=== PATIENT | female | born 1955 | race Caucasian/White ===

== ENCOUNTER → 2022-10-26 | Outpatient (CLI) | payer BC, SELFPAY | END | disposition home or self-care (01) | LOC: MFPLAB 12:00 | PROVIDERS: PCP Family Medicine; Visit Provider Family Medicine | DX: E03.9 Hypothyroidism, unspecified (principal) | CPT/HCPCS: 36415; 84443 ==

== ENCOUNTER → 2023-01-17 | Outpatient (CLI) | payer MEDICARE, SELFPAY ==
[2023-01-17 12:24] LABS: Absolute Lymphocyte Count 1.37 X10^3/uL (0.83-4.51); Absolute Neutrophil Count 3.9 X10^3/uL (2.0-7.7); Basophil# 0.03 X10^3/uL; Basophil% 0.5 % (0-1); Eosinophil# 0.15 X10^3/uL; Eosinophils% 2.6 % (0-5); Hemoglobin 12.1 g/dL (12.0-15.0); Lymphocyte # 1.37 X10^3/ul (0.83-4.51); Lymphocyte % 23.4 % (19-41); Mean Corp Hgb Conc 30.3 g/dL (32-36); Mean Corpuscular Hgb 27.3 pg (27.0-32.0); Mean Corpuscular Volume 90.3 fL (81-99); Mean Platelet Vol. 11.3 fl (6.2-12.0); Monocyte# 0.37 X10^3/uL; Monocyte% 6.3 % (0-10); NRBC Flagged by Analyzer 0 % (0-5); Neutrophil # 3.91 X10^3/uL (2.7-7.7); Neutrophil % 66.9 % (47-70); Platelet Count 189 K/mm3 (150-450); RBC Distribution Width CV 14.7 % (11.6-14.6); RBC Distribution Width SD 48.8 fl (35.1-43.9); Red Blood Count 4.43 M/mm3 (4.2-5.4); White Blood Count 5.9 K/mm3 (4.4-11.0)
[2023-01-17 13:23] LABS: ALB/GLOB Ratio 0.9 RATIO (0.9-2.4); AST(SGOT) 14 U/L (15-37); Alanine Aminotransfer ALT/SGPT 26 U/L (13-56); Albumin, Serum 3.4 g/dL (3.2-5.0); Alkaline Phosphatase 97 U/L (45-117); Anion Gap 5 (5-15); BUN 26 mg/dL (7-18); BUN/Creat Ratio 15.6 RATIO (10-20); Calcium,Total 8.6 mg/dL (8.5-10.1); Chloride 103 mmol/L (98-107); Cholesterol 168 mg/dL (200); Creatinine, Serum 1.67 mg/dL (0.55-1.02); EST Glomerular Filtration Rate 33 mL/min (>60); Est Glom Filt Rate - Afr Amer 40 mL/min (>60); Globulin 3.8 g/dL (2.2-4.2); Glucose 169 mg/dL (74-106); High Density Lipoprotein 39 mg/dL; Protein, Total 7.2 g/dL (6.4-8.2); Sodium Level 137 mmol/L (136-145); Thyroid Stim Hormone (TSH) 2.06 uIU/mL (0.358-3.74); Triglycerides 313 mg/dL; Very Low Density Lipoprotein 63 mg/dL (5-40)
[2023-01-17 13:34] LABS: Hemoglobin A1c 7.5 % (3.8-5.6)
== END | disposition home or self-care (01) ==
LOC: MFPLAB 10:51
PROVIDERS: PCP Family Medicine; Visit Provider Family Medicine
DX: E03.9 Hypothyroidism, unspecified (principal); E11.22 Type 2 diabetes mellitus with diabetic chronic kidney disease; N18.30 Chronic kidney disease, stage 3 unspecified
CPT/HCPCS: 36415; 80053; 80061; 83036; 84443; 85025

== ENCOUNTER → 2023-01-30 | Outpatient (CLI) | payer MEDICARE, OTHER, SELFPAY ==
--- NOTE | 2023-01-30 12:56 | US_ITS ---
EXAM: US RETROPERITONEAL LIMITED, RENAL CLINICAL INDICATION: CKD III TECHNIQUE: Limited grayscale and color Doppler sonographic evaluation of the retroperitoneum was performed. COMPARISON: No relevant prior studies available. FINDINGS: RIGHT KIDNEY: The right kidney measures 9.4 x 5.4 x 5.6 cm. The right renal cortex measures 1 cm. No hydronephrosis. No shadowing calculus. No perinephric collection is demonstrated. LEFT KIDNEY: The left kidney measures 10.1 x 6.0 x 5.1 cm. The left renal cortex measures 1.1 cm. No hydronephrosis. No shadowing calculus. No perinephric collection is demonstrated. BLADDER: Bladder measures 11.4 x 7.4 x 9.2 cm for volume of 406 mL. The urinary bladder wall measures 3 mm. US/Kidney and Bladder IMPRESSION: No acute findings in the retroperitoneum. Electronically Signed: Lauro Esquivel MD at 0:03 EDT ,
== END | disposition home or self-care (01) ==
PROVIDERS: PCP Family Medicine
DX: N18.31 Chronic kidney disease, stage 3a (principal)
CPT/HCPCS: 76770

== ENCOUNTER → 2023-06-12 | Outpatient (CLI) | payer MEDICARE, OTHER, SELFPAY ==
--- NOTE | 2023-06-12 08:59 | BD_ITS ---
STUDY: DUAL ENERGY X-RAY ABSORPTIOMETRY / DXA REASON FOR EXAM: Female, 67 years old. Z78.0 TECHNIQUE: Bone Mineral Density (BMD) measurements of lumbar spine and bilateral hips were obtained. COMPARISON: None. FINDINGS: Lumbar Spine (L1-L4): g/cm2 (1.096) / T-score (0.5) / Z-score (2.8) Findings are suggestive of normal bone density with a low fracture risk. Left Femur Total: g/cm2 (0.941) / T-score (0.0) / Z-score (1.6) Left Femoral Neck: g/cm2 (0.741) / T-score (-1.0) / Z-score (1.0) Right Femur Total: g/cm2 (0.952) / T-score (0.1) / Z-score (1.7) Right Femoral Neck: g/cm2 (0.938) / T-score (0.8) / Z-score (2.8) BD/Dexa Bone Density Study IMPRESSION: The patient is considered normal as outlined below according to World [employer]él[employer] Organization (WHO) criteria with a low fracture risk. Reference Information: The T-score is the number of standard deviations above or below the standard which is normal for young adults at their peak bone mineral density. The World Health Organization (WHO) interprets the T-scores as follows: Above -1 Normal bone density Between -1 and -2.5 Osteopenia Equal to / or below -2.5 Osteoporosis As a practical clinical guideline, osteopenia may be graded as follows: Mild -1 through -1.5 Moderate -1.6 through -2.0 Severe -2.1 through -2.4 The Z-score is the number of standard deviations above or below age-matched controls. A Z-score of less than -1.5 would be considered abnormal. References: 1. NIH Osteoporosis and Related Bone Diseases www osteo.org 2. International Society for Clinical Densitometry www iscd.org 3. National Osteoporosis Foundation www nof.org Electronically Signed: Gage Londono MD at 14:44 EDT ,
== END | disposition home or self-care (01) ==
LOC: OPBD 08:53
PROVIDERS: PCP Family Medicine; Referring Provider Family Medicine; Visit Provider Family Medicine
DX: Z78.0 Asymptomatic menopausal state (principal)
CPT/HCPCS: 77080

== ENCOUNTER → 2023-06-25 | Outpatient (CLI) | payer MEDICARE, OTHER, SELFPAY ==
[2023-06-25 11:52] LABS: Hematocrit 39.6 % (37-47); Hemoglobin 12.8 g/dL (12.0-15.0); Mean Corp Hgb Conc 32.3 g/dL (32-36); Mean Corpuscular Hgb 27.8 pg (27.0-32.0); Mean Corpuscular Volume 85.9 fL (81-99); Mean Platelet Vol. 10.5 fl (6.2-12.0); Platelet Count 206 K/mm3 (150-450); RBC Distribution Width SD 43.7 fl (35.1-43.9); Red Blood Count 4.61 M/mm3 (4.2-5.4)
[2023-06-25 11:56] LABS: Protein, Urine (Random) 21.1 mg/dL (<11.9); Protein:Creat Ratio 145 mg/g CRE (0-200)
[2023-06-25 12:06] LABS: Hemoglobin A1c 7.9 % (3.8-5.6)
[2023-06-25 12:08] LABS: Vitamin D,25 Hydroxy 13.2 ng/mL
[2023-06-25 12:12] LABS: Albumin, Serum 3.3 g/dL (3.2-5.0); BUN 26 mg/dL (7-18); BUN/Creat Ratio 15.4 RATIO (10-20); Calcium,Total 9.3 mg/dL (8.5-10.1); Chloride 101 mmol/L (98-107); Creatinine, Serum 1.69 mg/dL (0.55-1.02); EST Glomerular Filtration Rate 32 mL/min (>60); Est Glom Filt Rate - Afr Amer 39 mL/min (>60); Glucose 209 mg/dL (74-106); Phosphorus 3.4 mg/dL (2.5-4.9); Potassium 4.6 mmol/L (3.5-5.1); Sodium Level 137 mmol/L (136-145)
== END | disposition home or self-care (01) ==
PROVIDERS: PCP Family Medicine; Referring Provider Family Medicine; Visit Provider Family Medicine
DX: E11.22 Type 2 diabetes mellitus with diabetic chronic kidney disease (principal); N18.31 Chronic kidney disease, stage 3a
CPT/HCPCS: 36415; 80069; 82306; 82570; 83036; 83970; 84156; 85027

== ENCOUNTER → 2023-07-30 | Outpatient (CLI) | payer MEDICARE, OTHER, SELFPAY ==
[2023-07-30 11:28] LABS: Anion Gap 6 (5-15); BUN 27 mg/dL (7-18); BUN/Creat Ratio 16.2 RATIO (10-20); Calcium,Total 9.3 mg/dL (8.5-10.1); Chloride 100 mmol/L (98-107); Creatinine, Serum 1.67 mg/dL (0.55-1.02); EST Glomerular Filtration Rate 33 mL/min (>60); Est Glom Filt Rate - Afr Amer 40 mL/min (>60); Glucose 199 mg/dL (74-106); Potassium 4.4 mmol/L (3.5-5.1); Sodium Level 136 mmol/L (136-145)
--- NOTE | 2023-07-30 16:23 | RAD_ITS ---
EXAM: XR LEFT ELBOW COMPLETE, 3 OR MORE VIEWS CLINICAL INDICATION: Elbow injury TECHNIQUE: Frontal, lateral and oblique views of the left elbow. COMPARISON: No relevant prior studies available. FINDINGS: BONES/JOINTS: There is a fracture of the radial head. There is no displacement of the anterior or posterior fat pads. Preservation of the joint space. No destructive or sclerotic lesions. SOFT TISSUES: Unremarkable. No soft tissue swelling or gas. No radiopaque foreign body. RAD/Elbow min 3 Views IMPRESSION: Fracture of the radial head. Electronically Signed: Lauro Esquivel MD at 17:41 EDT ,
== END | disposition home or self-care (01) ==
PROVIDERS: PCP Family Medicine
DX: M79.622 Pain in left upper arm (principal); N18.31 Chronic kidney disease, stage 3a
CPT/HCPCS: 36415; 73080; 80048

== ENCOUNTER → 2023-10-24 | Outpatient (CLI) | payer MEDICARE, OTHER, SELFPAY ==
[2023-10-24 12:51] LABS: Anion Gap 7 (5-15); BUN 34 mg/dL (7-18); BUN/Creat Ratio 20.1 RATIO (10-20); Calcium,Total 9.5 mg/dL (8.5-10.1); Chloride 100 mmol/L (98-107); Creatinine, Serum 1.69 mg/dL (0.55-1.02); EST Glomerular Filtration Rate 32 mL/min (>60); Est Glom Filt Rate - Afr Amer 39 mL/min (>60); Glucose 182 mg/dL (74-106); Potassium 4.6 mmol/L (3.5-5.1); Sodium Level 135 mmol/L (136-145)
== END | disposition home or self-care (01) ==
LOC: MFPLAB 09:50
PROVIDERS: PCP Family Medicine; Visit Provider Family Medicine
DX: E11.9 Type 2 diabetes mellitus without complications (principal)
CPT/HCPCS: 36415; 80048

== ENCOUNTER 2024-01-10 09:30 | Outpatient (RCR) | payer MEDICARE, OTHER, SELFPAY ==
--- NOTE | 2023-12-13 13:02 | HP.PTEVAL ---
Patient's Visit Information Visit Information Visit Information: MIGUEL HYDE is a 68 year old F referred to Physical Therapy by Keith Singh MD with a diagnosis of FRACTURE OF HEAD RADIAL HEAD. Date of Evaluation: 12/13/23 Physical Therapist: Norman Nelson PT, Cert MDT, OCS Visit Plan Frequency: 2x /Week Duration: 4 Weeks Plan: RADIAL HEAD FRACTURE JULY 2023 PT INTERVENTIONS PROM/STRETCHING ELBOW ESPECIALLY EXTENSION ,STRENGTHENING EX'S BICEPS/TRICEPS/WRIST AND CP/MHP Subjective Subjective: This 68 y/o female presents to physical therapy with left fracture of radial head fracture due to falling end of July 2023 due to falling. Eventually seen DR 1 week later did x-rays showed radial head fx. Patient referred to [facility] recommended sling 6 weeks no recommendation for surgery or PT. Return to DR Singh c/o stiffness 3 weeks ago. Aggravated factors reaching behind ,grasping lifting something heavy like gallon milk. Alleviating factors heat. Patient denies paresthesia/tingling . Sleeping okay. Patient condition affects QOL and function. 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 by by 5-10 # to improve ADLS and housework tasks Goal Time Frame: 4-6 Weeks Goal 4:: Patient to improve quick dash by 5 points to improve QOL Goal Time Frame: 4-6 Weeks Goal 5:: Patient to demonstrate 50% improvement with less pain and improved function Goal Time Frame: 4-6 Weeks Rehabilitation Potential Physical Therapy Diagnosis: This patient fx radial head in July from falling with pain with decrease ROM elbow and weakness thus benefit from skilled PT P Rehabilitation Potential: Good Anticipated Interventions Patient/Client Instruction: Educate patient on: Condition and Plan of Care For the Purpose of:: To decrease pain, To increase ROM, To improve muscle performance and motor function, To improve ability to perform ADL's, To increase tolerance to activity/condition/position, To improve ability of physical actions for home/community/work/leisure, To improve health of tissue, To decrease soft tissue restriction, To increase flexibility/ROM, To assume or resume ADL's and To improve tolerance to ADL's Therapeutic Exercise to Include: Strength training, Flexibilty training, Passive ROM and Active ROM Comment: ELBOW/WRIST For the Purpose of:: To decrease pain, To increase ROM, To improve muscle performance and motor function, To improve ability to perform ADL's, To increase tolerance to activity/condition/position, To improve ability of physical actions for home/community/work/leisure, To improve health of tissue, To decrease soft tissue restriction, To increase flexibility/ROM and To improve tolerance to ADL's Text: Thank you for the opportunity to evaluate your patient. For Medicare and Medicare HMO plans, please review the plan of care and approve it. It will need to be FAXED BACK to us at [phone] for Medicare purposes. For Medicare only, by signing this I certify the plan of care. Please let me know if there are questions or concerns regarding this plan of care. Physician Signature: Date:
--- NOTE | 2024-01-10 09:54 | HP.PTDCSUM ---
Discharge Summary D/C summary: It has been my pleasure to treat MIGUEL HYDE referred by Keith Singh MD, with the diagnosis of FRACTURE OF HEAD RADIAL HEAD for a total of 7 visit(s). Discharge Date: Please see the following information for a summary of their discharge status. 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 Thank you for the referral of this patient. Sincerely, Norman Nelson, PT, Cert MDT, OCS Balance/Gait/Functional tests Balance/Special Test Scores Quick DASH Score: 4.5450 Improvement % Improvement: 90
== END 2024-01-10 19:00 | disposition home or self-care (01) ==
LOC: PT 09:30
PROVIDERS: PCP Family Medicine; Referring Provider Family Medicine; Visit Provider Family Medicine
DX: S52.123D Displaced fracture of head of unspecified radius, subsequent encounter for closed fracture with routine healing (principal)
CPT/HCPCS: 97110; 97162; 97530

== ENCOUNTER → 2024-01-28 | Outpatient (CLI) | payer MEDICARE, OTHER, SELFPAY ==
[2024-01-28 12:26] LABS: Hematocrit 40.6 % (37-47); Hemoglobin 12.7 g/dL (12.0-15.0); Mean Corp Hgb Conc 31.3 g/dL (32-36); Mean Corpuscular Hgb 27.8 pg (27.0-32.0); Mean Corpuscular Volume 88.8 fL (81-99); Mean Platelet Vol. 11.4 fl (6.2-12.0); Platelet Count 180 K/mm3 (150-450); RBC Distribution Width CV 14.9 % (11.6-14.6); RBC Distribution Width SD 47.9 fl (35.1-43.9); Red Blood Count 4.57 M/mm3 (4.2-5.4); White Blood Count 5.9 K/mm3 (4.4-11.0)
[2024-01-28 12:28] LABS: PTHIN 66.4 pg/mL (18.4-80.1)
[2024-01-28 12:31] LABS: Albumin, Serum 3.7 g/dL (3.2-5.0); BUN 35 mg/dL (7-18); Calcium,Total 9.7 mg/dL (8.5-10.1); Chloride 101 mmol/L (98-107); Creatinine, Serum 1.67 mg/dL (0.55-1.02); EST Glomerular Filtration Rate 33 mL/min (>60); Est Glom Filt Rate - Afr Amer 40 mL/min (>60); Glucose 161 mg/dL (74-106); Potassium 4.7 mmol/L (3.5-5.1); Sodium Level 136 mmol/L (136-145)
[2024-01-28 12:33] LABS: Vitamin D,25 Hydroxy 31.8 ng/mL
[2024-01-28 12:48] LABS: Protein, Urine (Random) 6.5 mg/dL (<11.9); Protein:Creat Ratio 133 mg/g CRE (0-200)
== END | disposition home or self-care (01) ==
LOC: MTLAB 10:11
PROVIDERS: PCP Family Medicine
DX: N18.31 Chronic kidney disease, stage 3a (principal)
CPT/HCPCS: 36415; 80069; 82306; 82570; 83970; 84156; 85027

== ENCOUNTER 2024-02-24 08:24 | Emergency (ER) | payer MEDICARE, OTHER, SELFPAY ==
[2024-02-24 08:24] VITALS: BP 166/72; PULSE 70; RESP 16; TEMP 36.3; O2SAT 100; BMI 42.6
--- NOTE | 2024-02-24 08:35 | EDS_ITS ---
HPI History of Present Illness Chief Complaint: Chest Pain Informant: patient and spouse/S.O. Narrative Narrative: 68-year-old female presenting to the emergency room with chest pain. Patient states that recently she has had a discomfort in her chest. She saw primary care today and EKG and has an echocardiogram scheduled for tomorrow. She states that she started taking a baby aspirin and has noticed that her heart rate has come down around 100 bpm to around 70. She states that she has developed a warm burning-like sensation midsternally that gets better with about 3 times. It does seem worse after eating. It does not radiate. This morning she did not feel well and perhaps like she might get sick. She states that after discussion she decided to come to emergency. She has a history of diabetes and hypertension. She is on Ozempic. She did not eat yet this morning as she took her Synthroid at 0730 hrs. [facility] Medical History (Updated 02/24/24 @ 11:[address] Good Cates DO) Gout Hypothyroidism Hypercholesteremia Hypertension Type 2 diabetes mellitus Home Medications ?Medication ?Instructions ?Recorded ?Last Taken ?Type allopurinol 300 mg tablet 150 mg PO DAILY 02/24/24 Unknown History dapagliflozin propanediol 5 mg 5 mg PO DAILY 02/24/24 Unknown History tablet (Farxiga) ergocalciferol (vitamin D2) 1,250 1,250 mcg PO QWEEK 02/24/24 Unknown History mcg (50,000 unit) capsule glimepiride 4 mg tablet 4 mg PO BID 02/24/24 Unknown History levothyroxine 75 mcg tablet 75 mcg PO DAILY 02/24/24 Unknown History (Synthroid) lisinopril 20 mg tablet 20 mg PO DAILY 02/24/24 Unknown History pioglitazone 15 mg tablet 15 mg PO DAILY 02/24/24 Unknown History pravastatin 20 mg tablet 20 mg PO DAILY 02/24/24 Unknown History semaglutide 2 mg/dose (8 mg/3 mL) 2 mg subcut QWEEK 02/24/24 Unknown History subcutaneous pen injector (Ozempic) Allergy/AdvReac Type Severity Reaction Status Date / Time adhesive tape Allergy Rash Verified 02/24/24 08:25 Social History Smoking Status: Never smoker ROS ROS ED Constitutional Constitutional ED: Denies chills, fever(s) or weight loss Eyes Eyes: Denies change in vision or diplopia ENT ENT ED: Denies ear pain, rhinorrhea or sore throat Cardiovascular Cardiovascular: Reports as per HPI and chest pain; Denies orthopnea, palpitations or racing heartbeat Respiratory/Chest Respiratory/Chest: Denies cough, dyspnea or orthopnea Gastrointestinal Gastrointestinal: Denies abdominal pain, diarrhea, nausea or vomiting Genitourinary Genitourinary ED: Denies dysuria, hematuria or urinary frequency Musculoskeletal Musculoskeletal: Denies arthralgias or myalgias Integumentary Denies abscess or rash Neurologic Neurologic: Denies headache(s) or weakness Psychiatric Psychiatric: Denies anxiety, depression, suicidal ideation or suicidal thoughts Endocrine Endocrinology: Denies polydipsia, polyphagia or polyuria Allergic/Immunologic Allergic/Immunologic ED: Denies mouth swelling, tongue swelling or urticaria EXAM Physical Exam Const Vital Signs: 02/24/24 08:24 02/24/24 10:24 Temperature 97.3 F L Temperature Source Temporal Pulse Rate 70 64 Respiratory Rate 16 19 H Blood Pressure 166/72 H 137/64 H Blood Pressure Mean 103 88 Pulse Ox 100 100 Oxygen Delivery Method Room Air Room Air Positive well nourished, well developed and obese General Appearance ED: well developed and NAD Nutritional Appearance: obese HEENT Reports normocephalic, head/scalp atraumatic and moist mucous membranes Eyes PERRL and EOMs intact bilaterally Neck no lymphadenopathy, supple and no JVD Resp normal respiratory effort and clear to auscultation bilaterally Cardio regular rate, regular rhythm and no murmurs GI normal to inspection, nondistended, normoactive bowel sounds and non-tender Palpation: soft Back/Spine no CVA tenderness and normal ROM Extremity normal to inspection General Extremety ED: Negative for edema General Extremity: Negative for edema Neuro oriented x3 and CN's II-XII intact bilaterally Sensorium / Orientation: alert Motor Exam: strength 5/5 throughout Psych mental status grossly normal Mood & Affect: Negative for depressed or tearful Skin no rashes or lesions noted and no wounds MDM MDM MDM Narrative Medical decision making narrative: Differential diagnosis includes but not limited to acute coronary syndrome aortic dissection pneumothorax pleural effusion GERD peptic ulcer disease pancreatitis biliary colic EKG is in normal sinus rhythm. There is no concerning ST segments. My independent interpretation of the chest x-ray is no acute process. White count returns at 5.8 hemoglobin 12.7 platelet count is 170. BMP shows a BUN of 31 creatinine 1.81 glucose 192. LFTs within normal limits lipase 32. Initial troponin is 6. A delta troponin was obtained and is 7. I think that the patient's symptoms are most likely due to reflux disease. She states that in the past she had similar symptoms and improved with [id number] antacids. She does not wish a prescription for any antacid medication at this time. She states she is continuing to get her echocardiogram tomorrow and follow-up with cardiology and her primary care doctor. She understands that if her symptoms persist she may require further evaluation including EGD. History & Record Review Discussion w/independent historian: Patient and Significant other Additional record(s) reviewed:: Prior outpatient record and Prior labs Lab Data Attestation: I reviewed the patient's lab results. Labs: Laboratory Results - last 24 hr 02/24/24 02/24/24 08:51 10:49 WBC 5.8 RBC 4.60 Hgb 12.7 Hct 40.1 MCV 87.2 MCH 27.6 MCHC 31.7 L RDW Std Deviation 45.7 H RDW Coeff of Hemal 14.4 Plt Count 170 MPV 10.9 Immature Gran % (Auto) 0.500 Neut % (Auto) 63.7 Lymph % (Auto) 26.1 Aiken % (Auto) 7.3 Eos % (Auto) 2.1 Baso % (Auto) 0.3 Absolute Neuts (auto) 3.7 Absolute Lymphs (auto) 1.51 Nucleated RBC % 0 Sodium 136 Potassium 4.2 Chloride 100 Carbon Dioxide 29.0 Anion Gap 7 BUN 31 H Creatinine 1.81 H Estim Creat Clear Calc 37.60 Est GFR (MDRD) Af Amer 36 L Est GFR (MDRD) Non-Af 30 L BUN/Creatinine Ratio 17.1 Glucose 192 H Calcium 10.1 Total Bilirubin 0.40 Direct Bilirubin 0.13 AST 18 ALT 20 Alkaline Phosphatase 87 Troponin I High Sens 6 7 Total Protein 7.1 Albumin 3.5 Globulin 3.6 Lipase 32 Radiography Diagnostic Testing: Clinical Impression(s) from Imaging Studies Chest X-Ray 02/24/24 08:48 IMPRESSION: Normal x-ray examination of the chest. Electronically Signed: Gage Londono MD at 9:18 EST , EKG Initial EKG: Attestation: I personally reviewed and interpreted this EKG as follows: Comments: Normal sinus rhythm ventricular rate of 65 bpm. Discharge Plan Triage Chief Complaint: Chest Pain ED Provider: Good Cates Dx/Rx/DC Orders Clinical Impression: Chest pain, GERD (gastroesophageal reflux disease) Instructions: ED GERD (Adult) Prescriptions: No Action pioglitazone 15 mg tablet 15 mg PO DAILY lisinopril 20 mg tablet 20 mg PO DAILY glimepiride 4 mg tablet 4 mg PO BID dapagliflozin propanediol [Farxiga] 5 mg tablet 5 mg PO DAILY Ozempic 2 mg/dose (8 mg/3 mL) pen injector 2 mg subcut QWEEK allopurinol 300 mg tablet 150 mg PO DAILY levothyroxine [Synthroid] 75 mcg tablet 75 mcg PO DAILY pravastatin 20 mg tablet 20 mg PO DAILY ergocalciferol (vitamin D2) 1,250 mcg (50,000 unit) capsule 1,250 mcg PO QWEEK Primary Care Provider: Keith Singh Referrals: Keith Singh MD [Primary Care Provider] - Keep Jaswinder appointment Print Language: Greenlandic Disposition Disposition: Home, Self Care
--- NOTE | 2024-02-24 08:48 | EKG12_ITS ---
Test Reason : CP Blood Pressure : */* mmHG Vent. Rate : 65 BPM Atrial Rate : 65 BPM P-R Int : 200 ms QRS Dur : 86 ms QT Int : 382 ms P-R-T Axes : 67 -15 4 degrees QTcB Int : 397 ms Normal sinus rhythm Low voltage QRS Borderline ECG Confirmed by JENNIFFER HINSON, YOBANI ([id number]), publications editor JULIUS WEN ([id number]) on 02/25/2024 1:50:04 PM Referred By: STAN Confirmed By: YOBANI ABAD MD
--- NOTE | 2024-02-24 08:48 | RAD_ITS ---
STUDY: X-RAY CHEST REASON FOR EXAM: Female, 68 years old. Chest pain TECHNIQUE: Single AP portable view of the chest. COMPARISON: None. FINDINGS: EKG electrodes are seen. The lungs are clear and expanded. There is no demonstrated pleural abnormality. Normal size heart. Normal mediastinum and [place]. Normal visualized pulmonary arteries. There is atherosclerotic tortuosity of the aortic arch and descending thoracic aorta. There are diffuse degenerative changes of the visualized thoracic spine. Normal visualized ribs, clavicles, and shoulders. There is no demonstrated abnormality of the visualized soft tissue structures of the upper abdomen. RAD/Chest 1 View (Portable) IMPRESSION: Normal x-ray examination of the chest. Electronically Signed: Gage Londono MD at 9:18 EST ,
[2024-02-24 09:04] LABS: Absolute Lymphocyte Count 1.51 X10^3/uL (0.83-4.51); Absolute Neutrophil Count 3.7 X10^3/uL (2.0-7.7); Basophil# 0.02 X10^3/uL; Basophil% 0.3 % (0-1); Eosinophil# 0.12 X10^3/uL; Eosinophils% 2.1 % (0-5); Hematocrit 40.1 % (37-47); Hemoglobin 12.7 g/dL (12.0-15.0); Lymphocyte # 1.51 X10^3/ul (0.83-4.51); Lymphocyte % 26.1 % (19-41); Mean Corp Hgb Conc 31.7 g/dL (32-36); Mean Corpuscular Hgb 27.6 pg (27.0-32.0); Mean Corpuscular Volume 87.2 fL (81-99); Mean Platelet Vol. 10.9 fl (6.2-12.0); Monocyte# 0.42 X10^3/uL; Monocyte% 7.3 % (0-10); NRBC Flagged by Analyzer 0 % (0-5); Neutrophil # 3.68 X10^3/uL (2.7-7.7); Neutrophil % 63.7 % (47-70); Platelet Count 170 K/mm3 (150-450); RBC Distribution Width CV 14.4 % (11.6-14.6); RBC Distribution Width SD 45.7 fl (35.1-43.9); White Blood Count 5.8 K/mm3 (4.4-11.0)
[2024-02-24] MEDS: Lidocaine 2% Viscous15 ML UDC 15 ML PO (09:08)
[2024-02-24] MEDS: Mag Hydrox/Al Hydrox/Simeth 30 ML UDC PO (09:08)
[2024-02-24 09:26] LABS: AST(SGOT) 18 U/L (15-37); Alanine Aminotransfer ALT/SGPT 20 U/L (13-56); Albumin, Serum 3.5 g/dL (3.2-5.0); Alkaline Phosphatase 87 U/L (45-117); Anion Gap 7 (5-15); BUN 31 mg/dL (7-18); BUN/Creat Ratio 17.1 RATIO (10-20); Bilirubin, Direct 0.13 mg/dL (0.00-0.30); Calcium,Total 10.1 mg/dL (8.5-10.1); Chloride 100 mmol/L (98-107); Creatinine, Serum 1.81 mg/dL (0.55-1.02); EST Glomerular Filtration Rate 30 mL/min (>60); Est Glom Filt Rate - Afr Amer 36 mL/min (>60); Globulin 3.6 g/dL (2.2-4.2); Glucose 192 mg/dL (74-106); Lipase 32 U/L (13-75); Potassium 4.2 mmol/L (3.5-5.1); Protein, Total 7.1 g/dL (6.4-8.2); Sodium Level 136 mmol/L (136-145); Troponin-I HS (w/2H Reflex) 6 pg/mL (3.0-54.0)
[2024-02-24 10:24] VITALS: BP 137/64; PULSE 64; RESP 19; O2SAT 100
[2024-02-24 10:59] LABS: Reflex Troponin-HS? (from REC) Y
[2024-02-24 11:17] LABS: Troponin-I HS 7 pg/mL (3.0-54.0)
[2024-02-24 11:50] VITALS: BP 133/84; PULSE 62; RESP 18; TEMP 36.7; O2SAT 99
== END 2024-02-24 11:51 | disposition home or self-care (01) ==
PROVIDERS: Emergency Provider Emergency Medicine; PCP Family Medicine; Visit Provider Emergency Medicine
DX: R07.9 Chest pain, unspecified (principal); E11.9 Type 2 diabetes mellitus without complications; I10 Essential (primary) hypertension; K21.9 Gastro-esophageal reflux disease without esophagitis; Z79.85 Long-term (current) use of injectable non-insulin antidiabetic drugs; E78.00 Pure hypercholesterolemia, unspecified; M10.9 Gout, unspecified; E03.9 Hypothyroidism, unspecified; Z79.890 Hormone replacement therapy; Z79.84 Long term (current) use of oral hypoglycemic drugs
CPT/HCPCS: 71045; 80048; 80076; 83690; 84484; 85025; 93005; 99284; A4216

== ENCOUNTER → 2024-02-25 | Outpatient (CLI) | payer MEDICARE, OTHER, SELFPAY ==
--- NOTE | 2024-02-25 08:48 | ECHOD_ITS ---
Reason For Study: 1ST DEGREE AV BLOCK Procedure This was a 2D Doppler, Color Flow transthoracic echocardiogram. Patient did not feel comfortable with Definity due to decreased kidney function. Exam performed in department. Left Ventricle Normal LV size. Left ventricular systolic function is normal. The estimated ejection fraction is 65 %. No regional wall motion abnormalities noted. Right Ventricle Normal RV size. Normal systolic function. Atria Normal left atrium. Normal right atrium. Mitral Valve Normal mitral valve. Tricuspid Valve Normal tricuspid valve. Aortic Valve Trisinus/trileaflet aortic valve. Pulmonic Valve Normal pulmonic valve. Great Vessels Normal aortic root. The pulmonary artery is normal size. Inferior vena cava collapse with respiration. Pericardium/Pleural No pericardial effusion. MMode/2D Measurements & Calculations LVIDd: 5.0 cm IVSd: 0.92 cm LVOT diam: 2.1 cm LVIDs: 3.0 cm LVPWd: 1.0 cm LVOT area: 3.4 cm2 RVDd: 3.2 cm FS: 40.1 % asc Aorta Diam: 3.2 cm LAV(MOD-bp): 33.3 ml LVAd ap4: 18.0 cm2 LAV(MOD-bp) Indexed: 15.8 ml/m2 LVLd ap4: 6.7 cm LAV(MOD-sp2): 37.0 ml EDV(MOD-sp4): 39.6 ml LAV(MOD-sp4): 30.2 ml EDV(sp4-el): 41.0 ml LVAs ap4: 10.1 cm2 LVLs ap4: 5.9 cm ESV(MOD-sp4): 14.5 ml ESV(sp4-el): 14.5 ml EF(MOD-sp4): 63.3 % EF(sp4-el): 64.6 % LVAd ap2: 18.5 cm2 SV(MOD-sp4): 25.1 ml SV(MOD-sp2): 25.3 ml LVLd ap2: 6.4 cm SI(MOD-sp4): 11.9 ml/m2 SI(MOD-sp2): 12.1 ml/m2 EDV(MOD-sp2): 43.2 ml EDV(sp2-el): 45.3 ml LVAs ap2: 10.7 cm2 LVLs ap2: 5.4 cm ESV(MOD-sp2): 17.9 ml ESV(sp2-el): 17.9 ml EF(MOD-sp2): 58.7 % SV(sp4-el): 26.5 ml Ao sinus diam: 3.[address] Junction: 2.7 cm LA dimension(2D): 3.5 cm LA A4 area: 13.9 cm2 RA A4 area: 12.0 cm2 TAPSE: 1.9 cm Time Measurements MV dec time: 0.18 sec Doppler Measurements & Calculations MV E max rex: 94.4 cm/sec Lat Peak E' Rex: 9.8 cm/sec Med Peak E' Rex: 8.2 cm/sec MV A max rex: 90.3 cm/sec E/E' lat: 9.7 E/E' med: 11.5 MV E/A: 1.0 MV dec slope: 532.7 cm/sec2 Ao V2 max: 121.6 cm/sec LV V1 max: 93.3 cm/sec Ao max P.9 mmHg LV V1 max P.5 mmHg Ao V2 mean: 89.7 cm/sec LV V1 mean P.8 mmHg Ao mean P.5 mmHg LV V1 mean: 63.1 cm/sec Ao V2 VTI: 26.9 cm LV V1 VTI: 22.0 cm AV (velocity ratio): 0.82 ORLIN(I,D): 2.8 cm2 ORILN(V,D): 2.6 cm2 SV(LVOT): 74.3 ml PA V2 max: 87.1 cm/sec ECHO/Echo Complete Interpretation Summary Normal LV size. Left ventricular systolic function is normal. The estimated ejection fraction is 65 %. Structurally normal valves. Ordering Physician: Keith Singh Referring Physician: Keith Singh Performed By: Martina Ruvalcaba RDCS
== END | disposition home or self-care (01) ==
LOC: CVS 08:48
PROVIDERS: PCP Family Medicine; Referring Provider Family Medicine; Visit Provider Family Medicine
DX: I44.0 Atrioventricular block, first degree (principal); E11.9 Type 2 diabetes mellitus without complications; E03.9 Hypothyroidism, unspecified; I10 Essential (primary) hypertension; E78.5 Hyperlipidemia, unspecified; R94.31 Abnormal electrocardiogram [ECG] [EKG]; K21.9 Gastro-esophageal reflux disease without esophagitis
CPT/HCPCS: 93306

== ENCOUNTER → 2024-03-23 | Outpatient (CLI) | payer MEDICARE, OTHER, SELFPAY ==
[2024-03-23 13:09] LABS: Anion Gap 8 (5-15); BUN 24 mg/dL (7-18); BUN/Creat Ratio 14.5 RATIO (10-20); Calcium,Total 10.1 mg/dL (8.5-10.1); Chloride 101 mmol/L (98-107); Creatinine, Serum 1.66 mg/dL (0.55-1.02); EST Glomerular Filtration Rate 33 mL/min (>60); Est Glom Filt Rate - Afr Amer 40 mL/min (>60); Glucose 197 mg/dL (74-106); Potassium 4.3 mmol/L (3.5-5.1); Sodium Level 135 mmol/L (136-145)
== END | disposition home or self-care (01) ==
PROVIDERS: PCP Family Medicine; Referring Provider Family Medicine; Visit Provider Family Medicine
DX: I10 Essential (primary) hypertension (principal)
CPT/HCPCS: 36415; 80048

== ENCOUNTER → 2024-04-28 | Outpatient (CLI) | payer MEDICARE, OTHER, SELFPAY ==
[2024-04-28 12:47] LABS: PTHIN 119.7 pg/mL (18.4-80.1)
[2024-04-28 15:41] LABS: Hemoglobin A1c 7.4 % (3.8-5.6)
== END | disposition home or self-care (01) ==
LOC: MFPLAB 10:38
PROVIDERS: PCP Family Medicine; Referring Provider Family Medicine; Visit Provider Family Medicine
DX: E11.22 Type 2 diabetes mellitus with diabetic chronic kidney disease (principal); N18.30 Chronic kidney disease, stage 3 unspecified; E20.89 Other specified hypoparathyroidism; E03.9 Hypothyroidism, unspecified
CPT/HCPCS: 36415; 82306; 83036; 83970; 84443

== ENCOUNTER → 2024-07-29 | Outpatient (CLI) | payer MEDICARE, OTHER, SELFPAY ==
[2024-07-29 12:26] LABS: Hematocrit 42.1 % (37-47); Hemoglobin 13.4 g/dL (12.0-15.0); Mean Corp Hgb Conc 31.8 g/dL (32-36); Mean Corpuscular Hgb 27.7 pg (27.0-32.0); Mean Corpuscular Volume 87.2 fL (81-99); Mean Platelet Vol. 11.6 fl (6.2-12.0); Platelet Count 188 K/mm3 (150-450); RBC Distribution Width CV 14.1 % (11.6-14.6); RBC Distribution Width SD 45.3 fl (35.1-43.9); Red Blood Count 4.83 M/mm3 (4.2-5.4); White Blood Count 6.3 K/mm3 (4.4-11.0)
[2024-07-29 13:24] LABS: Protein, Urine (Random) < 6.0 mg/dL (0.0-12.0); Protein:Creat Ratio 59 mg/g CRE (0-200)
[2024-07-29 13:37] LABS: Anion Gap 12 (5-15); BUN 42 mg/dL (4-19); Calcium,Total 9.4 mg/dL (7.6-11.0); Carbon Dioxide 23.5 mmol/L (21.0-32.0); Chloride 101 mmol/L (98-108); Creatinine, Serum 1.74 mg/dL (0.70-1.20); EST Glomerular Filtration Rate 32 (>60); Glucose 206 mg/dL (70-99); Phosphorus 3.7 mg/dL (2.7-4.5); Potassium 4.9 mmol/L (3.3-5.1); Sodium Level 136 mmol/L (133-145)
[2024-07-29 13:39] LABS: Vitamin D,25 Hydroxy 26.5 ng/mL (30-100)
[2024-07-29 13:41] LABS: PTHIN 69 pg/mL (11-61)
== END | disposition home or self-care (01) ==
LOC: MTLAB 09:39
PROVIDERS: PCP Family Medicine
DX: N18.31 Chronic kidney disease, stage 3a (principal)
CPT/HCPCS: 36415; 80069; 82306; 82570; 83970; 84156; 85027

== ENCOUNTER → 2024-09-08 | Outpatient (CLI) | payer MEDICARE, OTHER, SELFPAY ==
--- NOTE | 2024-09-08 09:26 | US_ITS ---
PROCEDURE: HEAD/NECK SOFT TISSUE 09/08/2024 REASON FOR EXAM: LOCALIZED SWELLING, MASS AND LUMP, NECK TECHNIQUE: Targeted soft tissue ultrasound of the right neck under the jaw COMPARISON: None US/Head/Neck Soft Tissue IMPRESSION: Probable lymph node within the region of interest at the right upper neck measu ring 1.2 x 0.5 x 0.4 cm. Reading Location: [id number]
== END | disposition home or self-care (01) ==
LOC: US 09:21
PROVIDERS: PCP Family Medicine; Referring Provider Family Medicine; Visit Provider Family Medicine
DX: R22.1 Localized swelling, mass and lump, neck (principal)
CPT/HCPCS: 76536

== ENCOUNTER → 2024-10-07 | Outpatient (CLI) | payer MEDICARE, OTHER, SELFPAY ==
[2024-10-07 13:40] LABS: AST(SGOT) 22 U/L (<=31); Alanine Aminotransfer ALT/SGPT 19 U/L (<=34); Albumin, Serum 3.9 g/dL (3.4-4.8); Alkaline Phosphatase 81 U/L (35-104); Anion Gap 11 (5-15); BUN 32 mg/dL (4-19); BUN/Creat Ratio 18.4 RATIO (10-20); Calcium,Total 9.4 mg/dL (7.6-11.0); Carbon Dioxide 24.4 mmol/L (21.0-32.0); Chloride 102 mmol/L (98-108); Cholesterol 208 mg/dL (<=200); Globulin 3.0 g/dL (2.2-4.2); Glucose 184 mg/dL (70-99); Low Density Lipoprotein Calc. 100 mg/dL; Potassium 4.8 mmol/L (3.3-5.1); Triglycerides 331 mg/dL; Very Low Density Lipoprotein 66 mg/dL (5-40); Vitamin D,25 Hydroxy 28.4 ng/mL (30-100); cholesterol:hdl ratio screen 5.01
== END | disposition home or self-care (01) ==
LOC: MTLAB 10:17
PROVIDERS: PCP Family Medicine; Referring Provider Family Medicine; Visit Provider Family Medicine
DX: E78.1 Pure hyperglyceridemia (principal); N18.30 Chronic kidney disease, stage 3 unspecified
CPT/HCPCS: 36415; 80053; 80061; 82306

== ENCOUNTER → 2024-11-18 | Outpatient (CLI) | payer MEDICARE, OTHER, SELFPAY ==
[2024-11-18 13:04] LABS: Microalbumin,Random Urine < 12.0 mg/L (<20 mg/L)
--- OUTSIDE RECORDS SUMMARY | 2024-11-18 19:19 | XMS RPT_ITS | CCD ---
Author Organization [facility] CliniSyal Care Team Providers Care Chronic Disease Epidemiologist Name Role Phone Pito Moya MD Primary Care Provider Keith Heart MD Primary Care Provider UNA, CHALON Primary Care Unavailable YAZMIN FARLEY Referring Unavailable Keith Heart MD Primary Care Provider YAZMIN FARLEY Attending Unavailable YAZMIN FARLEY Referring Unavailable UNA, CHALON Primary Care Unavailable YAZMIN FARLEY Referring Unavailable UNA, CHALON Primary Care Unavailable Una HINSON, Keith Primary Care Provider PITO ECHEVARRIA Attending Provider [phone] PITO ECHEVARRIA Referring Provider [phone] Keith Heart MD Attending Provider Keith Heart MD Referring Provider Una, Betyon Attending Unavailable Una, Chalon Primary Care Unavailable Una, Chalon Referring Unavailable Una, Chalon Attending Unavailable Una, Chalon Primary Care Unavailable Una, Chalon Referring Unavailable OLVIN WALTER Attending Unavailable BASOLVIN TREVIÑO Referring Unavailable Una, Chalon Primary Care Unavailable Wilmer Grey Attending Unavailable Wilmer Grey Referring Unavailable Una, Chalon Primary Care Unavailable Una, Chalon Attending Unavailable Una, Chalon Referring Unavailable Una, Chalon Primary Care Unavailable Jose De Jesus Brizuela Attending Unavailable Una, Chalon Primary Care Unavailable Wilmer Grey Attending Unavailable Una, Chalon Referring Unavailable Una, Chalon Primary Care Unavailable Una, Chalon Attending Unavailable Una, Chalon Referring Unavailable Una, Chalon Primary Care Unavailable Una, Chalon Attending Unavailable Una, Chalon Referring Unavailable Una, Chalon Primary Care Unavailable Una, Chalon Primary Care Unavailable OLVIN WALTER Attending Unavailable BASKAMILA OLVIN Referring Unavailable Keith Heart Primary Care Unavailable Keith Heart Attending Unavailable Keith Heart Referring Unavailable Good Cates Attending Unavailable Una, Chalon Primary Care Unavailable Una, Betyon Primary Care Unavailable Keith Heart Attending Unavailable Allergies Allergy Classification Reported Allergen(s) Allergy Type Date of Onset Reaction(s) Facility (20 sources) Adhesive Tape; Translations: [ADHESIVE TAPE (ROSINS)] Propensity to adverse reactions 5 [facility] (20 sources) levoFLOXacin; Translations: [LEVOFLOXACIN] Drug Allergy 0 Intolerance [facility] (20 sources) Simvastatin; Translations: [SIMVASTATIN] Drug Allergy 3 Other: See Comments [facility] (20 sources) Seasonal [Other] Propensity to adverse reactions 6 [facility] Work Phone: (2 sources) OTHER; Translations: [OTHER] Propensity to adverse reactions (disorder) 6 [facility] Other [facility] (3 sources) Adhesive Tape; Translations: [adhesive tape] Allergy to substance 4 Rash [facility] (2 sources) atorvastatin Drug Allergy 4 Other [facility] Comment on above: myalgia (1 source) atorvastatin Drug Allergy 4 [facility] Repository (1 source) levoFLOXacin Drug Allergy 4 [facility] Repository Medications Current Medications Medication Drug Class(es) Dates Sig (Normalized) Sig (Original) allopurinol 300 mg oral tablet (20 sources) Xanthine Oxidase Inhibitor Start: 02-24-2024 Allopurinol 300 mg tablet Active 150 mg PO DAILY February 24, 2024 1:00am Start: 12-26-2020 End: 12-15-2021 take 1 tablet by mouth once daily allopurinol (ZYLOPRIM) 300 mg tablet Indications: 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 For gout. take 1 tablet by tootie th once daily for GOUT Ascorbic Acid (3 sources) Vitamin C ascorbic acid (VITAMIN C ORAL) Take by mouth. Active aspirin 81 mg delayed release oral tablet (2 sources) Platelet Aggregation Inhibitor, Nonsteroidal Anti-inflammatory Drug Start: 2023 take 1 tablet by mouth once daily Aspirin (Adult Aspirin Regimen) 81 mg tablet,delayed release (DR/EC) Active 81 mg PO daily March 13, 2024 1:00am atorvastatin 20 mg oral tablet (7 sources) HMG-CoA Reductase Inhibitor Start: 2020 End: 2021 take 1 tablet by mouth once daily for hyperlipidemia atorvastatin (LIPITOR) 20 mg tablet Take 1 tablet by mouth once daily. For cholesterol. 90 tablet 3 02/20/2021 01/16/2022 Discontinued Comment on above: Take 1 tablet by tootie th once daily. For cholesterol. bisoprolol fumarate 2.5 mg / hydroCHLOROthiazide 6.25 mg oral tablet (20 sources) Thiazide Diuretic, beta-Adrenergic Gustavo Start: 2023 Bisoprolol-Hydroc hlorothiazide 2.5-6.25 mg tablet Active {tbl} PO TWICE A DAY March 09, 2024 1:00am Start: 01-09-2022 End: 10-19-2022 take 1 tablet by mouth twice daily bisoprolol-hydroCHLOROthiazide (ZIAC) 2.5-6.25 mg per tablet Indications: Essential hypertension, benign Take 1 tablet by mouth twice daily. 180 tablet 3 10/19/2022 Active Start: 11-14-2020 take 1 tablet by tootie th twice daily bisoprolol-hydroCHLOROthiazide (ZIAC) 2.5-6.25 mg per tablet Indications: Essential hypertension, benign Take 1 tablet by mouth twice daily. 180 tablet 3 11/14/2020 Active Comment on above: Take 1 tablet by tootie th twice daily. Blood-Glucose Meter (FREESTYLE FREEDOM LITE) monitoring kit (20 sources) Start: 02-03-2018 Blood-Glucose Meter (FREESTYLE FREEDOM LITE) monitoring kit 1 Each as needed. 1 Each 02/03/2018 Active Start: 02-03-2018 Blood-Glucose Meter (FREESTYLE FREEDOM LITE) monitoring kit 1 Each as needed. 1 Each 0 02/03/2018 Active Comment on above: 1 Each as needed. Calcium (3 sources) Phosphate Binder, Calcium CALCIUM ORAL Take by mouth. Active cefuroxime 250 mg oral tablet (1 source) Cephalosporin Antibacterial Start: End: take 1 tablet by mouth twice daily cefUROXime (CEFTIN) 250 mg tablet Take 1 tablet by mouth twice daily for 10 days. 20 tablet 0 06/09/2022 06/19/2022 Active Comment on above: Take 1 tablet by tootie twice daily for 10 days. cephalexin 500 mg oral capsule (2 sources) Cephalosporin Antibacterial Start: End: take 1 capsule by mouth three times daily cephALEXin (KEFLEX) 500 mg capsule Indications: Urinary frequency Take 1 capsule by mouth three times daily for 7 days. 30 capsule 0 03/11/2022 03/18/2022 Active Comment on above: Take 1 capsule by mo [facility] three times daily for 7 days. dapagliflozin 5 mg oral tablet (5 sources) Sodium-Glucose Cotransporter 2 Inhibitor Start: take 1 tablet by mouth once daily Dapagliflozin Propanediol (Dapagliflozin Propanediol 5 Mg Tablet) 5 mg tablet Active 5 mg PO DAILY February 24, 2024 1:00am ergocalciferol 1.25 mg oral capsule (5 sources) Provitamin D2 Compound Start: Ergocalciferol (Vitamin D2) 1,250 mcg (50,000 unit) capsule Active 1250 ug PO EVERY WEEK February 24, 2024 1:00am glimepiride 4 mg oral tablet (20 sources) Sulfonylurea Start: take 1 tablet by mouth twice daily Glimepiride 4 mg tablet Active 4 mg PO TWICE A DAY February 24, 2024 1:00am Start: 05-29-2021 End: 10-19-2022 take 1 tablet by mouth twice daily at mealtime glimepiride (AMARYL) 4 mg tablet Indications: Type 2 diabetes mellitus with stage 3a chronic kidney disease, without long-term current use of insulin (HCC) Take 1 tablet by mouth twice daily with meals. 180 tablet 1 10/19/2022 Active Comment on above: Take 1 tablet by tootie twice daily with meals. levothyroxine sodium 0.075 mg oral tablet (20 sources) l-Thyroxine Start: take 1 tablet by mouth once daily Levothyroxine (Levothyroxine 75 Mcg Tablet) 75 mcg tablet Active 75 ug PO DAILY February 24, 2024 1:00am Start: 05-29-2021 End: 05-30-2022 take 1 tablet by mouth once daily for thyroid dysfunction levothyroxine (SYNTHROID) 75 mcg tablet Indications: Type 2 diabetes mellitus with stage 3a chronic kidney disease, without long-term current use of insulin (HCC) Take 1 tablet by mouth once daily. Take on empty stomach. For Thyroid 90 tablet 3 05/31/2022 Active Comment on above: Take 1 tablet by tootie th once daily. Take on empty stomach. For Thyroid lisinopril 20 mg oral tablet (20 sources) Angiotensin Converting Enzyme Inhibitor Start: 02-24-2024 take 1 tablet by mouth once daily Lisinopril 20 mg tablet Active 20 mg PO DAILY February 24, 2024 1:00am Start: 09-26-2021 End: 12-11-2023 take 1 tablet by mouth once daily lisinopril (ZESTRIL) 40 mg tablet Indications: Essential hypertension, benign Take 1 tablet by mouth once daily. 90 tablet 1 10/19/2022 12/11/2023 Discontinued (Other) Start: 11-14-2020 take 1 tablet by tootie th once daily lisinopril (ZESTRIL, PRINIVIL) 40 mg tablet Indications: Essential hypertension, benign Take 1 tablet by mouth once daily. 90 tablet 3 11/14/2020 Active Comment on above: Take 1 tablet by tootie th once daily. pioglitazone 15 mg oral tablet (20 sources) Peroxisome Proliferator Receptor alpha Agonist, Peroxisome Proliferator Receptor gamma Agonist, Thiazolidinedione Start: 02-24-20 take 1 tablet by mouth once daily Pioglitazone 15 mg tablet Active 15 mg PO DAILY February 24, 2024 1:00am Start: 01-09-2022 End: 07-10-2022 take 1 tablet by mouth once daily pioglitazone (ACTOS) 15 mg tablet Indications: Type 2 diabetes mellitus with stage 3a chronic kidney disease, without long-term current use of insulin (HCC) Take 1 tablet by mouth once daily. 90 tablet 1 07/10/2022 Active Start: 07-19-2021 take 1 tablet by tootie th once daily pioglitazone (ACTOS) 15 mg tablet Indications: Type 2 diabetes mellitus with stage 3a chronic kidney disease, without long-term current use of insulin (HCC) Take 1 tablet by mouth once daily. 30 tablet 5 07/19/2021 Active Comment on above: Take 1 tablet by tootie th once daily. pravastatin sodium 40 mg oral tablet (20 sources) HMG-CoA Reductase Inhibitor Start: 03-13-2024 take 1 tablet by mouth once daily Pravastatin 40 mg tablet Active 40 mg PO daily March 13, 2024 1:00am Start: 02-24-2024 End: 03-13-2024 take 1 tablet by mouth once daily Pravastatin 20 mg tablet Discontinued 20 mg PO DAILY February 24, 2024 1:00am March 13, 2024 11:50am Start: 01-16-2022 End: 07-10-2022 take 1 tablet by mouth once daily at bedtime pravastatin (PRAVACHOL) 20 mg tablet Take 1 tablet by mouth daily at bedtime. 90 tablet 1 07/10/2022 Active Comment on above: Take 1 tablet by tootie th daily at bedtime. semaglutide (OZEMPIC) 2 mg/dose (8 mg/3 mL) pen injector (20 sources) Start: 03-07-20 End: 09-04-19 23 inject 2 mg by subcutaneous injection every week semaglutide (OZEMPIC) 2 mg/dose (8 mg/3 mL) pen injector Inject 2 mg subcutaneously one time a week. 3 mL 5 03/07/2022 09/03/2022 Active Start: 09-26-2021 End: 03-06-2022 inject 2 mg by subcutaneous injection every week semaglutide (OZEMPIC) 2 mg/dose (8 mg/3 mL) pen injector Inject 2 mg subcutaneously one time a week. 3 mL 5 09/26/2021 03/06/2022 Discontinued Start: 09-26-2021 End: 03-25-2022 inject 2 mg by subcutaneous injection every week semaglutide (OZEMPIC) 2 mg/dose (8 mg/3 mL) pen injector Inject 2 mg subcutaneously one time a week. 3 mL 5 09/26/2021 03/25/2022 Active Comment on above: Inject 2 mg subcutan eously one time a week. semaglutide (OZEMPIC) 2 mg/dose (8 mg/3 mL) pen injector (8 sources) Start: 023 inject 2 mg by subcutaneous injection every week semaglutide (OZEMPIC) 2 mg/dose (8 mg/3 mL) pen injector Inject 2 mg subcutaneously one time a week. 3 mL 5 08/27/2022 Active Start: 08-27-2022 End: 02-23-2023 inject 2 mg by subcutaneous injection every week semaglutide (OZEMPIC) 2 mg/dose (8 mg/3 mL) pen injector Inject 2 mg subcutaneously one time a week. 3 mL 5 08/27/2022 02/23/2023 Active Comment on above: Inject 2 mg subcutan eously one time a week. Semaglutide (Ozempic) 2 mg/dose (8 mg/3 mL) pen injector (2 sources) Start: 02-24-2024 Semaglutide (Ozempic) 2 mg/dose (8 mg/3 mL) pen injector Active 2 mg SC EVERY WEEK February 24, 2024 1:00am valACYclovir 1000 mg oral tablet (20 sources) Herpesvirus Nucleoside Analog DNA Polymerase Inhibitor, Herpes Simplex Virus Nucleoside Analog DNA Polymerase Inhibitor, Herpes Zoster Virus Nucleoside Analog DNA Polymerase Inhibitor Start: 03-13-2024 Valacyclovir 1 gram tablet Active 1000 mg PO TWICE A DAY as needed March 13, 2024 11:52am Start: 03-09-2024 End: 03-13-2024 Valacyclovir 1 gram tablet Discontinued 1000 mg PO TWICE A DAY March 09, 2024 1:00am March 13, 2024 11:52am Start: 04-22-2020 End: 12-11-2023 take 2 tablets by mouth twice daily as needed valACYclovir (VALTREX) 500 mg tablet Take 2 tablets by mouth twice daily. for one day as needed for episode of cold sores 24 tablet 1 04/22/2020 12/11/2023 Discontinued (Other) Comment on above: Take 2 tablets by [facility] twice daily. for one day as needed for episode of cold sores Completed/Discontinued Medications Medication Drug Class(es) Dates Sig (Normalized) Sig (Original) azithromycin 500 mg oral tablet (1 source) Macrolide Antimicrobial Start: 08-10-2020 End: 07-19-2021 take 1 tablet by mouth once daily azithromycin (ZITHROMAX) 500 mg tablet Take 1 tablet by mouth once daily. 5 tablet 0 08/10/2020 07/19/2021 Discontinued Comment on above: Take 1 tablet by tootie th once daily. doxycycline monohydrate 100 mg oral tablet (2 sources) Tetracycline-class Drug Start: 06-07-2022 End: 06-14-2022 take 1 tablet by mouth twice daily doxycycline monohydrate 100 mg tablet Indications: Sinobronchitis Take 1 tablet by mouth twice daily for 7 days. 14 tablet 0 06/07/2022 06/09/2022 Discontinued Comment on above: Take 1 tablet by tootie th twice daily for 7 days. empagliflozin 10 mg oral tablet (6 sources) Sodium-Glucose Cotransporter 2 Inhibitor Start: 10-23-2022 End: 12-11-2023 take 1 tablet by mouth once daily at breakfast empagliflozin (JARDIANCE) 10 mg tablet Take 1 tablet by mouth daily with breakfast. 30 tablet 1 10/23/2022 12/11/2023 Discontinued (Other) Comment on above: Take 1 tablet by tootie th daily with breakfast. Ipratropium [place] 42 mcg (0.06 %) spray,non-aerosol (2 sources) Start: 03-09-2024 End: 03-13-2024 Ipratropium [place] 42 mcg (0.06 %) spray,non-aerosol Discontinued 2 NMA INTRANASAL THREE TIMES A DAY as needed March 09, 2024 1:00am March 13, 2024 11:52am meloxicam 15 mg oral tablet (1 source) Nonsteroidal Anti-inflammatory Drug Start: 11-02-2019 End: 07-19-2021 take 1 tablet by mouth once daily at mealtime meloxicam (MOBIC) 15 mg tablet Take 1 tablet by mouth once daily. With food. 30 tablet 11 11/02/2019 07/19/2021 Discontinued Comment on above: Take 1 tablet by tootie th once daily. With food. metFORMIN hydrochloride 500 mg oral tablet (20 sources) Biguanide Start: 07-10-2022 End: 01-06-2023 take 1 tablet by mouth twice daily at mealtime metFORMIN (GLUCOPHAGE) 500 mg tablet Take 1 tablet by mouth twice daily with meals. 180 tablet 1 07/10/2022 10/19/2022 Discontinued (Clinical Decision) Start: 01-09-2022 End: 07-10-2022 take 1 tablet by mouth twice daily at mealtime metFORMIN (GLUCOPHAGE) 1,000 mg tablet Take 1 tablet by mouth twice daily with meals. 180 tablet 3 01/09/2022 07/10/2022 Discontinued Start: 02-20-2021 take 1 tablet by tootie th twice daily at mealtime metFORMIN (GLUCOPHAGE) 1,000 mg tablet Take 1 tablet by mouth twice daily with meals. 180 tablet 3 02/20/2021 Active Comment on above: Take 1 tablet by tootie th twice daily with meals. semaglutide (OZEMPIC) 1 mg/dose (4 mg/3 mL) pen (2 sources) Start: 2020 inject 1 mg by subcutaneous injection every week semaglutide (OZEMPIC) 1 mg/dose (4 mg/3 mL) pen Inject 1 mg subcutaneously one time a week. 4 Each 10/24/2020 Active Comment on above: Inject 1 mg subcutan eously one time a week. SITagliptin 100 mg oral tablet (1 source) Dipeptidyl Peptidase 4 Inhibitor Start: 2021 End: 2021 take 1 tablet by mouth once daily SITagliptin (JANUVIA) 100 mg tablet Take 1 tablet by mouth once daily. 30 tablet 5 07/19/2021 07/19/2021 Discontinued Comment on above: Take 1 tablet by tootie th once daily. triamcinolone acetonide 1 mg/ml topical cream (20 sources) Corticosteroid Start: 2020 End: 2023 triamcinolone acetonide (KENALOG) 0.1 % cream Apply 1 application to affected area three times daily. Apply sparingly to area for rash/itching. 80 g 12/28/2020 12/11/2023 Discontinued (Other) Comment on above: Apply 1 application to affected area three times daily. Apply sparingly to area for rash/itching. Problems Active Problems Problem Classification Problem Date Documented Date Episodic/Chronic Chronic kidney disease (20 sources) Chronic kidney disease stage 3; Translations: [CKD (chronic kidney disease), stage III] Onset: 11-02-2019 11-02-2019 Chronic Chronic kidney disease (1 source) Chronic kidney disease; Translations: [Chronic kidney disease, stage 3a] Onset: 08-05-2024 Conduction disorders (1 source) Atrioventricular block, first degree; Translations: [Atrioventricular block, first degree] Onset: 02-26-2024 Chronic Diabetes mellitus with complications (20 sources) Type 2 diabetes mellitus; Translations: [Type 2 diabetes mellitus with diabetic chronic kidney disease] Onset: 06-18-2015 Chronic Diabetes mellitus without complication (4 sources) Diabetes mellitus; Translations: [Type 2 diabetes mellitus without complications] Onset: 10-31-2006 Resolved: 08-03-2013 08-03-2013 Chronic Disorders of lipid metabolism (20 sources) Hyperlipidemia; Translations: [Hyperlipidemia, unspecified] Onset: 10-31-2006 Resolved: 07-23-2012 Chronic Esophageal disorders (2 sources) Gastroesophageal reflux disease; Translations: [Gastro-esophageal reflux disease without esophagitis] 03-03-2024 Chronic Essential hypertension (20 sources) Benign essential hypertension; Translations: [Essential (primary) hypertension] Onset: 02-21-2005 Chronic Genitourinary symptoms and ill-defined conditions (1 source) Increased frequency of urination; Translations: [Frequency of micturition] Episodic Glaucoma (20 sources) Glaucoma; Translations: [Other specified glaucoma] 02-20-2005 Chronic Gout and other crystal arthropathies (20 sources) Chronic gout without tophus; Translations: [Chronic gout, unspecified, without tophus (tophi)] Onset: 04-28-2018 Resolved: 04-22-2020 Chronic Osteoarthritis (20 sources) Arthritis of knee; Translations: [Unilateral primary osteoarthritis, unspecified knee] Onset: 09-21-2019 09-21-2019 Chronic Other nutritional; endocrine; and metabolic disorders (20 sources) Body mass index 40+ - severely obese; Translations: [Morbid (severe) obesity due to excess calories] Onset: 11-22-2014 Chronic Other screening for suspected conditions (not mental disorders or infectious disease) (9 sources) Patient encounter status; Translations: [Encounter for screening for malignant neoplasm of colon] Onset: 05-29-2023 10-19-2022 Episodic Other skin disorders (1 source) Localized swelling, mass and lump, neck; Translations: [Localized swelling, mass and lump, neck] Onset: 09-10-2024 Episodic Other upper respiratory disease (20 sources) Allergic rhinitis; Translations: [Other allergic rhinitis] 02-20-2005 Chronic Other upper respiratory disease (20 sources) Vasomotor rhinitis; Translations: [Vasomotor rhinitis] Onset: 07-09-2009 07-09-2009 Chronic Other upper respiratory disease (1 source) Pain in throat; Translations: [Pain in throat] Episodic Other upper respiratory infections (1 source) Chronic sinusitis; Translations: [Chronic sinusitis, unspecified] Chronic Other upper respiratory infections (1 source) Sore throat symptom; Translations: [Acute pharyngitis, unspecified] Episodic Residual codes; unclassified (1 source) Other specified personal risk factors, not elsewhere classified; Translations: [Other specified personal history presenting hazards to health] Episodic Thyroid disorders (20 sources) 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; Translations: [Other specified hypothyroidism] Onset: 10-05-2015 Chronic Past or Other Problems Problem Classification Problem Date Documented Date Episodic/Chronic Cardiac dysrhythmias (20 sources) Tachycardia; Translations: [Tachycardia, unspecified] Onset: 06-18-2015 06-18-2015 Episodic Menstrual disorders (3 sources) Irregular periods; Translations: [Irregular menstruation, unspecified] Onset: 08-01-2005 Resolved: 02-26-2012 02-26-2012 Chronic Noninfectious gastroenteritis (3 sources) Chronic diarrhea; Translations: [Noninfective gastroenteritis and colitis, unspecified] Onset: 12-24-2019 Resolved: 04-22-2020 04-22-2020 Episodic Nonspecific chest pain (4 sources) Chest pain; Translations: [Chest pain, unspecified] Onset: 03-23-2024 03-13-2024 Episodic Pancreatic disorders (not diabetes) (3 sources) Cyst of pancreas; Translations: [Cyst of pancreas] Onset: 07-19-2012 Resolved: 06-18-2015 06-18-2015 Episodic Sprains and strains (3 sources) Injury of lower extremity; Translations: [Sprain and strain of unspecified site of knee and leg] Onset: 10-17-2006 Resolved: 03-16-2014 03-16-2014 Episodic Unclassified (2 sources) Patient encounter status 05-27-2024 Viral infection (3 sources) Herpes labialis; Translations: [Herpesviral vesicular dermatitis] Onset: 04-17-2010 Resolved: 06-18-2015 06-18-2015 Episodic Results Test Name Value Interpretation Reference Range Facility Anion gap in Serum or Plasma Ordered By: Keith Heart on 10-07-2024 Anion gap [Moles/Vol] 11 mmol/L 5-15 [facility] BUN/creatinine ratioOrdered By: Keith Heart on 10-07-2024 Urea nitrogen/Creatinine [Mass ratio] 18.4 mg/mg 10-20 [facility] Bilirubin, totalOrdered By: Keith Heart on 10-07-2024 Bilirubin [Mass/Vol] 0.39 mg/dL 0.00-1.30 [facility] Calculated very low density lipoprotein (VLDL) cholesterol measurementOrdered By: Keith Heart on 10-07-2024 Calculated very low density lipoprotein (VLDL) cholesterol measurement 66 mg/dL High 5-40 [facility] Carbon dioxide, total [Moles /volume] in Central venous bloodOrdered By: Keith Heart on 10-07-2024 CO2 [Moles/Vol] 24.4 mmol/L 21.0-32.0 [facility] Chloride assayOrdered By: [facility] on 10-07-2024 Chloride [Moles/Vol] 102 mmol/L 98-108 [facility] Comprehensive Metabolic Prof ilon 10-07-2024 Albumin [Mass/Vol] 3.9 g/dL Normal 3.4-4.8 [facility] Comment on above: Order Comment: CC: Candace HEART Performed By: #### L 100.0500, L509.1000, L501.0900, L506.1000, L500.3600 #### [facility] [address] [place], [address] Albumin/Globulin [Mass ratio] 1.3 {ratio} Normal 0.9-2.4 [facility] Comment on above: Order Comment: CC: Candace HEART Performed By: #### L 100.0500, L509.1000, L501.0900, L506.1000, L500.3600 #### [facility] [address] [facility] [place] [place], [address] ALK PHOS 81 U/L Normal 35-104 [facility] Comment on above: Order Comment: CC: Candace HEART Performed By: #### L 100.0500, L509.1000, L501.0900, L506.1000, L500.3600 #### [facility] [address] [place], [address] ALT [Catalytic activity/Vol] 19 U/L Normal <=34 [facility] Comment on above: Order Comment: CC: Candace HEART Performed By: #### L 100.0500, L509.1000, L501.0900, L506.1000, L500.3600 #### [facility] [address] [place], [address] AST [Catalytic activity/Vol] 22 U/L Normal <=31 [facility] Comment on above: Order Comment: CC: Candace HEART Performed By: #### L 100.0500, L509.1000, L501.0900, L506.1000, L500.3600 #### [facility] [address] [place], [address] Bilirubin [Mass/Vol] 0.39 mg/dL Normal 0.00-1.30 [facility] Comment on above: Order Comment: CC: Candace HEART Performed By: #### L 100.0500, L509.1000, L501.0900, L506.1000, [id number] #### [facility] [address] [place], [address] BUN/CRE 18.4 RATIO Normal 10-20 [facility] Comment on above: Order Comment: CC: Candace HEART Performed By: #### L 100.0500, L509.1000, L501.0900, L506.1000, L500.3600 #### [facility] [facility] [address] [place], [address] Calcium [Mass/Vol] 9.4 mg/dL Normal 7.6-11.0 [facility] Comment on above: Order Comment: CC: Candace HEART Performed By: #### L 100.0500, L509.1000, L501.0900, L506.1000, L500.3600 #### [facility] [address] [place], [address] Chloride [Moles/Vol] 102 mmol/L Normal 98-108 [facility] Comment on above: Order Comment: CC: Candace HEART Performed By: #### L 100.0500, L509.1000, L501.0900, L506.1000, L500.3600 #### [facility] [address] [place], [address] CO2 [Moles/Vol] 24.4 mmol/L Normal 21.0-32.0 [facility] Comment on above: Order Comment: CC: Candace HEART Performed By: #### L 100.0500, L509.1000, L501.0900, L506.1000, L500.3600 #### [facility] [address] [place], [address] Creatinine [Mass/Vol] 1.75 mg/dL High 0.70-1.20 [facility] Comment on above: Order Comment: CC: Candace HEART Performed By: #### L 100.0500, L509.1000, L501.0900, L506.1000, L500.3600 #### [facility] [address] [place], [address] GAP 11 Normal 5-15 [facility] Comment on above: Order Comment: CC: Candace HEART Performed By: #### L 100.0500, L509.1000, L501.0900, L506.1000, L500.3600 #### [facility] [address] [place], [address] GFR/1.73 sq M.predicted among non-blacks MDRD (S/P/Bld) [Vol rate/Area] 32 mL/min/{1.73_m2} Low >60 [facility] Comment on above: Order Comment: CC: Candace HEART Result Comment: mL/m in/1.73m2 CKD-EPI Creatinine Equation (2020) Performed By: #### L 100.0500, L509.1000, L501.0900, L506.1000, L500.3600 #### [facility] [address] [place], [address] Globulin (S) [Mass/Vol] 3.0 g/dL Normal 2.2-4.2 [facility] Comment on above: Order Comment: CC: Candace HEART Performed By: #### L 100.0500, L509.1000, L501.0900, L506.1000, L500.3600 #### [facility] [address] [place], [address] Glucose [Mass/Vol] 184 mg/dL High 70-99 [facility] Comment on above: Order Comment: CC: Candace HEART Performed By: #### L 100.0500, L509.1000, L501.0900, L506.1000, L500.3600 #### [facility] [address] [place], [address] Potassium [Moles/Vol] 4.8 mmol/L Normal 3.3-5.1 [facility] Comment on above: Order Comment: CC: Candace HEART Performed By: #### L 100.0500, L509.1000, L501.0900, L506.1000, L500.3600 #### [facility] [address] [place], [address] Sodium [Moles/Vol] 137 mmol/L Normal 133-145 [facility] Comment on above: Order Comment: CC: Candace HEART Performed By: #### L 100.0500, L509.1000, L501.0900, L506.1000, L500.3600 #### [facility] [address] [place], [address] T PROT 6.9 g/dL Normal 5.9-8.4 [facility] Comment on above: Order Comment: CC: Candace HEART Performed By: #### L 100.0500, L509.1000, L501.0900, L506.1000, L500.3600 #### [facility] [address] [place], [address] Urea nitrogen [Mass/Vol] 32 mg/dL High 4-19 [facility] Comment on above: Order Comment: CC: Candace HEART Performed By: #### L 100.0500, L509.1000, L501.0900, L506.1000, L500.3600 #### [facility] [address] [place], [address] Glomerular filtration rate ( GFR) estimation/1.73 sq m using serum, plasma, or whole bOrdered By: Keith Heart on 10-07-2024 GFR/1.73 sq M.predicted among non-blacks MDRD (S/P/Bld) [Vol rate/Area] 32 mL/min/{1.73_m2} Low >60 [facility] Comment on above: mL/min/1.73m2 CKD-EP I Creatinine Equation (2020) LDL calc ser/plasOrdered By: Keith Heart on 10-07-2024 Cholesterol in LDL [Mass/Vol] 100 mg/dL [facility] Comment on above: Lxmfqtmapb=260-134 m g/dL & Higher Indi=658 mg/dL or greater Laboratory - Chemistry and C hemistry - challengeOrdered By: Keith Heart on 10-07-2024 AST [Catalytic activity/Vol] 22 U/L <32 [facility] Lipid Profileon 10-07-2024 CHOL:HDL 5.01 Normal [facility] Comment on above: Order Comment: CC: Candace HEART Performed By: #### L 100.0500, L509.1000, L501.0900, L506.1000, L500.3600 #### [facility] [address] [place], [address] Cholesterol [Mass/Vol] 208 mg/dL High <=200 [facility] Comment on above: Order Comment: CC: T Tena HEART Result Comment: Chol esterol level, Desirable <200 mg/dL Borderline high cholesterol 200-239 mg/dL High cholesterol >=240 mg/dL Recommendations of the NCEP Adult Treatment Panel for the following risk-cutoff thresholds for the [place] population. Performed By: #### L 100.0500, L509.1000, L501.0900, L506.1000, L500.3600 #### [facility] [address] [place], [address] Cholesterol in HDL [Mass/Vol] 42 mg/dL Normal [facility] Comment on above: Order Comment: CC: T Tena HEART Result Comment: Narcisa onal Cholesterol Education Program (NCEP) guidelines: <40 mg/dL: Low HDL-cholesterol (major risk factor for CHD) >= 60 mg/dL: High HDL-cholesterol (negative risk factor for CHD) HDL-cholesterol is affected by a number of factors, e.g. smoking, exercise, hormones, sex and age. Performed By: #### L 100.0500, L509.1000, L501.0900, L506.1000, L500.3600 #### [facility] [address] [place], [address] Cholesterol in LDL [Mass/Vol] 100 mg/dL Normal [facility] Comment on above: Order Comment: CC: T Tena HEART Result Comment: Bord yuufda=438-840 mg/dL Higher Cjfj=339 mg/dL or greater Performed By: #### L 100.0500, L509.1000, L501.0900, L506.1000, L500.3600 #### [facility] [address] [place], [address] Cholesterol in VLDL [Mass/Vol] 66 mg/dL High 5-40 [facility] Comment on above: Order Comment: CC: T Tena HEART Performed By: #### L 100.0500, L509.1000, L501.0900, L506.1000, L500.3600 #### [facility] [address] [place], [address] Triglyceride [Mass/Vol] 331 mg/dL High [facility] Comment on above: Order Comment: CC: Candace HEART Result Comment: The drugs N-Acetylcysteine and Metamizole may falsely depress this assay. Normal range: <150 mg/dL Borderline High: 150-199 mg/dL High: 200-499 mg/dL Very High: >500 mg/dL Performed By: #### L 100.0500, L509.1000, L501.0900, L506.1000, L500.3600 #### [facility] [address] [place], [address] Potassium measurement (mass/ volume)Ordered By: Keith Heatr on 10-07-2024 Potassium (Unsp spec) [Mass/Vol] 4.8 mmol/L 3.3-5.1 [facility] Screening total cholesterol/ high density lipoprotein (HDL) cholesterol ratioOrdered By: Keith Heart on 10-07-2024 Cholesterol.total/Devi sterol in HDL [Mass ratio] 5.01 {ratio} [facility] Serum creatinine measurement (mass/volume)Ordered By: Keith Heart on 10-07-2024 Creatinine [Mass/Vol] 1.75 mg/dL High 0.70-1.20 [facility] Serum globulin measurementOr dered By: Keith Heart on 10-07-2024 Globulin (S) [Mass/Vol] 3.0 g/dL 2.2-4.2 [facility] Serum glucose measurement (m ass/volume)Ordered By: Keith Heart on 10-07-2024 Glucose [Mass/Vol] 184 mg/dL High 70-99 [facility] Serum or plasma alanine gann otransferase (ALT) measurementOrdered By: Keith Heart on 10-07-2024 ALT [Catalytic activity/Vol] 19 U/L <35 [facility] Serum or plasma albumin rashad urement (mass/volume)Ordered By: Keith Heart on 10-07-2024 Albumin [Mass/Vol] 3.9 g/dL 3.4-4.8 [facility] Serum or plasma albumin/glob ulin mass ratioOrdered By: Keith Heart on 10-07-2024 Albumin/Globulin [Mass ratio] 1.3 {ratio} 0.9-2.4 [facility] Serum or plasma alkaline cathi sphatase measurementOrdered By: Keith Heart on 10-07-2024 ALP [Catalytic activity/Vol] 81 U/L 35-104 [facility] Serum or plasma calcium rashad urement (mass/volume)Ordered By: Keith Heart on 10-07-2024 Calcium [Mass/Vol] 9.4 mg/dL 7.6-11.0 [facility] Serum or plasma cholesterol in HDL measurement (mass/volume)Ordered By: Keith Heart on 10-07-2024 Cholesterol in HDL [Mass/Vol] 42 mg/dL >40 [facility] Comment on above: National Cholesterol Education Program (NCEP) guidelines:<40 mg/dL: Low HDL-cholesterol (major risk factor for CHD)>= 60 mg/dL: High HDL-cholesterol (negative risk factor for CHD)HDL-cholesterol is affected by a number of factors, e.g. smoking, exercise, hormones, sex and age. Serum or plasma cholesterol measurement (mass/volume)Ordered By: Keith Heart on 10-07-2024 Cholesterol [Mass/Vol] 208 mg/dL High <201 [facility] Comment on above: Cholesterol level, D esirable <200 mg/dLBorderline high cholesterol 200-239 mg/dLHigh cholesterol >=240 mg/dLRecommendations of the NCEP Adult Treatment Panel for the following risk-cutoff thresholds for the [place] population. Serum or plasma urea nitroge n measurement (mass/volume)Ordered By: Keith Heart on 10-07-2024 Urea nitrogen [Mass/Vol] 32 mg/dL High 4-19 [facility] Sodium levelOrdered By: Bety Heart on 10-07-2024 Sodium [Moles/Vol] 137 mmol/L 133-145 [facility] Total proteinOrdered By: Mini Heart on 10-07-2024 Protein [Mass/Vol] 6.9 g/dL 5.9-8.4 [facility] Triglycerides measurementOrd ered By: Keith Heart on 10-07-2024 Triglyceride [Mass/Vol] 331 mg/dL High <199 [facility] Comment on above: The drugs N-Acetylcy steine and Metamizole may falsely depress this assay. Normal range: <150 mg/dLBorderline High: 150-199 mg/dLHigh: 200-499 mg/dLVery High: >500 mg/dL Vitamin D,25 Hydroxyon 10-07 Vitamin D 25-OH 28.4 ng/mL Low 30-100 [facility] Comment on above: Order Comment: CC: T O DR. HEART Result Comment: Jamila min D Status Deficiency: <20 ng/mL (50nmol/L) Insufficiency: 20-30 ng/mL (50-75 nmol/L) Sufficiency: 30-100 ng/mL (75-250 nmol/L) Toxicity: >100 ng/mL (>250 nmol/L) Performed By: #### L 100.0500, L509.1000, L501.0900, L506.1000, L500.3600 #### [facility] [address] [place], [address] Head/Neck Soft Tissueon Head/Neck Soft Tissue [facility] Imaging Services [address] [place] [address] Head/Neck Soft Tissue MR#: [id number] Acct: [id number] Name: GEORGIE LEWIS Rep #: [id number] : 1955 F 68 From: Hernandez Masterson PCP: Dr. Keith Heart MD Status: REG CLI Study: Head/Neck Soft Tissue Date of Exam: 09/08/24 Exam# [id number] Ordering Dr: Keith Heart MD PROCEDURE: HEAD/NECK SOFT TISSUE 09/08/2024 REASON FOR EXAM: LOCALIZED SWELLING, MASS AND LUMP, NECK TECHNIQUE: Targeted soft tissue ultrasound of the right neck under the jaw COMPARISON: None US/Head/Neck Soft Tissue IMPRESSION: Probable lymph node within the region of interest at the right upper neck measuring 1.2 x 0.5 x 0.4 cm. Reading Location: [facility] CC: Dr. Keith Heart MD Knot Picker Cloth: Signed Normal [facility] Anion gap in Serum or Plasma on 07-29-2024 Anion gap [Moles/Vol] 12 mmol/L 5-15 [facility] BUN/creatinine ratioon 07-29 Urea nitrogen/Creatinine [Mass ratio] 24.0 mg/mg High 10-20 [facility] CBC-Complete Blood Cnt No Di ffon 07-29-2024 Erythrocyte distribution width (RBC) [Ratio] 14.1 % Normal 11.6-14.6 [facility] Comment on above: Performed By: #### L 100.0500, L509.1000, L501.0900, L506.1000, L500.3600 #### [facility] [address] [place], [address] Hematocrit (Bld) [Volume fraction] 42.1 % Normal 37-47 [facility] Comment on above: Performed By: #### L 100.0500, L509.1000, L501.0900, L506.1000, L500.3600 #### [facility] [address] [place], [address] Hemoglobin (Bld) [Mass/Vol] 13.4 g/dL Normal 12.0-15.0 [facility] Comment on above: Performed By: #### L 100.0500, L509.1000, L501.0900, L506.1000, L500.3600 #### [facility] [address] [place], [address] MCH (RBC) [Entitic mass] 27.7 pg Normal 27.0-32.0 [facility] Comment on above: Performed By: #### L 100.0500, L509.1000, L501.0900, L506.1000, L500.3600 #### [facility] [address] [place], [address] MCHC (RBC) [Mass/Vol] 31.8 g/dL Low 32-36 [facility] Comment on above: Performed By: #### L 100.0500, L509.1000, L501.0900, L506.1000, L500.3600 #### [facility] [address] [place], [address] MCV (RBC) [Entitic vol] 87.2 fL Normal 81-99 [facility] Comment on above: Performed By: #### L 100.0500, L509.1000, L501.0900, L506.1000, L500.3600 #### [facility] [address] [place], [address] Platelet mean volume (Bld) [Entitic vol] 11.6 fL Normal 6.2-12.0 [facility] Comment on above: Performed By: #### L 100.0500, L509.1000, L501.0900, L506.1000, L500.3600 #### [facility] [address] [place], [address] Platelets (Bld) [#/Vol] 188 10*3/uL Normal 150-450 [facility] Comment on above: Performed By: #### L 100.0500, L509.1000, L501.0900, L506.1000, L500.3600 #### [facility] [address] [place], [address] RBC (Bld) [#/Vol] 4.83 10*6/uL Normal 4.2-5.4 [facility] Comment on above: Performed By: #### L 100.0500, L509.1000, L501.0900, L506.1000, L500.3600 #### [facility] [address] [place], [address] RDW SD 45.3 fl High 35.1-43.9 [facility] Comment on above: Performed By: #### L 100.0500, L509.1000, L501.0900, L506.1000, L500.3600 #### [facility] [address] [place], [address] WBC (Bld) [#/Vol] 6.3 10*3/uL Normal 4.4-11.0 [facility] Comment on above: Performed By: #### L 100.0500, L509.1000, L501.0900, L506.1000, L500.3600 #### [facility] [address] [place], [address] Carbon dioxide, total [Moles /volume] in Central venous bloodon 07-29-2024 CO2 [Moles/Vol] 23.5 mmol/L 21.0-32.0 [facility] Chloride assayon 07-29-2024 Chloride [Moles/Vol] 101 mmol/L 98-108 [facility] Erythrocyte distribution wid th ratioon 07-29-2024 Erythrocyte distribution width (RBC) [Ratio] 14.1 % 11.6-14.6 [facility] Erythrocyte distribution wid th standard deviationon 07-29-2024 Erythrocyte distribution width (RBC) [Ratio] 45.3 fl High 35.1-43.9 [facility] Glomerular filtration rate ( GFR) estimation/1.73 sq m using serum, plasma, or whole bon 07-29-2024 GFR/1.73 sq M.predicted among non-blacks MDRD (S/P/Bld) [Vol rate/Area] 32 mL/min/{1.73_m2} Low >60 [facility] Comment on above: mL/min/1.73m2 CKD-EP I Creatinine Equation (2020) Hematocrit Auto (Bld) [Volum e fraction]on 07-29-2024 Hematocrit (Bld) [Volume fraction] 42.1 % 37-47 [facility] Hemoglobin measurementon Hemoglobin (Bld) [Mass/Vol] 13.4 g/dL 12.0-15.0 [facility] MCV (mean corpuscular volume ) determinationon 07-29-2024 MCV (RBC) [Entitic vol] 87.2 fL 81-99 [facility] Mean corpuscular hemoglobin (MCH) determinationon 07-29-2024 MCH (RBC) [Entitic mass] 27.7 pg 27.0-32.0 [facility] Mean corpuscular hemoglobin concentration (MCHC) determinationon 07-29-2024 MCHC (RBC) [Mass/Vol] 31.8 g/dL Low 32-36 [facility] Mean platelet volume determi nationon 07-29-2024 Platelet mean volume (Bld) [Entitic vol] 11.6 fL 6.2-12.0 [facility] PTHINon 07-29-2024 PTH 69 pg/mL High 11-61 [facility] Comment on above: Performed By: #### L 100.0500, L509.1000, L501.0900, L506.1000, L500.3600 #### [facility] [address] [place], [address] Platelet counton 07-29-2024 Platelets (Bld) [#/Vol] 188 10*3/uL 150-450 [facility] Potassium measurement (mass/ volume)on 07-29-2024 Potassium (Unsp spec) [Mass/Vol] 4.9 mmol/L 3.3-5.1 [facility] Protein+Creatinine Ratio,Uri neon 07-29-2024 PROT:CRE RATIO 59 mg/g CRE Normal 0-200 [facility] Comment on above: Performed By: #### L 100.0500, L509.1000, L501.0900, L506.1000, L500.3600 #### [facility] [address] [place], [address] PROTEIN,UR.RAN. < 6.0 Normal 0.0-12.0 [facility] Comment on above: Performed By: #### L 100.0500, L509.1000, L501.0900, L506.1000, L500.3600 #### [facility] [address] [place], [address] UR CREAT 63.60 mg/dL Normal 28.00-217.00 [facility] Comment on above: Performed By: #### L 100.0500, L509.1000, L501.0900, L506.1000, L500.3600 #### [facility] [address] [place], [address] RBC Auto (Bld) [#/Vol]on RBC (Bld) [#/Vol] 4.83 10*6/uL 4.2-5.4 [facility] Random urine creatinine rashad urement (mass/volume)on 07-29-2024 Creatinine Unsp time (U) [Mass/Vol] 63.60 mg/dL 28.00-217.00 [facility] Renal Profileon 07-29-2024 Albumin [Mass/Vol] 4.0 g/dL Normal 3.4-4.8 [facility] Comment on above: Performed By: #### L 100.0500, L509.1000, L501.0900, L506.1000, L500.3600 #### [facility] [address] [place], [address] BUN/CRE 24.0 RATIO High 10-20 [facility] Comment on above: Performed By: #### L 100.0500, L509.1000, L501.0900, L506.1000, L500.3600 #### [facility] [address] [place], [address] Calcium [Mass/Vol] 9.4 mg/dL Normal 7.6-11.0 [facility] Comment on above: Performed By: #### L 100.0500, L509.1000, L501.0900, L506.1000, L500.3600 #### [facility] [address] [place], [address] Chloride [Moles/Vol] 101 mmol/L Normal 98-108 [facility] Comment on above: Performed By: #### L 100.0500, L509.1000, L501.0900, L506.1000, L500.3600 #### [facility] [address] [place], [address] CO2 [Moles/Vol] 23.5 mmol/L Normal 21.0-32.0 [facility] Comment on above: Performed By: #### L 100.0500, L509.1000, L501.0900, L506.1000, L500.3600 #### [facility] [address] [place], [address] Creatinine [Mass/Vol] 1.74 mg/dL High 0.70-1.20 [facility] Comment on above: Performed By: #### L 100.0500, L509.1000, L501.0900, L506.1000, L500.3600 #### [facility] [address] [place], [address] GAP 12 Normal 5-15 [facility] Comment on above: Performed By: #### L 100.0500, L509.1000, L501.0900, L506.1000, L500.3600 #### [facility] [address] [place], [address] GFR/1.73 sq M.predicted among non-blacks MDRD (S/P/Bld) [Vol rate/Area] 32 mL/min/{1.73_m2} Low >60 [facility] Comment on above: Result Comment: mL/m in/1.73m2 CKD-EPI Creatinine Equation (2020) Performed By: #### L 100.0500, L509.1000, L501.0900, L506.1000, L500.3600 #### [facility] [address] [place], [address] Glucose [Mass/Vol] 206 mg/dL High 70-99 [facility] Comment on above: Performed By: #### L 100.0500, L509.1000, L501.0900, L506.1000, L500.3600 #### [facility] [address] [place], [address] Phosphate [Mass/Vol] 3.7 mg/dL Normal 2.7-4.5 [facility] Comment on above: Performed By: #### L 100.0500, L509.1000, L501.0900, L506.1000, L500.3600 #### [facility] [address] [place], [address] Potassium [Moles/Vol] 4.9 mmol/L Normal 3.3-5.1 [facility] Comment on above: Performed By: #### L 100.0500, L509.1000, L501.0900, L506.1000, L500.3600 #### [facility] [address] [place], [address] Sodium [Moles/Vol] 136 mmol/L Normal 133-145 [facility] Comment on above: Performed By: #### L 100.0500, L509.1000, L501.0900, L506.1000, L500.3600 #### [facility] [address] [place], [address] Urea nitrogen [Mass/Vol] 42 mg/dL High 4-19 [facility] Comment on above: Performed By: #### L 100.0500, L509.1000, L501.0900, L506.1000, L500.3600 #### [facility] [address] [place], [address] Serum creatinine measurement (mass/volume)on 07-29-2024 Creatinine [Mass/Vol] 1.74 mg/dL High 0.70-1.20 [facility] Serum glucose measurement (m ass/volume)on 07-29-2024 Glucose [Mass/Vol] 206 mg/dL High 70-99 [facility] Serum or plasma albumin rashad urement (mass/volume)on 07-29-2024 Albumin [Mass/Vol] 4.0 g/dL 3.4-4.8 [facility] Serum or plasma calcium rashad urement (mass/volume)on 07-29-2024 Calcium [Mass/Vol] 9.4 mg/dL 7.6-11.0 [facility] Serum or plasma urea nitroge n measurement (mass/volume)on 07-29-2024 Urea nitrogen [Mass/Vol] 42 mg/dL High 4-19 [facility] Sodium levelon 07-29-2024 Sodium [Moles/Vol] 136 mmol/L 133-145 [facility] Urine protein measurement (m ass/volume)on 07-29-2024 Protein (U) [Mass/Vol] mg/dL 0.0-12.0 [facility] Urine protein/creatinine mas s ratioon 07-29-2024 Protein/Creatinine (U) [Mass ratio] 59 mg/g CRE 0-200 [facility] Vitamin D,25 Hydroxyon 07-29 Vitamin D 25-OH 26.5 ng/mL Low 30-100 [facility] Comment on above: Result Comment: Jamila min D Status Deficiency: <20 ng/mL (50nmol/L) Insufficiency: 20-30 ng/mL (50-75 nmol/L) Sufficiency: 30-100 ng/mL (75-250 nmol/L) Toxicity: >100 ng/mL (>250 nmol/L) Performed By: #### L 100.0500, L509.1000, L501.0900, L506.1000, L500.3600 #### [facility] [address] [place], [address] White blood cell (WBC) count on 07-29-2024 WBC (Bld) [#/Vol] 6.3 10*3/uL 4.4-11.0 [facility] DBT Breast - bilateral scree josen 05-27-2024 IMPRESSION: There is no mammographic evidence of malignancy in either breast. Routine screening mammogram is recommended. Annual mammogram will be due in 1 year. BI-RADS Category 1: Negative RISK: Based on the Tyrer-Cuzick (TC) risk assessment model, this patient has a 8.8% lifetime risk of developing breast cancer, meaning they are at average risk for developing breast cancer. However, this is only an estimate based on available history provided on the patient's questionnaire. We encourage all patients to talk with their providers about these results, further recommendations for managing breast health, and appropriate supplemental screening options if the patient has dense breast tissue. Interpreting Radiologist: Macie Chisholm M.D. Electronically signed on: 05/27/2024 Knot Picker Cloth: FUNMILAYO Transcribe Date/Time: May 27 2024 9:13A Dictated by: MACIE CHISHOLM MD This examination was interpreted and the report reviewed and electronically signed by: MACIE CHISHOLM MD on May 27 2024 10:01AM [facility] DIVISION OF RADIOLOGY * * *Final Report* * * DATE OF EXAM: May 27 2024 9:43AM [facility] - [facility] SCREENING W TREV / PROCEDURE REASON: multiple diagnoses * * * * Physician Interpretation * * * * RESULT: [place] [address] #[id number] - [facility] SCREENING W TREV HISTORY: 68 year-old patient seen for screening and is asymptomatic in both breasts. Patient states no personal history of breast cancer. Patient states no personal history of ovarian cancer. COMPARISON STUDIES: The present examination has been compared to prior imaging studies dated 03/24/2020 (mammogram), 04/20/2021 (mammogram), 04/27/2022 (mammogram), 05/21/2023 (mammogram) and 05/29/2023 (ultrasound). MAMMOGRAM TECHNIQUE: The study was acquired using full field digital technology and interpreted from soft copy. Digital Breast Tomosynthesis (DBT) images were obtained and used to assist in the interpretation of this examination. MAMMOGRAM FINDINGS: There are scattered areas of fibroglandular density. No suspicious masses, calcifications or other abnormalities are seen in either breast. There are no significant interval changes. DIVISION OF RADIOLOGY Provider, [facility] [place] - 05/27/2024 * * *Final Report* * * DATE OF EXAM: May 27 2024 9:43AM WRW [id number] - IAM SCREENING W TREV / PROCEDURE REASON: multiple diagnoses * * * * Physician Interpretation * * * * RESULT: [address] [address] [place] [address] #[id number] - IAM SCREENING W TREV HISTORY: 68 year-old patient seen for screening and is asymptomatic in both breasts. Patient states no personal history of breast cancer. Patient states no personal history of ovarian cancer. COMPARISON STUDIES: The present examination has been compared to prior imaging studies dated 03/24/2020 (mammogram), 04/20/2021 (mammogram), 04/27/2022 (mammogram), 05/21/2023 (mammogram) and 05/29/2023 (ultrasound). MAMMOGRAM TECHNIQUE: The study was acquired using full field digital technology and interpreted from soft copy. Digital Breast Tomosynthesis (DBT) images were obtained and used to assist in the interpretation of this examination. MAMMOGRAM FINDINGS: There are scattered areas of fibroglandular density. No suspicious masses, calcifications or other abnormalities are seen in either breast. There are no significant interval changes. IMPRESSION IMPRESSION: There is no mammographic evidence of malignancy in either breast. Routine screening mammogram is recommended. Annual mammogram will be due in 1 year. BI-RADS Category 1: Negative RISK: Based on the Tyrer-Cuzick (TC) risk assessment model, this patient has a 8.8% lifetime risk of developing breast cancer, meaning they are at average risk for developing breast cancer. However, this is only an estimate based on available history provided on the patient's questionnaire. We encourage all patients to talk with their providers about these results, further recommendations for managing breast health, and appropriate supplemental screening options if the patient has dense breast tissue. Interpreting Radiologist: Macie Chisholm M.D. Electronically signed on: 05/27/2024 Knot Picker Cloth: FUNMILAYO Transcribe Date/Time: May 27 2024 9:13A Dictated by: MACIE CHISHOLM MD This examination was interpreted and the report reviewed and electronically signed by: MACIE CHISHOLM MD on May 27 2024 10:01AM EST [facility] Radiology Study observation (narrative) [facility] DBT Breast - bilateral scree ningOrdered By: [facility] Provider on 05-27-2024 [facility] IAM SCREENING W TOMOon 05-27 IAM SCREENING W TREV * * *Final Report* * * DATE OF EXAM: May 27 2024 9:43AM WRW 0582 - IAM SCREENING W TREV / PROCEDURE REASON: multiple diagnoses * * * * Physician Interpretation * * * * RESULT: [facility] [address] [place] [address] #[id number] - IAM SCREENING W TREV HISTORY: 68 year-old patient seen for screening and is asymptomatic in both breasts. Patient states no personal history of breast cancer. Patient states no personal history of ovarian cancer. COMPARISON STUDIES: The present examination has been compared to prior imaging studies dated 03/24/2020 (mammogram), 04/20/2021 (mammogram), 04/27/2022 (mammogram), 05/21/2023 (mammogram) and 05/29/2023 (ultrasound). MAMMOGRAM TECHNIQUE: The study was acquired using full field digital technology and interpreted from soft copy. Digital Breast Tomosynthesis (DBT) images were obtained and used to assist in the interpretation of this examination. MAMMOGRAM FINDINGS: There are scattered areas of fibroglandular density. No suspicious masses, calcifications or other abnormalities are seen in either breast. There are no significant interval changes. IMPRESSION: There is no mammographic evidence of malignancy in either breast. Routine screening mammogram is recommended. Annual mammogram will be due in 1 year. BI-RADS Category 1: Negative RISK: Based on the Tyrer-Cuzick (TC) risk assessment model, this patient has a 8.8% lifetime risk of developing breast cancer, meaning they are at average risk for developing breast cancer. However, this is only an estimate based on available history provided on the patient's questionnaire. We encourage all patients to talk with their providers about these results, further recommendations for managing breast health, and appropriate supplemental screening options if the patient has dense breast tissue. Interpreting Radiologist: Macie Chisholm M.D. Electronically signed on: 05/27/2024 Knot Picker Cloth: FUNMILAYO Transcribe Date/Time: May 27 2024 9:13A Dictated by: MACIE CHISHOLM MD This examination was interpreted and the report reviewed and electronically signed by: MACIE CHISHOLM MD on May 27 2024 10:01AM EST [id number] CN Normal [facility] Hemoglobin A1con 04-28-2024 HbA1c (Bld) [Mass fraction] 7.4 % High 3.8-5.6 [facility] Comment on above: Order Comment: CC: Candace [facility]ART Result Comment: Norm al < 5.7 % Prediabetic 5.7 - 6.4 % Diabetic >or= 6.5 % Please note range changes. Performed By: #### L 100.0500, L509.1000, L501.0900, L506.1000, L500.3600 #### [facility] [address] [place], [address] PTHINon 04-28-2024 PTH 119.7 pg/mL High 18.4-80.1 [facility] Comment on above: Order Comment: CC: Candace HEART Performed By: #### L 100.0500, L509.1000, L501.0900, L506.1000, L500.3600 #### [facility] [address] [place], [address] Thyroid Stim Hormone (TSH)on 04-28-2024 TSH 1.650 uIU/mL Normal 0.358-3.740 [facility] Comment on above: Order Comment: CC: Candace [facility] Performed By: #### L 100.0500, L509.1000, L501.0900, L506.1000, L500.3600 #### [facility] [address] [place], [address] Vitamin D,25 Hydroxyon 04-28 Vitamin D 25-OH 39.0 ng/mL Normal [facility] Comment on above: Order Comment: CC: Candace [facility] Result Comment: Jamila min D 25(OH) Status Range Deficiency <20 ng/mL (50nmol/L) Insufficiency 20 - 30 ng/mL (50 - 75 nmol/L) Sufficiency 30 - 100 ng/mL (75 - 250 nmol/L) Toxicity >100 ng/mL (>250 nmol/L) Performed By: #### L 100.0500, L509.1000, L501.0900, L506.1000, L500.3600 #### [facility] [address] [place], [address] Basic Metabolic Profile (BMP )on 03-23-2024 BUN/CRE 14.5 RATIO Normal 10-20 [facility] Comment on above: Order Comment: CC: Candace HE[facility] Performed By: #### L 100.0500, L509.1000, L501.0900, L506.1000, L500.3600 #### [facility] [address] [place], [address] CA,Total 10.1 mg/dL Normal 8.5-10.1 [facility] Comment on above: Order Comment: CC: Candace HE[facility] Performed By: #### L 100.0500, L509.1000, L501.0900, L506.1000, L500.3600 #### [facility] [address] [place], [address] Chloride [Moles/Vol] 101 mmol/L Normal 98-107 [facility] Comment on above: Order Comment: CC: Candace HEART Performed By: #### L 100.0500, L509.1000, L501.0900, L506.1000, L500.3600 #### [facility] [address] [place], [address] CO2 [Moles/Vol] 26.0 mmol/L Normal 21.0-32.0 [facility] Comment on above: Order Comment: CC: Candace HE[facility] Performed By: #### L 100.0500, L509.1000, L501.0900, L506.1000, L500.3600 #### [facility] [address] [place], [address] Creatinine [Mass/Vol] 1.66 mg/dL High 0.55-1.02 [facility] Comment on above: Order Comment: CC: T Tena HEART Result Comment: The validity of the calculated GFR GFRAA in patients over 70 years has not been determined. Clinical correlation is essential. Performed By: #### L 100.0500, L509.1000, L501.0900, L506.1000, L500.3600 #### [facility] [address] [place], [address] EST GFR - AA 40 mL/min Low >60 [facility] Comment on above: Order Comment: CC: [facility] Result Comment: Afri can Russian GFR Calc Performed By: #### L 100.0500, L509.1000, L501.0900, L506.1000, L500.3600 #### [facility] [address] [place], [address] GAP 8 Normal 5-15 [facility] Comment on above: Order Comment: CC: Candace HE[facility] Performed By: #### L 100.0500, L509.1000, L501.0900, L506.1000, L500.3600 #### [facility] [address] [place], [address] GFR/1.73 sq M.predicted among non-blacks MDRD (S/P/Bld) [Vol rate/Area] 33 mL/min/{1.73_m2} Low >60 [facility] Comment on above: Order Comment: CC: [facility] Result Comment: Non- GFR Calc Performed By: #### L 100.0500, L509.1000, L501.0900, L506.1000, L500.3600 #### [facility] [address] [place], [address] Glucose [Mass/Vol] 197 mg/dL High 74-106 [facility] Comment on above: Order Comment: CC: Candace HE[facility] Result Comment: Fast ing Glucose result greater than or equal to 126 mg/dL suggests DIABETES MELLITUS per A.D.A. criteria. Performed By: #### L 100.0500, L509.1000, L501.0900, L506.1000, L500.3600 #### [facility] [address] [place], [address] Potassium [Moles/Vol] 4.3 mmol/L Normal 3.5-5.1 [facility] Comment on above: Order Comment: CC: Candace HE[facility] Performed By: #### L 100.0500, L509.1000, L501.0900, L506.1000, L500.3600 #### [facility] [address] [place], [address] Sodium [Moles/Vol] 135 mmol/L Low 136-145 [facility] Comment on above: Order Comment: CC: Candace HE[facility] Performed By: #### L 100.0500, L509.1000, L501.0900, L506.1000, L500.3600 #### [facility] [address] [place], [address] Urea nitrogen [Mass/Vol] 24 mg/dL High 7-18 [facility] Comment on above: Order Comment: CC: Candace [facility] Performed By: #### L 100.0500, L509.1000, L501.0900, L506.1000, L500.3600 #### [facility] [address] [place], [address] Cardiology Visit Reporton Cardiology Visit Report [facility] [address] [place] [address] OFFICE VISIT Date of Service: 03/13/24 MR#: [id number] Acct: [id number] Name: GEORGIE LEWIS Rep #: [id number] : 1955 Provider: Dr. Wilmer peck MD Age/Sex: 68/F Location: [facility] [place] Status: Signed HPI HPI History of Present Illness Details: Patient comes in today is a very pleasant 68-year-old white female with her for a new patient visit. The patient that she was seen in the emergency department February 24, 2024. Her EKG did not show any ischemic changes when she came in complaining of a burning type chest discomfort her troponins were negative at 6 and 7 respectively. She had an EKG that showed a UT interval of 200 ms was which was right on the borderline. This was read as normal sinus rhythm and low voltage QRS and otherwise was unremarkable. The patient does have a strong family history of coronary disease she is has a history of hypertension hyperlipidemia on therapy diabetes mellitus on aggressive therapy she has never smoked. Her blood pressure is well-controlled in the office today at 122/77 her lipids are well-controlled as of January 2023 with a LDL of 66 HDL of 39 total of 168 and triglycerides of 313. The patient is fairly active in her home environment she is able to walk a treadmill although she is not routinely doing it now and she has has purchased a stationary bike that she wants to get started working out on. The patient's primary concern is her chronic kidney disease her GFR runs in the 30???35 range and she is followed by nephrology. The patient also had an event monitor February 11, 2024 which showed 5 atrial tachycardic episodes she had 6 episodes of multiple PVCs consistent with short runs of VT the longest was 6 beats. She had an ectopic atrial run but the total PVC burden was only 1.7% PAC burden only 0.1%. The patient had an echocardiogram done 02/25/2024 her LV was normal in size and function with a EF of 65% and she had structurally normal valves. The patient denies any syncope or near syncope she denies any lower extremity edema she denies any recurrence of the chest discomfort. She feels this was related to a combination of aspirin and vitamin C therapy when she stopped that her symptoms completely resolved. Intake Vital Signs 02/24/24 08:24 03/13/24 10:49 Height 5 ft 4 in 5 ft 4 in Weight: 248 lb BMI 42.5 BP 122/77 H Blood Pressure Location Lt brachial Position Sitting Respiration 18 Pulse 79 Pulse Source Monitor Pulse Oximetry (%) 97 Oxygen Delivery Method room air Intake Visit Reasons: First Degree AV Block (Una) Excelsior Picker Required: No Accompanied by: Is patient in pain?: No Allergies adhesive tape Allergy (Verified 03/13/24 10:49) Rash atorvastatin Allergy (Verified 03/13/24 10:49) Other levofloxacin (From Levaquin) Adverse Reaction (Verified 03/13/24 10:49) Other Medications ???Medication ???Instructions ???Recorded ???Confirmed ???Type allopurinol 300 mg tablet 150 mg PO DAILY 02/24/24 03/13/24 History dapagliflozin propanediol 5 mg 5 mg PO DAILY 02/24/24 03/13/24 History tablet (Farxiga) ergocalciferol (vitamin D2) 1,250 1,250 mcg PO QWEEK 02/24/24 03/13/24 History mcg (50,000 unit) capsule glimepiride 4 mg tablet 4 mg PO BID 02/24/24 03/13/24 History levothyroxine 75 mcg tablet 75 mcg PO DAILY 02/24/24 03/13/24 History (Synthroid) lisinopril 20 mg tablet 20 mg PO DAILY 02/24/24 03/13/24 History pioglitazone 15 mg tablet 15 mg PO DAILY 02/24/24 03/13/24 History semaglutide 2 mg/dose (8 mg/3 mL) 2 mg subcut QWEEK 02/24/24 03/13/24 History subcutaneous pen injector (Ozempic) bisoprolol 2.5 tab PO BID 03/09/24 03/13/24 History mg-hydrochlorothiazi de 6.25 mg tablet aspirin 81 mg tablet,delayed 81 mg PO QDAY 03/13/24 03/13/24 History release (Adult Aspirin Regimen) pravastatin 40 mg tablet 40 mg PO QDAY 03/13/24 03/13/24 History valacyclovir 1 gram tablet 1,000 mg PO BID PRN 03/13/24 03/13/24 History Ejection fraction %: 65 Have you fallen in the past year?: [facility] History Chest pain Chronic kidney disease (CKD) Left elbow fracture First degree AV block Gout Hypothyroidism Hypercholesteremia Hypertension Type 2 diabetes mellitus Family History Mother Hypertension Diabetes Thyroid disorder Father Kidney disease Heart disease Social History Smoking Status: Never smoker alcohol intake: never substance use type: does not use caffeine: No ROS Const Const: Negative for fatigue or weakness ENT ENT: N (more content not included)... Normal [facility] Echo Completeon 02-25-2024 Echo Complete [facility] [address] [place] [address] Echo Complete 02/25/24 0908 MR#: [id number] Acct: [id number] Name: GEORGIE LEWIS Rep #: [id number] : 1955 68 From: Jose De Jesus Brizuela MD Attending Dr: Dr. Keith Heart MD Status: KENYETTA MCGARRY Ordering Dr: Keith Heart MD Date: 02/25/24 Location: [facility] Sex: F C Admitted: Reason For Study: 1ST DEGREE AV BLOCK Procedure This was a 2D Doppler, Color Flow transthoracic echocardiogram. Patient did not feel comfortable with Definity due to decreased kidney function. Exam performed in department. Left Ventricle Normal LV size. Left ventricular systolic function is normal. The estimated ejection fraction is 65 %. No regional wall motion abnormalities noted. Right Ventricle Normal RV size. Normal systolic function. Atria Normal left atrium. Normal right atrium. Mitral Valve Normal mitral valve. Tricuspid Valve Normal tricuspid valve. Aortic Valve Trisinus/trileaflet aortic valve. Pulmonic Valve Normal pulmonic valve. Great Vessels Normal aortic root. The pulmonary artery is normal size. Inferior vena cava collapse with respiration. Pericardium/Pleural No pericardial effusion. MMode/2D Measurements Calculations LVIDd: 5.0 cm IVSd: 0.92 cm LVOT diam: 2.1 cm LVIDs: 3.0 cm LVPWd: 1.0 cm LVOT area: 3.4 cm2 RVDd: 3.2 cm FS: 40.1 % _ asc Aorta Diam: 3.2 cm LAV(MOD-bp): 33.3 ml LVAd ap4: 18.0 cm2 LAV(MOD-bp) Indexed: 15.8 ml/m2 LVLd ap4: 6.7 cm LAV(MOD-sp2): 37.0 ml EDV(MOD-sp4): 39.6 ml LAV(MOD-sp4): 30.2 ml EDV(sp4-el): 41.0 ml LVAs ap4: 10.1 cm2 LVLs ap4: 5.9 cm ESV(MOD-sp4): 14.5 ml ESV(sp4-el): 14.5 ml EF(MOD-sp4): 63.3 % EF(sp4-el): 64.6 % _ LVAd ap2: 18.5 cm2 SV(MOD-sp4): 25.1 ml SV(MOD-sp2): 25.3 ml LVLd ap2: 6.4 cm SI(MOD-sp4): 11.9 ml/m2 SI(MOD-sp2): 12.1 ml/m2 EDV(MOD-sp2): 43.2 ml EDV(sp2-el): 45.3 ml LVAs ap2: 10.7 cm2 LVLs ap2: 5.4 cm ESV(MOD-sp2): 17.9 ml ESV(sp2-el): 17.9 ml EF(MOD-sp2): 58.7 % _ SV(sp4-el): 26.5 ml Ao sinus diam: 3.[address] Junction: 2.7 cm _ LA dimension(2D): 3.5 cm LA A4 area: 13.9 cm2 RA A4 area: 12.0 cm2 _ TAPSE: 1.9 cm Time Measurements MV dec time: 0.18 sec Doppler Measurements Calculations MV E max sara: 94.4 cm/sec Lat Peak E' Sara: 9.8 cm/sec Med Peak E' Sara: 8.2 cm/sec MV A max sara: 90.3 cm/sec E/E' lat: 9.7 E/E' med: 11.5 MV E/A: 1.0 _ MV dec slope: 532.7 cm/sec2 Ao V2 max: 121.6 cm/sec LV V1 max: 93.3 cm/sec Ao max P.9 mmHg LV V1 max P.5 mmHg Ao V2 mean: 89.7 cm/sec LV V1 mean P.8 mmHg Ao mean P.5 mmHg LV V1 mean: 63.1 cm/sec Ao V2 VTI: 26.9 cm LV V1 VTI: 22.0 cm AV (velocity ratio): 0.82 ORLIN(I,D): 2.8 cm2 ORLIN(V,D): 2.6 cm2 _ SV(LVOT): 74.3 ml PA V2 max: 87.1 cm/sec ECHO/Echo Complete Interpretation Summary Normal LV size. Left ventricular systolic function is normal. The estimated ejection fraction is 65 %. Structurally normal valves. Ordering Physician: Keith Heart Referring Physician: Keith Heart Performed By: Martina Ruvalcaba CARINA 02/25/24 1603 Date Jose De Jesus Brizuela MD CC: Dr. Keith Heart MD Date Dictated: 02/25/24 0908 Date Transcribed: 02/25/24 160 Knot Picker Cloth: Signed Normal [facility] 12 Lead EKGon 02-24-2024 12 Lead EKG [facility] Cardi[facility] Services [address] [place] [address] 12 Lead EKG 02/24/24 0832 MR#: [id number] Acct: [id number] Name: GEORGIE LEWIS Rep #: [id number] : 1955 68 From: Jose De Jesus Brizuela MD Attending Dr: Status: DEP ER Ordering Dr: Good Cates DO Date: 02/24/24 Location: ED Sex: F C Admitted: Test Reason : CP Blood Pressure : */* mmHG Vent. Rate : 65 BPM Atrial Rate : 65 BPM P-R Int : 200 ms QRS Dur : 86 ms QT Int : 382 ms P-R-T Axes : 67 -15 4 degrees QTcB Int : 397 ms Normal sinus rhythm Low voltage QRS Borderline ECG Confirmed by JOSE DE JESUS BRIZUELA MD ([id number]), editorial specialist JULIUS WEN ([id number]) on 02/25/2024 1:50:04 PM Referred By: STAN Confirmed By: JOSE DE JESUS BRIZUELA MD 02/25/24 1350 Date Jose De Jesus Brizuela MD CC: Dr. Keith Heart MD; Dr. Good Cates DO Signed Normal [facility] Basic Metabolic Profile (BMP )on 02-24-2024 BUN/CRE 17.1 RATIO Normal 10-20 [facility] Comment on above: Order Comment: 1 Y Performed By: #### L 501.2450, L500.3400, L500.2500, L501.5425 #### [facility] [address] [place], [address] CA,Total 10.1 mg/dL Normal 8.5-10.1 [facility] Comment on above: Order Comment: 1 Y Performed By: #### L 501.2450, L500.3400, L500.2500, L501.5425 #### [facility] [address] [place], [address] Chloride [Moles/Vol] 100 mmol/L Normal 98-107 [facility] Comment on above: Order Comment: 1 Y Performed By: #### L 501.2450, L500.3400, L500.2500, L501.5425 #### [facility] [address] [place], [address] CO2 [Moles/Vol] 29.0 mmol/L Normal 21.0-32.0 [facility] Comment on above: Order Comment: 1 Y Performed By: #### L 501.2450, L500.3400, L500.2500, L501.5425 #### [facility] [address] [place], [address] Creatinine [Mass/Vol] 1.81 mg/dL High 0.55-1.02 [facility] Comment on above: Order Comment: 1 Y Result Comment: The validity of the calculated GFR GFRAA in patients over 70 years has not been determined. Clinical correlation is essential. Performed By: #### L 501.2450, L500.3400, L500.2500, L501.5425 #### [facility] [address] [place], [address] ECRCL 37.60 ml/min Normal [facility] Comment on above: Order Comment: 1 Y Performed By: #### L 501.2450, L500.3400, L500.2500, L501.5425 #### [facility] [address] [place], [address] EST GFR - AA 36 mL/min Low >60 [facility] Comment on above: Order Comment: 1 Y Result Comment: Afri can Russian GFR Calc Performed By: #### L 501.2450, L500.3400, L500.2500, L501.5425 #### [facility] [address] [place], [address] GAP 7 Normal 5-15 [facility] Comment on above: Order Comment: 1 Y Performed By: #### L 501.2450, L500.3400, L500.2500, L501.5425 #### [facility] [address] [place], [address] GFR/1.73 sq M.predicted among non-blacks MDRD (S/P/Bld) [Vol rate/Area] 30 mL/min/{1.73_m2} Low >60 [facility] Comment on above: Order Comment: 1 Y Result Comment: Non- GFR Calc Performed By: #### L 501.2450, L500.3400, L500.2500, L501.5425 #### [facility] [address] [place], [address] Glucose [Mass/Vol] 192 mg/dL High 74-106 [facility] Comment on above: Order Comment: 1 Y Result Comment: Fast ing Glucose result greater than or equal to 126 mg/dL suggests DIABETES MELLITUS per A.D.A. criteria. Performed By: #### L 501.2450, L500.3400, L500.2500, L501.5425 #### [facility] [address] [place], [address] Potassium [Moles/Vol] 4.2 mmol/L Normal 3.5-5.1 [facility] Comment on above: Order Comment: 1 Y Performed By: #### L 501.2450, L500.3400, L500.2500, L501.5425 #### [facility] [address] [place], [address] Sodium [Moles/Vol] 136 mmol/L Normal 136-145 [facility] Comment on above: Order Comment: 1 Y Performed By: #### L 501.2450, L500.3400, L500.2500, L501.5425 #### [facility] [address] [place], [address] Urea nitrogen [Mass/Vol] 31 mg/dL High 7-18 [facility] Comment on above: Order Comment: 1 Y Performed By: #### L 501.2450, L500.3400, L500.2500, L501.5425 #### [facility] [address] [place], [address] CBC W/Diff, Automatedon 11- Absolute Lymph 1.51 X10 3/uL Normal 0.83-4.51 [facility] Comment on above: Performed By: #### L 100.0500, L509.1000, L501.0900, L506.1000, L500.3600 #### [facility] [address] [place], [address] Absolute Neut 3.7 X10 3/uL Normal 2.0-7.7 [facility] Comment on above: Performed By: #### L 100.0500, L509.1000, L501.0900, L506.1000, L500.3600 #### [facility] [address] [place], [address] Basophils/100 WBC (Bld) 0.3 % Normal 0-1 [facility] Comment on above: Performed By: #### L 100.0500, L509.1000, L501.0900, L506.1000, L500.3600 #### [facility] [address] [place], [address] Eosinophils/100 WBC (Bld) 2.1 % Normal 0-5 [facility] Comment on above: Performed By: #### L 100.0500, L509.1000, L501.0900, L506.1000, L500.3600 #### [facility] [address] [place], [address] Erythrocyte distribution width (RBC) [Ratio] 14.4 % Normal 11.6-14.6 [facility] Comment on above: Performed By: #### L 100.0500, L509.1000, L501.0900, L506.1000, L500.3600 #### [facility] [address] [place], [address] Hematocrit (Bld) [Volume fraction] 40.1 % Normal 37-47 [facility] Comment on above: Performed By: #### L 100.0500, L509.1000, L501.0900, L506.1000, L500.3600 #### [facility] [address] [place], [address] Hemoglobin (Bld) [Mass/Vol] 12.7 g/dL Normal 12.0-15.0 [facility] Comment on above: Performed By: #### L 100.0500, L509.1000, L501.0900, L506.1000, L500.3600 #### [facility] [address] [place], [address] IG% 0.500 Normal 0.0-0.9 [facility] Comment on above: Result Comment: IG% - Immature Granulocytes (promyelocytes, myelocytes and metamyelocytes) > 1% indicates that a LEFT SHIFT is Present. Performed By: #### L 100.0500, L509.1000, L501.0900, L506.1000, L500.3600 #### [facility] [address] [place], [address] Lymphocytes/100 WBC (Bld) 26.1 % Normal 19-41 [facility] Comment on above: Performed By: #### L 100.0500, L509.1000, L501.0900, L506.1000, L500.3600 #### [facility] [address] [place], [address] MCH (RBC) [Entitic mass] 27.6 pg Normal 27.0-32.0 [facility] Comment on above: Performed By: #### L 100.0500, L509.1000, L501.0900, L506.1000, L500.3600 #### [facility] [address] [place], [address] MCHC (RBC) [Mass/Vol] 31.7 g/dL Low 32-36 [facility] Comment on above: Performed By: #### L 100.0500, L509.1000, L501.0900, L506.1000, L500.3600 #### [facility] [address] [place], [address] MCV (RBC) [Entitic vol] 87.2 fL Normal 81-99 [facility] Comment on above: Performed By: #### L 100.0500, L509.1000, L501.0900, L506.1000, L500.3600 #### [facility] [address] [place], [address] Monocytes/100 WBC (Bld) 7.3 % Normal 0-10 [facility] Comment on above: Performed By: #### L 100.0500, L509.1000, L501.0900, L506.1000, L500.3600 #### [facility] [address] [place], [address] Neutrophils/100 WBC (Bld) 63.7 % Normal 47-70 [facility] Comment on above: Performed By: #### L 100.0500, L509.1000, L501.0900, L506.1000, L500.3600 #### [facility] [address] [place], [address] Nucleated RBC (Bld) [#/Vol] 0 10*3/uL Normal 0-5 [facility] Comment on above: Performed By: #### L 100.0500, L509.1000, L501.0900, L506.1000, L500.3600 #### [facility] [address] [place], [address] Platelet mean volume (Bld) [Entitic vol] 10.9 fL Normal 6.2-12.0 [facility] Comment on above: Performed By: #### L 100.0500, L509.1000, L501.0900, L506.1000, L500.3600 #### [facility] [address] [place], [address] Platelets (Bld) [#/Vol] 170 10*3/uL Normal 150-450 [facility] Comment on above: Performed By: #### L 100.0500, L509.1000, L501.0900, L506.1000, L500.3600 #### [facility] [address] [place], [address] RBC (Bld) [#/Vol] 4.60 10*6/uL Normal 4.2-5.4 [facility] Comment on above: Performed By: #### L 100.0500, L509.1000, L501.0900, L506.1000, L500.3600 #### [facility] [address] [place], [address] RDW SD 45.7 fl High 35.1-43.9 [facility] Comment on above: Performed By: #### L 100.0500, L509.1000, L501.0900, L506.1000, L500.3600 #### [facility] [address] [place], [address] WBC (Bld) [#/Vol] 5.8 10*3/uL Normal 4.4-11.0 [facility] Comment on above: Performed By: #### L 100.0500, L509.1000, L501.0900, L506.1000, L500.3600 #### [facility] [address] [place], [address] Chest 1 View (Portable)on Chest 1 View (Portable) [facility] Imaging Services [address] [place] [address] Chest 1 View (Portable) MR#: [id number] Acct: [id number] Name: GEORGIE LEWIS Rep #: [id number] : 1955 F 68 From: Gage fonseca MD PCP: Dr. Keith Heart MD Status: PRE ER Study: Chest 1 View (Portable) Date of Exam: 02/24/24 Exam# [id number] Ordering Dr: Good Cates DO [id number] STUDY: X-RAY CHEST REASON FOR EXAM: Female, 68 years old. Chest pain TECHNIQUE: Single AP portable view of the chest. COMPARISON: None. FINDINGS: EKG electrodes are seen. The lungs are clear and expanded. There is no demonstrated pleural abnormality. Normal size heart. Normal mediastinum and [place]. Normal visualized pulmonary arteries. There is atherosclerotic tortuosity of the aortic arch and descending thoracic aorta. There are diffuse degenerative changes of the visualized thoracic spine. Normal visualized ribs, clavicles, and shoulders. There is no demonstrated abnormality of the visualized soft tissue structures of the upper abdomen. RAD/Chest 1 View (Portable) IMPRESSION: Normal x-ray examination of the chest. Electronically Signed: Gage Londono MD at 9:18 EST Reading Location ID and State: [facility] / [place] , Service support , CC: Dr. Keith Heart MD; Dr. Good Cates DO Knot Picker Cloth: Signed Normal [facility] Emergency Department Summary on 02-24-2024 Emergency Department Summary [facility] Medical Records Department [address] [facility] [place] [address] Emergency Department Summary 02/24/24 MR#: [id number] Acct: [id number] Name: GEORGIE LEWIS Rep #: [id number] : 1955 68 From: Good Cates DO PCP: Dr. Keith Heart MD Status:DEP ER Location: ED HPI History of Present Illness Chief Complaint: Chest Pain Informant: patient and spouse/S.O. Narrative Narrative: 68-year-old female presenting to the emergency room with chest pain. Patient states that recently she has had a discomfort in her chest. She saw primary care today and EKG and has an echocardiogram scheduled for tomorrow. She states that she started taking a baby aspirin and has noticed that her heart rate has come down around 100 bpm to around 70. She states that she has developed a warm burning-like sensation midsternally that gets better with about 3 times. It does seem worse after eating. It does not radiate. This morning she did not feel well and perhaps like she might get sick. She states that after discussion she decided to come to emergency. She has a history of diabetes and hypertension. She is on Ozempic. She did not eat yet this morning as she took her Synthroid at 0730 hrs. [facility] Medical History (Updated 02/24/24 @ 11:[address] Good Cates DO) Gout Hypothyroidism Hypercholesteremia Hypertension Type 2 diabetes mellitus Home Medications ???Medication ???Instructions ???Recorded ???Last Taken ???Type allopurinol 300 mg tablet 150 mg PO DAILY 02/24/24 Unknown History dapagliflozin propanediol 5 mg 5 mg PO DAILY 02/24/24 Unknown History tablet (Farxiga) ergocalciferol (vitamin D2) 1,250 1,250 mcg PO QWEEK 02/24/24 Unknown History mcg (50,000 unit) capsule glimepiride 4 mg tablet 4 mg PO BID 02/24/24 Unknown History levothyroxine 75 mcg tablet 75 mcg PO DAILY 02/24/24 Unknown History (Synthroid) lisinopril 20 mg tablet 20 mg PO DAILY 02/24/24 Unknown History pioglitazone 15 mg tablet 15 mg PO DAILY 02/24/24 Unknown History pravastatin 20 mg tablet 20 mg PO DAILY 02/24/24 Unknown History semaglutide 2 mg/dose (8 mg/3 mL) 2 mg subcut QWEEK 02/24/24 Unknown History subcutaneous pen injector (Ozempic) Allergy/AdvReac Type Severity Reaction Status Date / Time adhesive tape Allergy Rash Verified 02/24/24 08:25 Social History Smoking Status: Never smoker ROS ROS ED Constitutional Constitutional ED: Denies chills, fever(s) or weight loss Eyes Eyes: Denies change in vision or diplopia ENT ENT ED: Denies ear pain, rhinorrhea or sore throat Cardiovascular Cardiovascular: Reports as per HPI and chest pain; Denies orthopnea, palpitations or racing heartbeat Respiratory/Chest Respiratory/Chest: Denies cough, dyspnea or orthopnea Gastrointestinal Gastrointestinal: Denies abdominal pain, diarrhea, nausea or vomiting Genitourinary Genitourinary ED: Denies dysuria, hematuria or urinary frequency Musculoskeletal Musculoskeletal: Denies arthralgias or myalgias Integumentary Denies abscess or rash Neurologic Neurologic: Denies headache(s) or weakness Psychiatric Psychiatric: Denies anxiety, depression, suicidal ideation or suicidal thoughts Endocrine Endocrinology: Denies polydipsia, polyphagia or polyuria Allergic/Immunologic Allergic/Immunologic ED: Denies mouth swelling, tongue swelling or urticaria EXAM Physical Exam Const Vital Signs: 02/24/24 08:24 02/24/24 10:24 Temperature 97.3 F L Temperature Source Temporal Pulse Rate 70 64 Respiratory Rate 16 19 H Blood Pressure 166/72 H 137/64 H Blood Pressure Mean 103 88 Pulse Ox 100 100 Oxygen Delivery Method Room Air Room Air Positive well nourished, well developed and obese General Appearance ED: well developed and NAD Nutritional Appearance: obese HEENT Reports normocephalic, head/scalp atraumatic and moist mucous membranes Eyes PERRL and EOMs intact bilaterally Neck no lymphadenopathy, supple and no JVD Resp normal respiratory effort and clear to auscultation bilaterally Cardio regular rate, regular rhythm and no murmurs GI normal to inspection, nondistended, normoactive bowel sounds and non-tender Palpation: soft Back/Spine no CVA tenderness and normal ROM Extremity normal to inspection General Extremety ED: Negative for edema General Extremity: Negative for edema Neuro oriented x3 and CN's II-XII intact bilaterally Sensorium / Orientation: alert Motor Exam: strength 5/5 throughout Psych mental status grossly normal Mood Affect: Negative for depressed or tearful Skin no rashes or lesions noted and no wounds MDM MDM MDM Narrative Medical decision making narrative: Differential diagnosis includes but not limited (more content not included)... Normal [facility] L501.4020on 02-24-2024 TROPONIN-I HS 7 pg/mL Normal 3.0-54.0 [facility] Comment on above: Result Comment: Benito bailon Note: New Test Units and Gender Specific Reference Ranges. For more information see Policy Stat Procedure [place] High Sensitivity Troponin (TNIH) and attachments. Performed By: #### L 100.0500, L509.1000, L501.0900, L506.1000, L500.3600 #### [facility] [address] [place], [address] L501.5425on 02-24-2024 TROPONIN-I HS 6 pg/mL Normal 3.0-54.0 [facility] Comment on above: Order Comment: CC: T Tena HEART Result Comment: Benito bailon Note: New Test Units and Gender Specific Reference Ranges. For more information see Policy Stat Procedure [place] High Sensitivity Troponin (TNIH) and attachments. Performed By: #### L 100.0500, L509.1000, L501.0900, L506.1000, L500.3600 #### [facility] [address] [place], [address] Lipaseon 02-24-2024 Lipase [Catalytic activity/Vol] 32 U/L Normal 13-75 [facility] Comment on above: Order Comment: 1 Y Result Comment: Benito bailon note: LIPASE revised reference range effective 22. New Lipase methodology. Expected to produce lower values than the previous assay method. NEW Reference Range: 13 - 75 U/L Performed By: #### L 501.2450, L500.3400, L500.2500, L501.5425 #### [facility] [address] [place], [address] Liver Profileon 02-24-2024 Albumin [Mass/Vol] 3.5 g/dL Normal 3.2-5.0 [facility] Comment on above: Order Comment: 1 Y Performed By: #### L 501.2450, L500.3400, L500.2500, L501.5425 #### [facility] [address] [place], [address] ALK P 87 U/L Normal 45-117 [facility] Comment on above: Order Comment: 1 Y Performed By: #### L 501.2450, L500.3400, L500.2500, L501.5425 #### [facility] [address] [place], [address] ALT [Catalytic activity/Vol] 20 U/L Normal 13-56 [facility] Comment on above: Order Comment: 1 Y Performed By: #### L 501.2450, L500.3400, L500.2500, L501.5425 #### [facility] [address] [place], [address] AST [Catalytic activity/Vol] 18 U/L Normal 15-37 [facility] Comment on above: Order Comment: 1 Y Performed By: #### L 501.2450, L500.3400, L500.2500, L501.5425 #### [facility] [address] [place], [address] Bilirubin [Mass/Vol] 0.40 mg/dL Normal 0.20-1.00 [facility] Comment on above: Order Comment: 1 Y Result Comment: For patients on eltrombopag therapy, use of Dimension [place] TBIL is not recommended. Performed By: #### L 501.2450, L500.3400, L500.2500, L501.5425 #### [facility] [address] [place], [address] Bilirubin.direct [Mass/Vol] 0.13 mg/dL Normal 0.00-0.30 [facility] Comment on above: Order Comment: 1 Y Performed By: #### L 501.2450, L500.3400, L500.2500, L501.5425 #### [facility] [address] [place], [address] Globulin (S) [Mass/Vol] 3.6 g/dL Normal 2.2-4.2 [facility] Comment on above: Order Comment: 1 Y Performed By: #### L 501.2450, L500.3400, L500.2500, L501.5425 #### [facility] [address] [place], [address] T PROT 7.1 g/dL Normal 6.4-8.2 [facility] Comment on above: Order Comment: 1 Y Performed By: #### L 501.2450, L500.3400, L500.2500, L501.5425 #### [facility] [address] [place], [address] CBC-Complete Blood Cnt No Di ffon 01-28-2024 Erythrocyte distribution width (RBC) [Ratio] 14.9 % High 11.6-14.6 [facility] Comment on above: Order Comment: CC: [facility] Performed By: #### L 100.0500, L509.1000, L501.0900, L506.1000, L500.3600 #### [facility] [address] [place], [address] Hematocrit (Bld) [Volume fraction] 40.6 % Normal 37-47 [facility] Comment on above: Order Comment: CC: [facility] Performed By: #### L 100.0500, L509.1000, L501.0900, L506.1000, L500.3600 #### [facility] [address] [place], [address] Hemoglobin (Bld) [Mass/Vol] 12.7 g/dL Normal 12.0-15.0 [facility] Comment on above: Order Comment: CC: [facility] Performed By: #### L 100.0500, L509.1000, L501.0900, L506.1000, L500.3600 #### [facility] [address] [place], [address] MCH (RBC) [Entitic mass] 27.8 pg Normal 27.0-32.0 [facility] Comment on above: Order Comment: CC: [facility] Performed By: #### L 100.0500, L509.1000, L501.0900, L506.1000, L500.3600 #### [facility] [address] [place], [address] MCHC (RBC) [Mass/Vol] 31.3 g/dL Low 32-36 [facility] Comment on above: Order Comment: CC: Candace HE[facility] Performed By: #### L 100.0500, L509.1000, L501.0900, L506.1000, L500.3600 #### [facility] [address] [place], [address] MCV (RBC) [Entitic vol] 88.8 fL Normal 81-99 [facility] Comment on above: Order Comment: CC: Candace HE[facility] Performed By: #### L 100.0500, L509.1000, L501.0900, L506.1000, L500.3600 #### [facility] [address] [place], [address] Platelet mean volume (Bld) [Entitic vol] 11.4 fL Normal 6.2-12.0 [facility] Comment on above: Order Comment: CC: [facility] Performed By: #### L 100.0500, L509.1000, L501.0900, L506.1000, L500.3600 #### [facility] [address] [place], [address] Platelets (Bld) [#/Vol] 180 10*3/uL Normal 150-450 [facility] Comment on above: Order Comment: CC: [facility] Performed By: #### L 100.0500, L509.1000, L501.0900, L506.1000, L500.3600 #### [facility] [address] [place], [address] RBC (Bld) [#/Vol] 4.57 10*6/uL Normal 4.2-5.4 [facility] Comment on above: Order Comment: CC: Candace HE[facility] Performed By: #### L 100.0500, L509.1000, L501.0900, L506.1000, L500.3600 #### [facility] [address] [place], [address] RDW SD 47.9 fl High 35.1-43.9 [facility] Comment on above: Order Comment: CC: [facility] Performed By: #### L 100.0500, L509.1000, L501.0900, L506.1000, L500.3600 #### [facility] [address] [place], [address] WBC (Bld) [#/Vol] 5.9 10*3/uL Normal 4.4-11.0 [facility] Comment on above: Order Comment: CC: [facility] Performed By: #### L 100.0500, L509.1000, L501.0900, L506.1000, L500.3600 #### [facility] [address] [place], [address] PTHINon 01-28-2024 PTH 66.4 pg/mL Normal 18.4-80.1 [facility] Comment on above: Order Comment: CC: [facility] Performed By: #### L 100.0500, L509.1000, L501.0900, L506.1000, L500.3600 #### [facility] [address] [place], [address] Protein+Creatinine Ratio,Uri neon 01-28-2024 PROT:CRE RATIO 133 mg/g CRE Normal 0-200 [facility] Comment on above: Performed By: #### L 100.0500, L509.1000, L501.0900, L506.1000, L500.3600 #### [facility] [address] [place], [address] Protein (U) [Mass/Vol] 6.5 mg/dL Normal <11.9 [facility] Comment on above: Performed By: #### L 100.0500, L509.1000, L501.0900, L506.1000, L500.3600 #### [facility] [address] [place], [address] UR CREAT 48.80 mg/dL Normal NO RANGE EST. [facility] Comment on above: Performed By: #### L 100.0500, L509.1000, L501.0900, L506.1000, L500.3600 #### [facility] [address] [place], [address] Renal Profileon 01-28-2024 Albumin [Mass/Vol] 3.7 g/dL Normal 3.2-5.0 [facility] Comment on above: Order Comment: CC: [facility] Performed By: #### L 100.0500, L509.1000, L501.0900, L506.1000, L500.3600 #### [facility] [address] [place], [address] BUN/CRE 21.0 RATIO High 10-20 [facility] Comment on above: Order Comment: CC: [facility] Performed By: #### L 100.0500, L509.1000, L501.0900, L506.1000, L500.3600 #### [facility] [address] [place], [address] CA,Total 9.7 mg/dL Normal 8.5-10.1 [facility] Comment on above: Order Comment: CC: T O DR. UNA Performed By: #### L 100.0500, L509.1000, L501.0900, L506.1000, L500.3600 #### [facility] [address] [place], [address] Chloride [Moles/Vol] 101 mmol/L Normal 98-107 [facility] Comment on above: Order Comment: CC: Candace EHART Performed By: #### L 100.0500, L509.1000, L501.0900, L506.1000, L500.3600 #### [facility] [address] [place], [address] CO2 [Moles/Vol] 30.0 mmol/L Normal 21.0-32.0 [facility] Comment on above: Order Comment: CC: [facility] HE[facility] Performed By: #### L 100.0500, L509.1000, L501.0900, L506.1000, L500.3600 #### [facility] [address] [place], [address] Creatinine [Mass/Vol] 1.67 mg/dL High 0.55-1.02 [facility] Comment on above: Order Comment: CC: [facility] Result Comment: The validity of the calculated GFR GFRAA in patients over 70 years has not been determined. Clinical correlation is essential. Performed By: #### L 100.0500, L509.1000, L501.0900, L506.1000, L500.3600 #### [facility] [address] [place], [address] EST GFR - AA 40 mL/min Low >60 [facility] Comment on above: Order Comment: CC: [facility] Result Comment: Afri can Russian GFR Calc Performed By: #### L 100.0500, L509.1000, L501.0900, L506.1000, L500.3600 #### [facility] [address] [place], [address] GFR/1.73 sq M.predicted among non-blacks MDRD (S/P/Bld) [Vol rate/Area] 33 mL/min/{1.73_m2} Low >60 [facility] Comment on above: Order Comment: CC: [facility] Result Comment: Non- GFR Calc Performed By: #### L 100.0500, L509.1000, L501.0900, L506.1000, L500.3600 #### [facility] [address] [place], [address] Glucose [Mass/Vol] 161 mg/dL High 74-106 [facility] Comment on above: Order Comment: CC: [facility] Result Comment: Fast ing Glucose result greater than or equal to 126 mg/dL suggests DIABETES MELLITUS per A.D.A. criteria. Performed By: #### L 100.0500, L509.1000, L501.0900, L506.1000, L500.3600 #### [facility] [address] [place], [address] Phosphate [Mass/Vol] 3.0 mg/dL Normal 2.5-4.9 [facility] Comment on above: Order Comment: CC: [facility] HE[facility] Performed By: #### L 100.0500, L509.1000, L501.0900, L506.1000, L500.3600 #### [facility] [address] [place], [address] Potassium [Moles/Vol] 4.7 mmol/L Normal 3.5-5.1 [facility] Comment on above: Order Comment: CC: [facility] Performed By: #### L 100.0500, L509.1000, L501.0900, L506.1000, L500.3600 #### [facility] [address] [place], [address] Sodium [Moles/Vol] 136 mmol/L Normal 136-145 [facility] Comment on above: Order Comment: CC: T O DR. HEART Performed By: #### L 100.0500, L509.1000, L501.0900, L506.1000, L500.3600 #### [facility] [address] [place], [address] Urea nitrogen [Mass/Vol] 35 mg/dL High 7-18 [facility] Comment on above: Order Comment: CC: T O DR. HEART Performed By: #### L 100.0500, L509.1000, L501.0900, L506.1000, L500.3600 #### [facility] [address] [place], [address] Vitamin D,25 Hydroxyon 01-27 Vitamin D 25-OH 31.8 ng/mL Normal [facility] Comment on above: Order Comment: CC: T O DR. HEART Result Comment: Jamila min D 25(OH) Status Range Deficiency <20 ng/mL (50nmol/L) Insufficiency 20 - 30 ng/mL (50 - 75 nmol/L) Sufficiency 30 - 100 ng/mL (75 - 250 nmol/L) Toxicity >100 ng/mL (>250 nmol/L) Performed By: #### L 100.0500, L509.1000, L501.0900, L506.1000, L500.3600 #### [facility] [address] [place], [address] PT D/C Summary (1)on 024 PT D/C Summary (1) [facility] [place] [address] [facility] [address] [place] [address] / REHABILITATION SERVICES DISCHARGE SUMMARY MR#: [id number] Acct: [id number] Name: GEORGIE LWEIS Rep #: [id number] : 1955 68 From: Norman Nelson PT, Cert. T, OCS Referring Dr.: Dr. Keith Heart MD Status: REG RCR Insurance: MEDICARE PART A B [facility] Discharge Summary D/C summary: It has been my pleasure to treat GEORGIE LEWIS referred by Keith Heart MD, with the diagnosis of FRACTURE OF HEAD RADIAL HEAD for a total of 7 visit(s). Discharge Date: Please see the following information for a summary of their discharge status. 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 Goal 2:: Patient to improve elbow ROM flexion and extension by 5 degrees to improve function Goal 3:: Patient to improve survey associate strength by by 5-10 # to improve ADLS and housework tasks Goal 4:: Patient to improve quick dash by 5 points to improve QOL Goal 5:: Patient to demonstrate 50% improvement with less pain and improved function Plan Plan: D/C D/C Information d/c sentence: If there are questions or concerns regarding this patient's physical therapy, please feel free to call me at [phone]. Thank you for the referral of this patient. Sincerely, Norman Nelson PT, Cert MDT, OCS Balance/Gait/Functio nal tests Balance/Special Test Scores Quick DASH Score: 4.5450 Improvement % Improvement: 90 01/10/24 0955 CC: Dr. Keith Heart MD EDWARD Signed Normal [facility] Inital Evaluation (1) - PTon 12-13-2023 Inital Evaluation (1) - PT [facility] Physical Therapy Health[address] [place] [address] / REHABILITATION SERVICES INITIAL EVALUATION MR#: [id number] Acct: [id number] Name: GEORGIE LEWIS Rep #: [id number] : 1955 68 From: Norman Nelson PT, Cert. MD [place], OCS Referring Dr.: Dr. Keith Heart MD Status: REG RCR Insurance: MEDICARE PART A B [facility] Patient's Visit Information Visit Information Visit Information: GEORGIE LWEIS is a 68 year old F referred to Physical Therapy by Keith Heart MD with a diagnosis of FRACTURE OF HEAD RADIAL HEAD. Date of Evaluation: 12/13/23 Physical Therapist: Norman Nelson PT, Cert T, OCS Visit Plan Frequency: 2x /Week Duration: 4 Weeks Plan: RADIAL HEAD FRACTURE JULY 2023 PT INTERVENTIONS PROM/STRETCHING ELBOW ESPECIALLY EXTENSION ,STRENGTHENING EX'S BICEPS/TRICEPS/WRIST AND CP/MHP Subjective Subjective: This 68 y/o female presents to physical therapy with left fracture of radial head fracture due to falling end of July 2023 due to falling. Eventually seen DR 1 week later did x-rays showed radial head fx. Patient referred to [facility] recommended sling 6 weeks no recommendation for surgery or PT. Return to DR Heart c/o stiffness 3 weeks ago. Aggravated factors reaching behind ,grasping lifting something heavy like gallon milk. Alleviating factors heat. Patient denies paresthesia/tingling . Sleeping okay. Patient condition affects QOL and function. 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 to improve survey associate strength by by 5-10 # to improve ADLS and housework tasks Goal Time Frame: 4-6 Weeks Goal 4:: Patient to improve quick dash by 5 points to improve QOL Goal Time Frame: 4-6 Weeks Goal 5:: Patient to demonstrate 50% improvement with less pain and improved function Goal Time Frame: 4-6 Weeks Rehabilitation Potential Physical Therapy Diagnosis: This patient fx radial head in July from falling with pain with decrease ROM elbow and weakness thus benefit from skilled PT P Rehabilitation Potential: Good Anticipated Interventions Patient/Client Instruction: Educate patient on: Condition and Plan of Care For the Purpose of:: To decrease pain, To increase ROM, To improve muscle performance and motor function, To improve ability to perform ADL's, To increase tolerance to activity/condition/p osition, To improve ability of physical actions for home/community/work/ leisure, To improve health of tissue, To decrease soft tissue restriction, To increase flexibility/ROM, To assume or resume ADL's and To improve tolerance to ADL's Therapeutic Exercise to Include: Strength training, Flexibilty training, Passive ROM and Active ROM Comment: ELBOW/WRIST For the Purpose of:: To decrease pain, To increase ROM, To improve muscle performance and motor function, To improve ability to perform ADL's, To increase tolerance to activity/condition/p osition, To improve ability of physical actions for home/community/work/ leisure, To improve health of tissue, To decrease soft tissue restriction, To increase flexibility/ROM and To improve tolerance to ADL's Text: Thank you for the opportunity to evaluate your patient. For Medicare and Medicare HMO plans, please review the plan of care and approve it. It will need to be FAXED BACK to us at [phone] for Medicare purposes. For Medicare only, by signing this I certify the plan of care. Please let me know if there are questions or concerns regarding this plan of care. Physician Signature: D ate: 12/16/23 1054 CC: Dr. Keith Heart MD EDWARD Signed Normal [facility] CNOVon 12-11-2023 CNOV Office Visit (OBGYWM) BARRETTGEORGIE ([id number]) 1955 F Date Time Provider Department 12/11/23 2:20 PM YAZMIN FARLEY OBGYWM During your visit today, we recorded the following information about you: Blood pressure Weight Height 118/74 112 kg 1.619 m Yazmin Farley MD 12/11/2023 3:24 PM Signed Debora is a 68 year old who presents for a pelvic and breast exam Postmenopausal: yes HRT use: No. Last Pap: 09/25/2022 normal HPV: 09/20/2022 negative History of abnormal pap: No Last mammogram: 2023 abnormal, lipomas noted History of abnormal mammogram: No OB History T1 L1 SAB0 IAB0 Ectopic0 Multiple0 Live Births0 Property Condition Assessor History LMP: 07/17/2011, Postmenopausal Age at Menarche: Age at First : Age at Menopause: Property Condition Assessor History Comments: Sexual Activity: Yes; Male Contraception: Vasectomy PAST MEDICAL HISTORY No date: Allergic rhinitis due to other allergen No date: Benign hypertensive heart disease without heart failure No date: Gout 04/17/2010: Herpes labialis 07/23/2012: Hyperlipidemia LDL goal < 100 No date: Hypothyroidism 04/08/2003: Irregular menstrual cycle Comment: disordered proliferative endometrium No date: Lipomas 07/19/2012: Pancreatic cyst 06/18/2015: Type 2 diabetes mellitus with stage 3 chronic kidney disease (HCC)PAST SURGICAL HISTORY 06/02/04: ENDOMETRIAL BX W/WO ENDOCERVIX BX W/O DILAT SPX Comment: disordered endometrium No date: EXC CYST/ABERRANT BREAST TISSUE OPEN 1/> LESION remote: PAST SURGICAL HISTORY OF Comment: sinus surgery 07-02-12: REM LESION TRUNK,ARM,LEG > 4.0CM FAMILY HISTORY Problem Relation Age of Onset Diabetes Father dialysis Hypertension Father Heart Father Hypertension Mother Lipids Mother Diabetes Son Diabetes Sister Diabetes Paternal Aunt Diabetes Paternal Uncle Diabetes Other niece SOCIAL HISTORY Social History Tobacco Use Smoking status: Never Smokeless tobacco: Never Vaping Use Vaping status: Never Used Substance Use Topics Alcohol use: No Drug use: No Allergies and current medication updated:Yes EXAM: BP 118/74 Ht 5' 3.75 (1.62m) Wt 247 lb (112.0kg) LMP 07/17/2011 BMI 42.74 kg/(m2). GENERAL: pleasant, female in no apparent distress HBREAST: soft, non-tender, symmetric, normal nipple-areolar complex, no lymphadenopathy, no nipple discharge, and multiple lipomas, mobile, soft CHEST: Normal inspiratory effort ABDOMEN: soft, non-tender, no hernia, no masses, and lipoma left side noted PELVIC: external genitalia normal, normal Bartholin's glands, urethra, [place]'s glands, no vulvar lesions, no cervical lesions, good vaginal support, physiologic discharge present, normal appearing perineal body and perianal region, limited by habitus, right mons w/ skin cyst BIMANUAL: uterus normal size, shape and consistency, no adnexal masses, non-tender, and limited by habitus RECTOVAGINAL: deferred. ASSESSMENT/PLAN: 1) Health maintenance: Pap/HPV screening no longer needed Mammogram ordered 2) Follow up one year or sooner as needed Yazmin Farley MD Referring Provider: YAZMIN FARLEY [[id number]] Allergies As of Date: 12/11/2023 Noted Allergy Reaction ADHESIVE TAPE (ROSINS) 02/20/2005 LEVAQUIN (LEVOFLOXACIN) 06/09/2019 5 - Intolerance Comments: Mental status changes, hypoglycemia ZOCOR (SIMVASTATIN) 07/23/2012 14 - Other: See Comments Comments: muscle pain Date Reviewed: 12/11/2023 Reviewed by: Yazmin Farley MD - Fully Assessed Reason for Visit: Yearly Exam [187] Primary Visit Diagnosis:Encounter for gynecological examination (general) (routine) without abnormal findings [Z01.419] Other Visit Diagnosis:Encounter for screening mammogram for breast cancer [Z12.31] Order(s):IAM SCREENING W TREV [[id number]] Order #: [id number] FUTURE Prescriptions as of 12/11/2023 - FARXIGA 5 mg tablet Take 1 tablet by mouth once daily. - lisinopril (ZESTRIL) 20 mg tablet Take 1 tablet by mouth once daily. - ergocalciferol 50,000 unit capsule (VITAMIN D2, DRISDOL) Take 1 capsule by mouth one time a week. - ascorbic acid (VITAMIN C ORAL) Take by mouth. - CALCIUM ORAL Take by mouth. - glimepiride (AMARYL) 4 mg tablet Take 1 tablet by mouth twice daily with meals. - bisoprolol-hydroCHLO ROthiazide (ZIAC) 2.5-6.25 mg per tablet Take 1 tablet by mouth twice daily. - semaglutide (OZEMPIC) 2 mg/dose (8 mg/3 mL) pen injector Inject 2 mg subcutaneously one time a week. - pravastatin (PRAVACHOL) 20 mg tablet Take 1 tablet by mouth daily at bedtime. - blood sugar diagnostic (FREESTYLE LITE STRIPS) test strip use 1 TEST STRIP to TEST BLOOD SUGAR twice a day - pioglitazone (ACTOS) 15 mg tablet Take 1 tablet by mouth once daily. - levothyroxine (SYNTHROID) 75 mcg tablet Take 1 tablet by mouth once daily. Take on empty stomach. For Thy (more content not included)... Normal [facility] Basic Metabolic Profile (BMP )on 10-24-2023 BUN/CRE 20.1 RATIO High 10-20 [facility] Comment on above: Performed By: #### L 500.2500 #### [facility] [address] [place], [address] CA,Total 9.5 mg/dL Normal 8.5-10.1 [facility] Comment on above: Performed By: #### L 500.2500 #### [facility] [address] [place], [address] Chloride [Moles/Vol] 100 mmol/L Normal 98-107 [facility] Comment on above: Performed By: #### L 500.2500 #### [facility] [address] [place], [address] CO2 [Moles/Vol] 28.0 mmol/L Normal 21.0-32.0 [facility] Comment on above: Performed By: #### L 500.2500 #### [facility] [address] [place], [address] Creatinine [Mass/Vol] 1.69 mg/dL High 0.55-1.02 [facility] Comment on above: Result Comment: The validity of the calculated GFR GFRAA in patients over 70 years has not been determined. Clinical correlation is essential. Performed By: #### L 500.2500 #### [facility] [address] [place], [address] EST GFR - AA 39 mL/min Low >60 [facility] Comment on above: Result Comment: Afri can Russian GFR Calc Performed By: #### L 500.2500 #### [facility] [address] [place], [address] GAP 7 Normal 5-15 [facility] Comment on above: Performed By: #### L 500.2500 #### [facility] [address] [place], [address] GFR/1.73 sq M.predicted among non-blacks MDRD (S/P/Bld) [Vol rate/Area] 32 mL/min/{1.73_m2} Low >60 [facility] Comment on above: Result Comment: Non- GFR Calc Performed By: #### L 500.2500 #### [facility] [address] [place], [address] Glucose [Mass/Vol] 182 mg/dL High 74-106 [facility] Comment on above: Result Comment: Fast ing Glucose result greater than or equal to 126 mg/dL suggests DIABETES MELLITUS per A.D.A. criteria. Performed By: #### L 500.2500 #### [facility] [address] [place], [address] Potassium [Moles/Vol] 4.6 mmol/L Normal 3.5-5.1 [facility] Comment on above: Performed By: #### L 500.2500 #### [facility] [address] [place], [address] Sodium [Moles/Vol] 135 mmol/L Low 136-145 [facility] Comment on above: Performed By: #### L 500.2500 #### [facility] [address] [place], [address] Urea nitrogen [Mass/Vol] 34 mg/dL High 7-18 [facility] Comment on above: Performed By: #### L 500.2500 #### [facility] [address] [place], [address] Basophil percentageon 2023 Chloride [Moles/Vol] 100 mmol/L 98-107 [facility] Glucose [Mass/Vol] 199 mg/dL 74-106 [facility] Comment on above: Fasting Glucose resu lt greater than or equal to 126 mg/dL suggests DIABETES MELLITUS per A.D.A. criteria. Potassium [Moles/Vol] 4.4 mmol/L 3.5-5.1 [facility] Sodium [Moles/Vol] 136 mmol/L 136-145 [facility] Laboratory - Chemistry and C hemistry - challengeon 07-30-2023 CO2 [Moles/Vol] 30.0 mmol/L 21.0-32.0 [facility] Urea nitrogen/Creatinine [Mass ratio] 16.2 mg/mg 10-20 [facility] No Panel Informationon 07-29 Estimated GFR (MDRD) Amer 40 mL/min >60 [facility] Comment on above: GFR Calc Estimated GFR (MDRD) Non-Af Amer 33 mL/min >60 [facility] Comment on above: Non- GFR Calc Serum or plasma calcium rashad urement (mass/volume)on 07-30-2023 Calcium [Mass/Vol] 9.3 mg/dL 8.5-10.1 [facility] Serum or plasma creatinine m easurement (mass/volume)on 07-30-2023 Creatinine [Mass/Vol] 1.67 mg/dL 0.55-1.02 [facility] Comment on above: The validity of the calculated GFR & GFRAA in patients over 70 years has not been determined. Clinical correlation is essential. Serum or plasma urea nitroge n measurement (mass/volume)on 07-30-2023 Urea nitrogen [Mass/Vol] 27 mg/dL 7-18 [facility] Thin prep Papanicolaou smear with manual screeningon 07-30-2023 Thin prep Papanicolaou smear with manual screening 6 5-15 [facility] Basophil percentageon 2023 Basophil percentage 3.4 mg/dL 2.5-4.9 [facility] Chloride [Moles/Vol] 101 mmol/L 98-107 [facility] Glucose [Mass/Vol] 209 mg/dL 74-106 [facility] Comment on above: Glucose result great er than or equal to 200 mg/dLsuggests DIABETES MELLITUS per A.D.A. criteria. Hemoglobin (Bld) [Mass/Vol] 12.8 g/dL 12.0-15.0 [facility] Potassium [Moles/Vol] 4.6 mmol/L 3.5-5.1 [facility] Sodium [Moles/Vol] 137 mmol/L 136-145 [facility] WBC (Bld) [#/Vol] 6.0 10*3/uL 4.4-11.0 [facility] Determination of erythrocyte mean corpuscular volume (MCV)on 06-25-2023 MCV (RBC) [Entitic vol] 85.9 fL 81-99 [facility] Erythrocyte distribution wid th ratioon 06-25-2023 Erythrocyte distribution width (RBC) [Ratio] 14.0 % 11.6-14.6 [facility] Erythrocyte distribution wid th standard deviationon 06-25-2023 Erythrocyte distribution width (RBC) [Entitic vol] 43.7 fL 35.1-43.9 [facility] Hematocrit Auto (Bld) [Volum e fraction]on 06-25-2023 Hematocrit (Bld) [Volume fraction] 39.6 % 37-47 [facility] Laboratory - Chemistry and C hemistry - challengeon 06-25-2023 CO2 [Moles/Vol] 28.0 mmol/L 21.0-32.0 [facility] Urea nitrogen/Creatinine [Mass ratio] 15.4 mg/mg 10-20 [facility] Laboratory - Hematology and Cell countson 06-25-2023 MCH (RBC) [Entitic mass] 27.8 pg 27.0-32.0 [facility] MCHC (RBC) [Mass/Vol] 32.3 g/dL 32-36 [facility] Platelet mean volume (Bld) [Entitic vol] 10.5 fL 6.2-12.0 [facility] Platelets (Bld) [#/Vol] 206 10*3/uL 150-450 [facility] No Panel Informationon 06-24 Estimated GFR (MDRD) Amer 39 mL/min >60 [facility] Comment on above: GFR Calc Estimated GFR (MDRD) Non-Af Amer 32 mL/min >60 [facility] Comment on above: Non- GFR Calc Parathyroid Hormone (Intact) 109.0 pg/mL 18.4-80.1 [facility] Vitamin D 25-Hydroxy 13.2 ng/mL [facility] Comment on above: Vitamin D 25(OH) Sta tus Range Deficiency <20 ng/mL (50nmol/L) Insufficiency 20 - 30 ng/mL (50 - 75 nmol/L) Sufficiency 30 - 100 ng/mL (75 - 250 nmol/L) Toxicity >100 ng/mL (>250 nmol/L) RBC Auto (Bld) [#/Vol]on RBC (Bld) [#/Vol] 4.61 10*6/uL 4.2-5.4 [facility] Serum or plasma calcium rashad urement (mass/volume)on 06-25-2023 Calcium [Mass/Vol] 9.3 mg/dL 8.5-10.1 [facility] Serum or plasma creatinine m easurement (mass/volume)on 06-25-2023 Creatinine [Mass/Vol] 1.69 mg/dL 0.55-1.02 [facility] Comment on above: The validity of the calculated GFR & GFRAA in patients over 70 years has not been determined. Clinical correlation is essential. Serum or plasma urea nitroge n measurement (mass/volume)on 06-25-2023 Urea nitrogen [Mass/Vol] 26 mg/dL 7-18 [facility] Thin prep Papanicolaou smear with manual screeningon 06-25-2023 Protein (U) [Mass/Vol] 21.1 mg/dL 0.0-11.8 [facility] Thin prep Papanicolaou smear with manual screening 3.3 g/dL 3.2-5.0 [facility] Urine creatinine measurement (mass/volume)on 06-25-2023 Creatinine (U) [Mass/Vol] 146.00 mg/dL NO RANGE EST. [facility] Urine protein/creatinine mas s ratioon 06-25-2023 Protein/Creatinine (U) [Mass ratio] 145 mg/g CRE 0-200 [facility] Whole blood hemoglobin A1c/t otal hemoglobin ratio (mass fraction)Ordered By: Keith Heart on 06-25-2023 HbA1c (Bld) [Mass fraction] 7.9 % 3.8-5.6 [facility] Comment on above: Normal < 5.7 % Predi abetic 5.7 - 6.4 % Diabetic >or= 6.5 % Please note range changes. [employer] LTon 05-29 [facility] * * *Final Report* * * DATE OF EXAM: May 29 2023 12:06PM UDW [id number] - [employer] [facility] / PROCEDURE REASON: Abnormal mammogram * * * * Physician Interpretation * * * * #[id number] - [employer] BREAST [employer] LT LIMITED ULTRASOUND OF LEFT BREAST: 05/29/2023 CLINICAL: Abnormal Mammogram. Comparison is made to exam dated: 05/21/2023 mammogram - [facility]. Color flow and real-time ultrasound of the left breast 3-6 o'clock region were performed on the areas of interest. Costa scale images of the real-time examination were reviewed. There is a benign appearing 4.5 cm wider than tall oval lipoma with a circumscribed margin in the left breast at 4 o'clock middle depth. This oval lipoma is hyperechoic with internal echoes and posterior acoustic enhancement. This correlates as an incidental finding. IMPRESSION: BENIGN There is no sonographic evidence of malignancy. The 4.5 cm wider than tall oval lipoma in the left breast at 4 o'clock middle depth is consistent with a lipoma and appears benign. There is no abnormality seen in the left breast to correspond with the mammography finding in the lower outer quadrant. Followup with ACR/ACS guidelines. The patient was notified of the results. Electronically signed by: Cecil ramirez/noel:05/29/2023 13:41:35 Pattern Cutter(s): Maria Teresa Rebolledo, [facility] letter sent: BIRADS 1&2 - Abnormal History Ultrasound BI-RADS: 2 Benign Knot Picker Cloth: Noel Transcribe Date/Time: May 29 2023 11:50A Dictated by : CECIL MARIN DO This examination was interpreted and the report reviewed and electronically signed by: CECIL MARIN DO on May 29 2023 1:41PM EST [id number] Normal [facility] US Breast - left limitedon 0 05-29-2023 [facility] DBT Breast - bilateral scree ningon 05-21-2023 [facility] Absolute lymphocyte countOrd ered By: Keith Heart on 01-17-2023 Lymphocytes Auto (Unsp spec) [#/Vol] 1.37 10*3/uL 0.83-4.51 [facility] Basophil percentageOrdered B y: Keith Heart on 01-17-2023 Basophils/100 WBC (Bld) 0.5 % 0-1 [facility] Bilirubin [Mass/Vol] 0.50 mg/dL 0.20-1.00 [facility] Comment on above: For patients on eltr ombopag therapy, use of [employer] [place] TBIL is not recommended. Chloride [Moles/Vol] 103 mmol/L 98-107 [facility] Cholesterol [Mass/Vol] 168 mg/dL <200 [facility] Comment on above: <200 mg/dL Desirable 200-240 mg/dL Borderline >240 mg/dL High Risk Eosinophils/100 WBC (Bld) 2.6 % 0-5 [facility] Glucose [Mass/Vol] 169 mg/dL 74-106 [facility] Comment on above: Fasting Glucose resu lt greater than or equal to 126 mg/dL suggests DIABETES MELLITUS per A.D.A. criteria. Neutrophils (Bld) [#/Vol] 3.9 10*3/uL 2.0-7.7 [facility] Neutrophils/100 WBC (Bld) 66.9 % 47-70 [facility] Potassium [Moles/Vol] 4.0 mmol/L 3.5-5.1 [facility] Protein [Mass/Vol] 7.2 g/dL 6.4-8.2 [facility] Sodium [Moles/Vol] 137 mmol/L 136-145 [facility] Triglyceride [Mass/Vol] 313 mg/dL <199 [facility] Comment on above: The drugs N-Acetylcy steine and Metamizole may falsely depress this assay.Serum Triglycerides Reference Interval Normal <150 mg/dL Borderline high 150 - 199 mg/dL High 200 - 499 mg/dL Very High > or = 500 mg/dL WBC (Bld) [#/Vol] 5.9 10*3/uL 4.4-11.0 [facility] Blood erythrocytes count (nu mber/volume)Ordered By: Keith Heart on 01-17-2023 RBC (Bld) [#/Vol] 4.43 10*6/uL 4.2-5.4 [facility] Blood hemoglobin measurement (mass/volume)Ordered By: Keith Heart on 01-17-2023 Hemoglobin (Bld) [Mass/Vol] 12.1 g/dL 12.0-15.0 [facility] Blood lymphocytes/100 leukoc ytesOrdered By: Keith Heart on 01-17-2023 Lymphocytes/100 WBC (Bld) 23.4 % 19-41 [facility] Blood monocytes/100 leukocyt esOrdered By: Keith Heart on 01-17-2023 Monocytes/100 WBC (Bld) 6.3 % 0-10 [facility] Blood platelet mean volumeOr dered By: Keith Heart on 01-17-2023 Platelet mean volume (Bld) [Entitic vol] 11.3 fL 6.2-12.0 [facility] Determination of erythrocyte mean corpuscular volume (MCV)Ordered By: Keith Heart on 01-17-2023 MCV (RBC) [Entitic vol] 90.3 fL 81-99 [facility] Hematocrit Auto (Bld) [Volum e fraction]Ordered By: Keith Heart on 01-17-2023 Hematocrit (Bld) [Volume fraction] 40.0 % 37-47 [facility] Laboratory - Chemistry and C hemistry - challengeOrdered By: Keith Heart on 01-17-2023 ALP [Catalytic activity/Vol] 97 U/L 45-117 [facility] ALT [Catalytic activity/Vol] 26 U/L 13-56 [facility] CO2 [Moles/Vol] 29.0 mmol/L 21.0-32.0 [facility] Globulin (S) [Mass/Vol] 3.8 g/dL 2.2-4.2 [facility] Urea nitrogen/Creatinine [Mass ratio] 15.6 mg/mg 10-20 [facility] Laboratory - Hematology and Cell countsOrdered By: Keith Heart on 01-17-2023 Erythrocyte distribution width (RBC) [Entitic vol] 48.8 fL 35.1-43.9 [facility] Erythrocyte distribution width (RBC) [Ratio] 14.7 % 11.6-14.6 [facility] Immature granulocytes/100 WBC (Bld) 0.300 % 0.0-0.9 [facility] Comment on above: IG% - Immature Granu locytes (promyelocytes, myelocytes and metamyelocytes) > 1% indicates that a LEFT SHIFT is Present. MCH (RBC) [Entitic mass] 27.3 pg 27.0-32.0 [facility] Nucleated RBC/100 WBC (Bld) [Ratio] 0 % 0-5 [facility] MCHC Auto (RBC) [Mass/Vol]Or dered By: Keith Heart on 01-17-2023 MCHC (RBC) [Mass/Vol] 30.3 g/dL 32-36 [facility] No Panel InformationOrdered By: Keith Heart on 01-17-2023 Estimated GFR (MDRD) Amer 40 mL/min >60 [facility] Comment on above: GFR Calc Estimated GFR (MDRD) Non-Af Amer 33 mL/min >60 [facility] Comment on above: Non- GFR Calc Thyroid Stimulating Hormone (TSH) 2.06 uIU/mL 0.358-3.74 [facility] Platelets bldOrdered By: Mini Heart on 01-17-2023 Platelets (Bld) [#/Vol] 189 10*3/uL 150-450 [facility] Serum or plasma albumin rashad urement (mass/volume)Ordered By: Keith Heart on 01-17-2023 Albumin [Mass/Vol] 3.4 g/dL 3.2-5.0 [facility] Serum or plasma albumin/glob ulin mass ratioOrdered By: [facility] on 01-17-2023 Albumin/Globulin [Mass ratio] 0.9 {ratio} 0.9-2.4 [facility] Serum or plasma calcium rashad urement (mass/volume)Ordered By: Keith Heart on 01-17-2023 Calcium [Mass/Vol] 8.6 mg/dL 8.5-10.1 [facility] Serum or plasma cholesterol in HDL measurement (mass/volume)Ordered By: [facility] on 01-17-2023 Cholesterol in HDL [Mass/Vol] 39 mg/dL >40 [facility] Comment on above: The drugs N-Acetylcy steine and Metamizole may falsely depress this assay. Reference Range HDL <40 mg/dL Low HDL Cholesterol HDL >or= 60 mg/dL High HDL Cholesterol Serum or plasma cholesterol in VLDL measurement (mass/volume)Ordered By: Keith Una on 01-17-2023 Cholesterol in VLDL [Mass/Vol] 63 mg/dL 5-40 [facility] Serum or plasma creatinine m easurement (mass/volume)Ordered By: Keith Heart on 01-17-2023 Creatinine [Mass/Vol] 1.67 mg/dL 0.55-1.02 [facility] Comment on above: The validity of the calculated GFR & GFRAA in patients over 70 years has not been determined. Clinical correlation is essential. Serum or plasma low density lipoprotein (LDL) cholesterol measurement (mass/volume)Ordered By: Keith Heart on 01-17-2023 Cholesterol in LDL [Mass/Vol] 66 mg/dL 0-130 [facility] Serum or plasma urea nitroge n measurement (mass/volume)Ordered By: Keith Heart on 01-17-2023 Urea nitrogen [Mass/Vol] 26 mg/dL 7-18 [facility] Thin prep Papanicolaou smear with manual screeningOrdered By: Keith Heart on 01-17-2023 Thin prep Papanicolaou smear with manual screening 14 U/L 15-37 [facility] Thin prep Papanicolaou smear with manual screening 5 5-15 [facility] Whole blood hemoglobin A1c/t otal hemoglobin ratio (mass fraction)Ordered By: Keith Heart on 01-17-2023 HbA1c (Bld) [Mass fraction] 7.5 % 3.8-5.6 [facility] Comment on above: Normal < 5.7 % Predi abetic 5.7 - 6.4 % Diabetic >or= 6.5 % Please note range changes. No Panel InformationOrdered By: Keith Heart on 10-26-2022 Thyroid Stimulating Hormone (TSH) 1.70 uIU/mL 0.358-3.74 [facility] STREP A MOLECULAR (POC)on Procedural Control Valid [facility] Strep A (POCT) Negative Negative [facility] IAM SCREENING W Dione 04-27 [facility] UA DIP, URINE (POC)on 2021 BILIRUBIN UA (POCT) Negative Negative [facility] CLARITY UA (POCT) Slightly Cloudy Cl [facility] COLOR UA (POCT) Other [facility] GLUCOSE UA (POCT) Negative Negative mg/dL [facility] HEMOGLOBIN/BLOOD UA (POCT) Large Abnormal Negative [facility] KETONE UA (POCT) Negative Negative mg/dL [facility] LEUKOCYTES UA (POCT) Small Abnormal Negative [facility] NITRITE UA (POCT) Negative Negative [facility] PH UA (POCT) 5.5 4.5 - 8.0 [facility] Protein Ql (U) 100 mg/dL Abnormal Negative mg/dL [facility] SPECIFIC GRAVITY UA (POCT) 1.015 1.005 - 1.030 [facility] UROBILINOGEN UA (POCT) 0.2 E.U./dL Normal E.U./ dL [facility] STREP A MOLECULAR (POC)on Procedural Control Valid [facility] Strep A (POCT) Negative Negative [facility] Vital Signs Date Time Vital Sign Value Performing Clinician Sharmin cohn 12-11-2023 14:33-0400 Body height 161.9 cm Yazmin Farley MD Work Phone: [facility] 12-11-2023 14:33-0400 Body mass index (BMI) [Ratio] 42.73 kg/m2 Yazmin Farley MD Work Phone: [facility] 12-11-2023 14:33-0400 Body weight 112.04 kg Yazmin Farley MD Work Phone: [facility] 12-11-2023 14:33-0400 Diastolic blood pressure 74 mm[Hg] Yazmin Farley MD Work Phone: [facility] 12-11-2023 14:33-0400 Systolic blood pressure 118 mm[Hg] Yazmin Farley MD Work Phone: [facility] 10-19-2022 08:57-0400 Body height 161.8 cm Kerline Podlogar TOXICS PROGRAM OFFICER.MUD MIXER OPERATOR Work Phone: [facility] 10-19-2022 08:57-0400 Body weight 114.31 kg Kerline Podlogar TOXICS PROGRAM OFFICER.MUD MIXER OPERATOR Work Phone: [facility] 10-19-2022 08:57-0400 Diastolic blood pressure 78 mm[Hg] Kerline Podlogar TOXICS PROGRAM OFFICER.MUD MIXER OPERATOR Work Phone: [facility] 10-19-2022 08:57-0400 Heart rate 86 /min Kerline Podlogar TOXICS PROGRAM OFFICER.MUD MIXER OPERATOR Work Phone: [facility] 10-19-2022 08:57-0400 Respiratory rate 16 /min Kerline Podlogar TOXICS PROGRAM OFFICER.MUD MIXER OPERATOR Work Phone: [facility] 10-19-2022 08:57-0400 SaO2% (BldA) [Mass fraction] 98 % Kerline Podlogar TOXICS PROGRAM OFFICER.MUD MIXER OPERATOR Work Phone: [facility] 10-19-2022 08:57-0400 Systolic blood pressure 132 mm[Hg] Kerline Podlogar TOXICS PROGRAM OFFICER.MUD MIXER OPERATOR Work Phone: [facility] 07-10-2022 16:55-0400 Body weight 116.3 kg Pito Moya MD Work Phone: [facility] 07-10-2022 16:55-0400 Diastolic blood pressure 68 mm[Hg] Pito Moya MD Work Phone: [facility] 07-10-2022 16:55-0400 Heart rate 85 /min Pito Moya MD Work Phone: [facility] 07-10-2022 16:55-0400 Respiratory rate 16 /min Pito Moya MD Work Phone: [facility] 07-10-2022 16:55-0400 SaO2% (BldA) [Mass fraction] 98 % Pito Moya MD Work Phone: [facility] 07-10-2022 16:55-0400 Systolic blood pressure 112 mm[Hg] Pito Moya MD Work Phone: [facility] 06-07-2022 10:40-0500 Body temperature 98.91 [degF] Reggie Rishabh TOXICS PROGRAM OFFICER.MUD MIXER OPERATOR Work Phone: [facility] 06-07-2022 10:40-0500 Body weight 115.85 kg Reggie Rishabh TOXICS PROGRAM OFFICER.MUD MIXER OPERATOR Work Phone: [facility] 06-07-2022 10:40-0500 Diastolic blood pressure 78 mm[Hg] Reggie Rishabh TOXICS PROGRAM OFFICER.MUD MIXER OPERATOR Work Phone: [facility] 06-07-2022 10:40-0500 Heart rate 87 /min Reggie Rishabh TOXICS PROGRAM OFFICER.MUD MIXER OPERATOR Work Phone: [facility] 06-07-2022 10:40-0500 Respiratory rate 16 /min Reggie Rishabh TOXICS PROGRAM OFFICER.MUD MIXER OPERATOR Work Phone: [facility] 06-07-2022 10:40-0500 SaO2% (BldA) [Mass fraction] 98 % Reggie Rishabh TOXICS PROGRAM OFFICER.MUD MIXER OPERATOR Work Phone: [facility] 06-07-2022 10:40-0500 Systolic blood pressure 130 mm[Hg] Reggie Rishabh TOXICS PROGRAM OFFICER.MUD MIXER OPERATOR Work Phone: [facility] 03-11-2022 13:27-0500 Body temperature 97.11 [degF] Debora Praisler-Wood TOXICS PROGRAM OFFICER.MUD MIXER OPERATOR Work Phone: [facility] 03-11-2022 13:27-0500 Body weight 113.67 kg Debora Pramary annler-Wood TOXICS PROGRAM OFFICER.MUD MIXER OPERATOR Work Phone: [facility] 03-11-2022 13:27-0500 Diastolic blood pressure 74 mm[Hg] Debora Praisler-Wood TOXICS PROGRAM OFFICER.MUD MIXER OPERATOR Work Phone: [facility] 03-11-2022 13:27-0500 Heart rate 92 /min Debora Praisler-Wood TOXICS PROGRAM OFFICER.MUD MIXER OPERATOR Work Phone: [facility] 03-11-2022 13:27-0500 SaO2% (BldA) [Mass fraction] 97 % Debora Praisler-Wood TOXICS PROGRAM OFFICER.MUD MIXER OPERATOR Work Phone: [facility] 03-11-2022 13:27-0500 Systolic blood pressure 122 mm[Hg] Debora Praisler-Wood TOXICS PROGRAM OFFICER.MUD MIXER OPERATOR Work Phone: [facility] 02-04-2022 09:47-0400 Body temperature 99.5 [degF] Jennifer Austin TOXICS PROGRAM OFFICER.MUD MIXER OPERATOR Work Phone: [facility] 02-04-2022 09:47-0400 Body weight 112.49 kg Jennifer Austin APRN.MUD MIXER OPERATOR Work Phone: [facility] 02-04-2022 09:47-0400 Diastolic blood pressure 68 mm[Hg] Jennifer Austin TOXICS PROGRAM OFFICER.MUD MIXER OPERATOR Work Phone: [facility] 02-04-2022 09:47-0400 Heart rate 110 /min Jennifer Austin APRN.MUD MIXER OPERATOR Work Phone: [facility] 02-04-2022 09:47-0400 Respiratory rate 16 /min Jennifer Austin APRN.MUD MIXER OPERATOR Work Phone: [facility] 02-04-2022 09:47-0400 SaO2% (BldA) [Mass fraction] 96 % Jennifer Austin APRN.MUD MIXER OPERATOR Work Phone: [facility] 02-04-2022 09:47-0400 Systolic blood pressure 134 mm[Hg] Jennifer Austin APRN.MUD MIXER OPERATOR Work Phone: [facility] 07-19-2021 13:12-0400 Body weight 107.96 kg Pito Moya MD Work Phone: [facility] Encounters Encounter Date Encounter Type Care Provider Facility Start: 10-07-2024 End: 10-07-2024 ambulatory Keith Heart MD Work Phone: -Laboratory [employer] Start: 10-07-2024 End: 10-07-[address] Keith Heart MD -Laboratory [employer] Work Phone: Start: 10-07-2024 End: 10-07-2024 ambulatory Keith Heart Facility:[facility] Start: 09-08-2024 End: 09-08-2024 ambulatory Keith Heart MD Work Phone: [facility] Work Phone: Start: 09-08-2024 End: 09-08-[address] Keith Heart MD -Ultrasound [facility] Work Phone: Start: 09-08-2024 End: 09-08-2024 ambulatory Keith Heart Facility:[facility] Start: 07-29-2024 End: 07-29-2024 Patient encounter procedure Keith Heart MD Work Phone: -[facility]atory [facility] Work Phone: Start: 07-29-2024 End: 07-29-2024 ambulatory OLVIN WALTER Facility:[facility] Start: 05-27-2024 End: 07-27-2024 Follow-up encounter Simran Breaux APRN.MUD MIXER OPERATOR Work Phone: OB/Gynecology Start: 05-27-2024 End: 05-27-2024 ambulatory YAZMIN FARLEY Facility:[facility] Start: 05-27-2024 Encounter for gynecological examination (general) (routine) without abnormal findings YAZMIN FARLEY [facility] Start: 05-27-2024 End: 05-27-2024 Patient encounter status [facility] Start: 05-27-2024 End: 05-27-2024 Subsequent hospital visit by physician Screen Mammo [facility] Comment on above: Encounter for gyneco logical examination (general) (routine) without abnormal findings [Z01.419] Start: 04-28-2024 End: 04-28-2024 ambulatory Betyaniy Una Facility:[facility] Start: 04-03-2024 ambulatory Wilmer Grey Facility :[facility] Start: 03-23-2024 End: 03-23-2024 ambulatory Chalanyi Una Facility:[facility] Start: 03-13-2024 End: 03-13-2024 ambulatory Wilmer Grey Facility:[facility] Start: 02-25-2024 ambulatory Jose De Jesus Brizuela Facility:[facility] Start: 02-25-2024 End: 02-25-2024 ambulatory [facility] Facility:[facility] Start: 02-24-2024 End: 02-24-2024 Emergency department patient visit [facility] Facility:[facility] Start: 01-28-2024 End: 01-28-2024 ambulatory Keith Una Facility:[facility] Start: 01-10-2024 End: 01-10-2024 [facility] Start: 12-11-2023 End: 12-11-2023 ambulatory YAZMIN FARLEY Facility:[facility] Start: 12-11-2023 End: 12-11-2023 Patient encounter procedure Yazmin Farley MD Work Phone: OB/Gynecology Comment on above: Encounter for gyneco logical examination (general) (routine) without abnormal findings (Primary Dx); Encounter for screening mammogram for breast cancer Start: 12-11-2023 End: 12-11-2023 Patient encounter status Yazmin Farley MD Work Phone: [facility] Start: 10-24-2023 End: 10-24-2023 ambulatory Keith Heart Facility:[facility] Start: 07-30-2023 End: 07-30-2023 ambulatory [facility] Work Phone: Start: 07-30-2023 End: 07-30-2023 [facility] Start: 06-25-2023 End: 06-25-2023 ambulatory [facility] Work Phone: Start: 06-25-2023 End: 06-25-2023 [facility] Work [facility]: Start: 06-12-2023 End: 06-12-2023 ambulatory [facility] Work Phone: Start: 06-12-2023 End: 06-12-2023 Patient encounter procedure [facility]-Outpatient Bone Densitometry Work Phone: Start: 05-29-2023 ambulatory KEITH HEART Facility:1 [phone] Start: 05-29-2023 End: 05-29-2023 Subsequent hospital visit by physician Diagnostic Mammo [facility] Comment on above: Abnormal mammogram [ R92.8] Start: 05-21-2023 Documentation procedure Mammog rommel Coordinator [facility] Start: 05-21-2023 Letter encounter Mammography Coordinator [facility] Department Start: 05-21-2023 End: 05-21-2023 Orders Only Yazmin Farley MD Work Phone: OB/Gynecology Comment on above: Abnormal mammogram ( Primary Dx) Encounter for gyneco logical examination (general) (routine) without abnormal findings [Z01.419] Start: 05-21-2023 End: 05-21-2023 Patient encounter status [facility] Start: 01-30-2023 End: 01-30-2023 ambulatory [facility] Work Phone: Start: 01-30-2023 End: 01-30-2023 Patient encounter procedure [facility]-Ultrasound, [facility] Work Phone: Start: 01-17-2023 End: 01-17-2023 ambulatory [facility] Work Phone: Start: 01-17-2023 End: 01-17-2023 [facility] Start: 10-26-2022 End: 10-26-2022 Patient encounter procedure [facility] Start: 10-23-2022 Telephone encounter Kerline jones APRN.MUD MIXER OPERATOR Work Phone: [facility] Comment on above: Results Start: 10-19-2022 Telephone encounter Kerline jones APRN.MUD MIXER OPERATOR Work Phone: [facility] Comment on above: Consult Start: 10-19-2022 End: 10-19-2022 Patient encounter procedure 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 [facility] Comment on above: Essential hypertensi on, benign (Primary Dx); 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; Type 2 diabetes mellitus with stage 3a chronic kidney disease, without long-term current use of insulin (HCC); Screening for colon cancer; Stage 3b chronic kidney disease (HCC); 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 Start: 07-10-2022 End: 07-10-2022 Patient encounter procedure Pito Moya MD Work Phone: [facility] Comment on above: Type 2 diabetes victor hugo itus with stage 3a chronic kidney disease, without long-term current use of insulin (HCC) (Primary Dx); Stage 3a chronic kidney disease (HCC); 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; Essential hypertension, benign; Chronic gout involving toe without tophus, unspecified cause, unspecified laterality; Hyperlipidemia with target LDL less than 100 Start: 06-09-2022 Telephone encounter Hao Moya MD Work Phone: [facility] [place] Comment on above: Medication Problem Start: 06-07-2022 End: 06-07-2022 Patient encounter procedure Reggie Keating APRN.MUD MIXER OPERATOR Work Phone: [facility] Comment on above: Sinobronchitis (Prim damian Dx); Throat pain Start: 06-06-2022 Refill Pito Moya MD Work Phone: [facility] Comment on above: Refill Request Start: 05-30-2022 Refill Good ALMEIDA RN.MUD MIXER OPERATOR, DNP Work Phone: [facility] [place] Comment on above: Refill Request Start: 04-28-2022 Documentation procedure Mammog rommel Coordinator [facility] Start: 04-28-2022 Letter encounter Mammography Coordinator [facility] Department Start: 04-27-2022 End: 04-27-2022 Subsequent hospital visit by physician Screen Mammo [facility] Comment on above: Encounter for screen ing mammogram for malignant neoplasm of breast [Z12.31] Start: 04-24-2022 Refill 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 Work Phone: [facility] [place] Comment on above: Refill Request Start: 03-12-2022 Telephone encounter Debora Pena APRN.ERIC Work Phone: [facility] Comment on above: Results Start: 03-11-2022 End: 03-11-2022 Patient encounter procedure Debora Marshall APRN.ERIC Work Phone: [facility] Comment on above: Urinary frequency (P rimary Dx) Start: 03-06-2022 Refill Pito Moya MD Work Phone: [facility] [place] Comment on above: Refill Request Start: 02-06-2022 ambulatory Kerline Tobiaslogtracy [employer]ANT[employer]ERIC Work Phone: [facility] [place] Comment on above: Urgent care test res ults Start: 02-05-2022 Telephone encounter Debora Pena APRN.MUD MIXER OPERATOR Work Phone: [facility] Comment on above: Results, Lab Start: 02-04-2022 End: 02-04-2022 Patient encounter procedure Jennifer Austin APRN.ERIC Work Phone: [facility] Comment on above: At increased risk of exposure to COVID-19 virus (Primary Dx); Sore throat Start: 01-15-2022 ambulatory Kerline Podlogtracy [employer]ERIC Work Phone: [facility] [place] Comment on above: statin Start: 12-31-2021 Refill Good ALMEIDA RN.[facility] Work Phone: [facility] Comment on above: Refill Request Start: 12-15-2021 Refill Good ALMEIDA RN.[facility] Work Phone: [facility] Comment on above: Refill Request Start: 11-28-2021 Refill Kerline Sanchez APRN.[facility] Work Phone: [facility] [place] Comment on above: Refill Request Start: 11-25-2021 Refill Good ALMEIDA RN.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; Essential hypertension, benign; Hyperlipidemia with target LDL less than 100; Chronic gout involving toe without tophus, unspecified cause, unspecified laterality; Obesity, Class III, BMI 40-49.9 (morbid obesity) (HCC) Procedures Date Procedure Procedure Detail Performing Clinician Start: 10-07-2024 Vitamin D, 25-hydrox y measurement Keith Heart MD Work Phone: Comment on above: Vitamin D StatusDefi ciency: <20 ng/mL (50nmol/L)Insufficiency: 20-30 ng/mL (50-75 nmol/L)Sufficiency: 30-100 ng/mL (75-250 nmol/L)Toxicity: >100 ng/mL (>250 nmol/L) Start: 09-08-2024 Ultrasonography of t hyroid and parathyroid Keith Heart MD Work Phone: Start: 07-29-2024 Parathyroid hormone measurement Keith Heart MD Work Phone: Start: 07-29-2024 Serum inorganic phos phate measurement Keith Heart MD Work Phone: Start: 07-29-2024 Vitamin D, 25-hydrox y measurement Keith Heart MD Work Phone: Comment on above: Vitamin D StatusDefi ciency: <20 ng/mL (50nmol/L)Insufficiency: 20-30 ng/mL (50-75 nmol/L)Sufficiency: 30-100 ng/mL (75-250 nmol/L)Toxicity: >100 ng/mL (>250 nmol/L) Start: 05-27-2024 Screening digital br east tomosynthesis bi Yazmin Farley MD Work Phone: Start: 07-30-2023 Plain x-ray of elbow Start: 06-12-2023 Dual energy X-ray absorptiometry Start: 05-29-2023 Us breast uni real t michelle with image limited Yazmin Farley MD Work Phone: Start: 05-21-2023 Screening digital br east tomosynthesis bi Yazmin Farley MD Work Phone: Start: 01-30-2023 US urinary tract Start: 06-07-2022 STREP A MOLECULAR (POC) Debora Marshall APRN.MUD MIXER OPERATOR Work Phone: Start: 04-27-2022 IAM SCREENING W TREV Re hakeem Farley MD Work Phone: Start: 04-27-2022 Mammography Mammograph y Coordinator Start: 03-11-2022 Urnls dip stick/tabl et rgnt auto w/o microscopy Jennifer Austin APRN.MUD MIXER OPERATOR Work Phone: Start: 02-04-2022 STREP A MOLECULAR (POC) Jennifer Austin APRN.MUD MIXER OPERATOR Work Phone: Start: 05-29-2021 Adult depression scr eening assessment Pito Moya MD Work Phone: Start: 04-20-2021 Mammography Hao Moya MD Work Phone: Plan of Treatment Date Care Activity Detail Author Start: 09-20-2029 Urine microalbumin profile [facility] Start: 09-19-2027 HPV TESTING HPV TESTING [facility] Start: 09-19-2027 PAP TESTING PAP TESTING [facility] Start: 05-21-2026 Screening for malign ant neoplasm of colon [facility] Start: 05-27-2025 Screening for malign ant neoplasm of breast Mammogram Screening [facility] Start: 12-10-2024 BP Controlled (<130/80) BP Controlle d (<130/80) [facility] Start: 05-22-2024 End: 05-22-2024 Patient encounter procedure 05/22/2024 9:30 AM EST Appointment Mammogram [address] [place], [place] [id number] MAMMO W TREV Mammogram Comment on above: MAMMO W TREV Start: 05-21-2024 Screening for malign ant neoplasm of breast Mammogram Screening [facility] Start: 04-08-2024 Advance Directive Discussion Advance Directive Discussion [facility] Start: 12-08-2023 Covid-19 Vaccine () Covid-19 Vaccine () [facility] Start: 12-08-2023 Covid-19 Vaccine ( season) Covid-19 Vaccine () [facility] Start: 12-08-2023 Influenza vaccination Influenza Vacc ine (#1) [facility] Start: 10-20-2023 ANNUAL PCP TEAM S[employer]IOR [employer]WORK SYSTEMS ENGINEER MARY DISEASE VISIT ANNUAL PCP TEAM CHRONIC DISEASE VISIT [facility] [facility] Start[facility] 10-14-2023 Creatinine measurement Serum Creatin ine [facility] Start: 10-14-2023 SERUM CREATININE SERUM CREATININE Cl [facility] Start: 07-11-2023 3 comp foot exam completed DIABETIC FOOT EXAM [facility] Start: 07-11-2023 ANNUAL PCP TEAM SENIOR NETWORK SYSTEMS ENGINEER MARY DISEASE VISIT ANNUAL PCP TEAM CHRONIC DISEASE VISIT [facility] Start: 07-11-2023 BP CONTROLLED (<130/80) BP CONTROLLE D (<130/80) [facility] Start: 07-11-2023 COVID-19 VACCINE (4 - Booster for Moderna series) COVID-19 VACCINE (4 - Booster for Moderna series) [facility] Comment on above: Postponed from 05/11 (Declined at this time) Start: 07-11-2023 COVID-19 VACCINE (4 - Moderna series) COVID-19 VACCINE (4 - Moderna series) [facility] Comment on above: Postponed from 05/11 (Declined at this time) Start: 07-11-2023 Diabetic foot examination Diabetic Foot Exam [facility] Start: 07-08-2023 Hepatitis B surface antibody level LDL CHOLESTEROL [facility] Start: 07-08-2023 SERUM CREATININE SERUM CREATININE Cl [facility] Start: 06-23-2023 Glaucoma screening Dilated Retinal E xam [facility] Start: 06-23-2023 Hepatitis C antibody , confirmatory test DILATED RETINAL EXAM [facility] Start: 06-12-2023 Dual energy X-ray absorptiometry Dexa Bone Density Study [facility] Start: 06-12-2023 DXA Bone [Mass/Area] Bone density [facility] Start: 04-27-2023 Mammography [facility] Start: 04-15-2023 Hemoglobin A1c measurement HbA1C [facility] Start: 04-15-2023 Hemoglobin A1c/Hemoglobin.total in Blood HBA1C [facility] Start: 04-08-2023 Advance Directive Discussion Advance Directive Discussion [facility] Start: 04-08-2023 Depression Assessment Depression Ass essment [facility] Start: 03-11-2023 BP CONTROLLED (<130/80) BP CONTROLLE D (<130/80) [facility] Start: 01-19-2023 End: 03-21-2023 Hemoglobin A1c in Blood HGB A1C Lab Routine Type 2 diabetes mellitus with stage 3a chronic kidney disease, without long-term current use of insulin (HCC) Expected: 01/19/2023, Expires: 03/21/2023 [facility] Work Phone: Comment on above: Expected: 01/19/2023 , Expires: 03/21/2023 Start: 01-09-2023 ANNUAL PCP TEAM SENIOR NETWORK SYSTEMS ENGINEER MARY DISEASE VISIT ANNUAL PCP TEAM CHRONIC DISEASE VISIT [facility] Start: 01-09-2023 BP CONTROLLED (<130/80) BP CONTROLLE D (<130/80) [facility] Start: 01-06-2023 Hemoglobin A1c/Hemoglobin.total in Blood HBA1C [facility] Start: 01-06-2023 HPV TESTING HPV TESTING [facility] Start: 01-06-2023 PAP TESTING PAP TESTING [facility] Start: 01-06-2023 SERUM CREATININE SERUM CREATININE Cl [facility] Start: 12-07-2022 Covid-19 Vaccine () Covid-19 Vaccine () [facility] Start: 12-07-2022 Influenza vaccination [facility] Start: 2022 Advance Directive Discussion Advance Directive Discussion [facility] Start: 2022 Bone Density Screening Bone Density Screening [facility] Start: 2022 PNEUMOCOCCAL (3 - PP SV23 if available, else PCV20) PNEUMOCOCCAL (3 - PPSV23 if available, else PCV20) [facility] Start: 2022 PNEUMOCOCCAL (3 - PP SV23 or PCV20) PNEUMOCOCCAL (3 - PPSV23 or PCV20) [facility] Start: 2022 Pneumococcal Vaccine : 65+ (3 - PPSV23 or PCV20) Pneumococcal Vaccine: 65+ (3 - PPSV23 or PCV20) [facility] Start: 2022 Pneumococcal Vaccine : 65+ (3 of 3 - PPSV23 or PCV20) Pneumococcal Vaccine: 65+ (3 of 3 - PPSV23 or PCV20) [facility] Start: 2022 Screening for osteoporosis Bone Density Screening [facility] Start: 10-19-2022 End: 12-19-2022 ALBUMIN/CREAT RATIO RND UR ALBUMIN/CREAT RATIO RND UR Lab Routine Type 2 diabetes mellitus with stage 3a chronic kidney disease, without long-term current use of insulin (HCC) Expected: 10/19/2022, Expires: 12/19/2022 [facility] Work Phone: Comment on above: Expected: 10/19/2022 , Expires: 12/19/2022 Start: 10-19-2022 End: 12-19-2022 CBC W Auto Differential panel - Blood CBC + DIFF Lab Routine Type 2 diabetes mellitus with stage 3a chronic kidney disease, without long-term current use of insulin (HCC) Expected: 10/19/2022, Expires: 12/19/2022 [facility] Work Phone: Comment on above: Expected: 10/19/2022 , Expires: 12/19/2022 Start: 10-19-2022 End: 12-19-2022 Thyrotropin [Units/volume] in Serum or Plasma TSH BLD Lab Routine 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 Expected: 10/19/2022, Expires: 12/19/2022 [facility] Work Phone: Comment on above: Expected: 10/19/2022 , Expires: 12/19/2022 Start: 10-09-2022 End: 12-09-2022 Comprehensive metabolic 2000 panel - Serum or Plasma COMP METABOLIC PANEL Lab Routine Type 2 diabetes mellitus with stage 3a chronic kidney disease, without long-term current use of insulin (HCC) Expected: 10/09/2022, Expires: 12/09/2022 [facility] Work Phone: Comment on above: Expected: 10/09/2022 , Expires: 12/09/2022 Start: 10-09-2022 End: 12-09-2022 Hemoglobin A1c in Blood HGB A1C Lab Routine Type 2 diabetes mellitus with stage 3a chronic kidney disease, without long-term current use of insulin (HCC) Expected: 10/09/2022, Expires: 12/09/2022 [facility] Work Phone: Comment on above: Expected: 10/09/2022 , Expires: 12/09/2022 Start: 09-26-2022 ANNUAL PCP TEAM SENIOR NETWORK SYSTEMS ENGINEER MARY DISEASE VISIT ANNUAL PCP TEAM CHRONIC DISEASE VISIT [facility] Start: 09-26-2022 BP CONTROLLED (<130/80) BP CONTROLLE D (<130/80) [facility] Start: 07-19-2022 ANNUAL PCP TEAM SENIOR NETWORK SYSTEMS ENGINEER MARY DISEASE VISIT ANNUAL PCP TEAM CHRONIC DISEASE VISIT [facility] Start: 07-19-2022 BP CONTROLLED (<130/80) BP CONTROLLE D (<130/80) [facility] Start: 07-10-2022 End: 09-09-2022 ALBUMIN/CREAT RATIO RND UR ALBUMIN/CREAT RATIO RND UR Lab Routine Type 2 diabetes mellitus with stage 3a chronic kidney disease, without long-term current use of insulin (HCC) Expected: 07/10/2022, Expires: 09/09/2022 [facility] Work Phone: Comment on above: Expected: 07/10/2022 , Expires: 09/09/2022 Start: 07-10-2022 End: 09-09-2022 CBC W Auto Differential panel - Blood CBC + DIFF Lab Routine Type 2 diabetes mellitus with stage 3a chronic kidney disease, without long-term current use of insulin (HCC) Expected: 07/10/2022, Expires: 09/09/2022 [facility] Work Phone: Comment on above: Expected: 07/10/2022 , Expires: 09/09/2022 Start: 07-07-2022 Hemoglobin A1c/Hemoglobin.total in Blood HBA1C [facility] Start: 07-04-2022 Pneumococcal Vaccine : 50+ (3 of 3 - PCV20 or PCV21) Pneumococcal Vaccine: 50+ (3 of 3 - PCV20 or PCV21) [facility] Start: 06-20-2022 Hepatitis C antibody , confirmatory test DILATED RETINAL EXAM [facility] Start: 06-03-2022 COLORECTAL CANCER SCREENING COLORECTAL CANCER SCREENING [facility] Start: 06-03-2022 FECAL OCCULT BLOOD FECAL OCCULT BLOO D [facility] Start: 06-03-2022 Screening for malign ant neoplasm of colon [facility] Start: 05-29-2022 3 comp foot exam completed DIABETIC FOOT EXAM [facility] Start: 05-29-2022 Adult depression screening assessment DEPRESSION SCREENING [facility] Start: 05-20-2022 Complete blood count Hemoglobin/Romain tocrit [facility] Start: 05-20-2022 HEMOGLOBIN/HEMATOCRIT HEMOGLOBIN/HEM ATOCRIT [facility] Start: 05-20-2022 Hepatitis B screening URINE AL BUMIN:CREATININE RATIO [facility] Start: 05-20-2022 SERUM CREATININE SERUM CREATININE Cl [facility] Start: 04-20-2022 Mammography MAMMOGRAM [facility] Start: 04-08-2022 DEPRESSION ASSESSMENT DEPRESSION ASS ESSMENT [facility] Start: 03-24-2022 Hemoglobin A1c/Hemoglobin.total in Blood HBA1C [facility] Start: 02-04-2022 End: 02-18-2022 Influenza virus A and B RNA and SARS-CoV-2 (COVID-19) N gene panel - Respiratory specimen by BITA with probe detection COVID WITH FLUA+B, ROUTINE Microbiology Routine At increased risk of exposure to COVID-19 virus Expected: 02/04/2022, Expires: 02/18/2022 [facility] Work Phone: Comment on above: Expected: 02/04/2022 , Expires: 02/18/2022 Start: 01-16-2022 End: 03-18-2022 Comprehensive metabolic 2000 panel - Serum or Plasma COMP METABOLIC PANEL Lab Routine Hyperlipidemia with target LDL less than 100 Expected: 01/16/2022, Expires: 03/18/2022 [facility] Work Phone: Comment on above: Expected: 01/16/2022 , Expires: 03/18/2022 Start: 01-16-2022 End: 03-18-2022 Lipid 1996 panel - Serum or Plasma LIPID PANEL BASIC Lab Routine Hyperlipidemia with target LDL less than 100 Expected: 01/16/2022, Expires: 03/18/2022 [facility] Work Phone: Comment on above: Expected: 01/16/2022 , Expires: 03/18/2022 Start: 12-07-2021 Influenza vaccination INFLUENZA (#1) [facility] Start: 11-10-2021 Hepatitis B surface antibody level LDL CHOLESTEROL [facility] Start: 08-17-2021 Hemoglobin A1c/Hemoglobin.total in Blood HBA1C [facility] Start: 07-19-2021 End: 09-18-2021 Comprehensive metabolic 2000 panel - Serum or Plasma COMP METABOLIC PANEL Lab Routine Type 2 diabetes mellitus with stage 3a chronic kidney disease, without long-term current use of insulin (HCC) Expected: 07/19/2021, Expires: 09/18/2021 [facility] Work Phone: Comment on above: Expected: 07/19/2021 , Expires: 09/18/2021 Start: 07-19-2021 End: 09-18-2021 Hemoglobin A1c/Hemoglobin.total in Blood HGB A1C Lab Routine Type 2 diabetes mellitus with stage 3a chronic kidney disease, without long-term current use of insulin (HCC) Expected: 07/19/2021, Expires: 09/18/2021 [facility] Work Phone: Comment on above: Expected: 07/19/2021 , Expires: 09/18/2021 Start: 07-19-2021 End: 09-18-2021 Thyrotropin [Units/volume] in Serum or Plasma TSH BLD Lab Routine 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 Expected: 07/19/2021, Expires: 09/18/2021 [facility] Work Phone: Comment on above: Expected: 07/19/2021 , Expires: 09/18/2021 Start: 07-19-2021 End: 09-18-2021 Urate [Mass/volume] in Serum or Plasma URIC ACID BLOOD Lab Routine Chronic gout involving toe without tophus, unspecified cause, unspecified laterality Expected: 07/19/2021, Expires: 09/18/2021 [facility] Work Phone: Comment on above: Expected: 07/19/2021 , Expires: 09/18/2021 Start: 07-15-2021 COVID-19 VACCINE (4 - Booster for Moderna series) COVID-19 VACCINE (4 - Booster for Moderna series) [facility] Start: 05-11-2021 COVID-19 VACCINE (4 - Booster for Moderna series) COVID-19 VACCINE (4 - Booster for Moderna series) [facility] Start: 04-08-2021 DEPRESSION ASSESSMENT DEPRESSION ASS ESSMENT [facility] Start: 2017 RSV Vaccine (1 - 1-d ose 60+ series) RSV Vaccine (1 - 1-dose 60+ series) [facility] Start: 2017 RSV Vaccine (1 - Ris k 60-74 years 1-dose series) RSV Vaccine (1 - Risk 60-74 years 1-dose series) [facility] Start: 02-09-2005 Hepatitis B Vaccine (3 of 3 - Risk 3-dose series) Hepatitis B Vaccine (3 of 3 - Risk 3-dose series) [facility] Start: 2002 COLOGUARD (FIT-DNA) COLOGUARD (FIT-D NA) [facility] Start: 2002 Colonoscopy COLONOSCOPY [facility] Start: [address] COLONOGRAPHY [facility] Start: 2002 Screening for malign ant neoplasm of colon [facility] Start: 2002 SIGMOIDOSCOPY SIGMOIDOSCOPY [facility] Start: 11-22-1975 Anxiety Screening Anxiety Screening [facility] Start: 11-22-1975 BP CONTROLLED (<130/80) BP CONTROLLE D (<130/80) [facility] Start: 11-22-1975 Depression Screening Depression Scre ening [facility] Bacteria identified in Urine by Culture URINE CULTURE Microbiology Routine Urinary frequency Ordered: 03/11/2022 [facility] Work Phone: Comment on above: Ordered: 03/11/2022 End: 01-09-2025 DBT Breast - bilateral screening IAM SCREENING W TREV Radiology Routine Encounter for gynecological examination (general) (routine) without abnormal findings Encounter for screening mammogram for breast cancer 1 Occurrences starting 12/11/2023 until 01/09/2025 [facility] Work Phone: Comment on above: 1 Occurrences starti ng 12/11/2023 until 01/09/2025 Hemoglobin.gastroint william nal.lower [Presence] in Stool by Immunoassay FECAL OCCULT BLOOD TEST Lab Routine Screening for colon cancer Ordered: 10/19/2022 [facility] Work Phone: Comment on above: Ordered: 10/19/2022 End: 06-19-2024 MG Breast - left Diagnostic for implant IAM DIAGNOSTIC LEFT Radiology Routine Abnormal mammogram 1 Occurrences starting 05/21/2023 until 06/19/2024 [facility] Work Phone: Comment on above: 1 Occurrences starti ng 05/21/2023 until 06/19/2024 End: 06-19-2024 US Breast - left limited US BREAST LTD LEFT Radiology Routine Abnormal mammogram 1 Occurrences starting 05/21/2023 until 06/19/2024 [facility] Work Phone: Comment on above: 1 Occurrences starti ng 05/21/2023 until 06/19/2024 [facility] Immunizations Immunization Date Immunization Notes Care Provider [facility] 01-22-2023 influenza virus vaccine, unspecified formulation Yazmin Farley MD Work Phone: [facility] 01-09-2022 influenza, injectabl e, quadrivalent, contains preservative 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 Work Phone: [facility] 01-09-2022 influenza virus vaccine, unspecified formulation Screen Wstr [facility] 01-28-2021 influenza, injectabl e, quadrivalent, contains preservative Pito Moya MD Work Phone: [facility] 01-16-2020 influenza, injectabl e, quadrivalent, contains preservative Pito Moya MD Work Phone: [facility] 09-21-2019 tetanus toxoid, redu ednilson diphtheria toxoid, and acellular pertussis vaccine, adsorbed Pito Moya MD Work Phone: [facility] 04-29-2019 zoster vaccine recombinant Pito Moya MD Work Phone: [facility] 01-22-2019 influenza, injectabl e, quadrivalent, contains preservative Pito Moya MD Work Phone: [facility] 01-22-2019 zoster vaccine recombinant Pito Moya MD Work Phone: [facility] 02-03-2018 influenza, injectabl e, quadrivalent, contains preservative Pito Moya MD Work Phone: [facility] 07-04-2017 pneumococcal polysaccharide vaccine, 23 valent Pito Moya MD Work Phone: [facility] 01-07-2017 influenza, injectabl e, quadrivalent, contains preservative Pito Moya MD Work Phone: [facility] 06-29-2016 pneumococcal conjuga te vaccine, 13 valent Pito Moya MD Work Phone: [facility] 03-23-2016 influenza, injectabl e, quadrivalent, contains preservative Pito Moya MD Work Phone: [facility] Work Phone: 02-10-2015 influenza virus vaccine, unspecified formulation Pito Moya MD Work Phone: [facility] 03-08-2014 influenza, seasonal, injectable Pito Moya MD Work Phone: [facility] Work Phone: 01-24-2010 influenza virus vaccine, unspecified formulation Pito Moya MD Work Phone: [facility] 03-16-2009 pneumococcal polysaccharide vaccine, 23 valent Pito Moya MD Work Phone: [facility] Work Phone: 01-20-2009 influenza virus vaccine, unspecified formulation Pito Moya MD Work Phone: [facility] 02-18-2008 influenza virus vaccine, unspecified formulation Pito Moya MD Work Phone: [facility] 02-20-2006 influenza virus vaccine, whole virus Pito Moya MD Work Phone: [facility] Work Phone: 11-08-2004 hepatitis B vaccine, adult dosage Pito Moya MD Work Phone: [facility] Work Phone: 09-13-2004 hepatitis B vaccine, adult dosage Pito Moya MD Work Phone: [facility] Work Phone: 08-10-2004 diphtheria and tetan us toxoids, adsorbed for pediatric use Pito Moya MD Work Phone: [facility] Work Phone: 08-09-2004 hepatitis B vaccine, adult dosage Pito Moya MD Work Phone: [facility] Work Phone: Payers Date Payer Category Payer Self-pay 2023 Private Health Insurance [employer] MED ICARE SUPPLEMENT [id number] 2023 Medicare [id number] 2022 Medicare [id number] 2022 Medicare [id number] 2018 Unknown [employer] PPO [id number] 2018-Present [phone] [address] [place] [address] PPO [id number] 2018 Unknown [id number] 2009 Unknown [id number] Unknown [id number] Unknown [id number] Unknown [id number] Unknown [id number] 462 Unknown [id number] 462 Unknown [id number] 462 Unknown [id number] 462 Unknown [id number] Unknown [id number] 462 Unknown [id number] 462 Unknown [id number] 462 Unknown [id number] Unknown [id number] 462 Social History Date Type Detail Facility Start: 01-09-2022 End: 03-13-2024 Tobacco smoking status NHIS Never smoked tobacco [facility] Start: 07-19-2021 End: 12-11-2023 Alcohol intake Current non-drinker of alcohol (finding) [facility] Start: 1955 Sex Assigned At Female [facility] Start: 07-09-2021 End: 03-11-2022 Exposure to SARS-CoV-2 (event) Not sure [facility] Start: 01-09-2022 Tobacco use and exposure Smoke less tobacco non-user [facility] Start: 09-18-2022 End: 10-19-2022 History of Social function [facility] Start: 09-18-2022 End: 10-19-2022 Tobacco use panel [facility] Adult Depression Screening Assessment 0 [facility] Start: 04-18-2021 Gender identity Identifies as female gender (finding) [facility] Start: 04-18-2021 Sexual orientation Heterosexual (fredy saba) [facility] Medical Equipment Procedure Code Equipment Code Equipment Origin al Text Equipment Identifier Dates [id number] Start: 11-14-2020 End: 07-10-2022 Comment on above: Tests blood sugars 2 times a day. E11.22; N18.3. No insulin. use 1 TEST STRIP to TEST BLOOD SUGAR twice a day Functional Status Date Assessment Result Facility 07-30-2014 Are you deaf, or do you have serious difficulty hearing No 07/30/2014 8:40 AM Grant Lopes LPN No [facility] 07-30-2014 Are you blind, or do you have serious difficulty seeing, even when wearing glasses No 07/30/2014 8:40 AM Grant Lopes LPN No [facility] 07-30-2014 Do you have serious difficulty walking or climbing stairs Yes 07/30/2014 8:40 AM Grant Lopes LPN Yes [facility] 07-30-2014 Do you have difficul ty dressing or bathing No 07/30/2014 8:40 AM Grant Lopes LPN No [facility] 07-30-2014 Because of a physica l, mental, or emotional condition, do you have difficulty doing errands alone such as visiting a physician's office or shopping No 07/30/2014 8:40 AM Grant Lopes LPN No [facility] Mental Status Date Assessment Result Facility 07-30-2014 Because of a physica l, mental, or emotional condition, do you have serious difficulty concentrating, remembering, or making decisions No 07/30/2014 8:40 AM Grant Lopes LPN No [facility] Clinical Notes 12-24-2019 to 09-08-2024 Tona Melendrez, Mammo Tech - 05/27/2024 9:10 AM Yazmin Gaviria MD - 12/11/2023 2:23 PM Karla - Coordinator, Mammography - 05/21/2023 12:13 PM EST Note Date & Type Note Facility 09-08-2024 Radiology Diagnostic study note [facility] Imaging Services [address] [place] [address] Head/Neck Soft Tissue MR#: [id number] Acct: [id number] Name: GEORGIE LEWIS Rep #: [id number] : 1955 F 68 From: Amanda Briones MD PCP: Dr. Keith Heart MD Status: REG CL I Study:Head/Neck Soft Tissue Date of Exam: 09/08/24 Exam# [id number] Ordering Dr: Mini Heart MD PROCEDURE: HEAD/NECK SOFT TISSUE 09/08/2024 REASON FOR EXAM: LOCALIZED SWELLING, MASS AND LUMP, NECK TECHNIQUE: Targeted soft tissue ultrasound of the right neck under the jaw COMPARISON: None US/Head/Neck Soft Tissue IMPRESSION: Probable lymph node within the region of interest at the right upper neck measuring 1.2 x 0.5 x 0.4 cm. Reading Location: [facility] CC: Dr. Keith Heart MD ~ Knot Picker Cloth: Signed [facility] 05-27-2024 History of Presen t illness Narrative Radiology Service Progress Note PATIENT NAME: Georgie Lewis DATE OF SERVICE: May 27, 2024 TIME: 9:12 AM PATIENT IDENTITY VERIFICATION COMPLETED USING TWO (2) IDENTIFIERS: Name and Date of confirmed by patient verbally. FALL SCREENING: Has the patient had 2 falls in the last year or 1 fall with injury or currently using an Ambulatory Assistive Device (Walker, Cane, Wheelchair, Crutches, etc.)? No PATIENT GENDER DATA: Assigned female at . status: : No status: NO. PATIENT RELEVANT IMPLANT DATA REVIEWED: Not Applicable PATIENT PRESENTS WITH AN IMPLANTABLE OR ATTACHED NURSERY TECHNICIAN: No RADIOLOGY DEPARTMENT: Mammography PERIPHERAL IV DATA: Not applicable SIGNED BY: Abdifatah Beltran May 27, 2024 9:12 AM documented in this encounter [facility] 05-27-2024 Note HNO ID: [id number] Author: TONA MELENDREZ Mammo Tech Service: ? Author Type: A R Collections Rep Type: Progress Notes Filed: 05/27/2024 09:12 Note Text: Radiology Service Progress Note PATIENT NAME: Georgie Lewis DATE OF SERVICE: May 27, 2024 TIME: 9:12 AM PATIENT IDENTITY VERIFICATION COMPLETED USING TWO (2) IDENTIFIERS: Name and Date of confirmed by patient verbally. FALL SCREENING: Has the patient had 2 falls in the last year or 1 fall with injury or currently using an Ambulatory Assistive Device (Walker, Cane, Wheelchair, Crutches, etc.)? No PATIENT GENDER DATA: Assigned female at . status: : No status: NO. PATIENT RELEVANT IMPLANT DATA REVIEWED: Not Applicable PATIENT PRESENTS WITH AN IMPLANTABLE OR ATTACHED NURSERY TECHNICIAN: No RADIOLOGY DEPARTMENT: Mammography PERIPHERAL IV DATA: Not applicable SIGNED BY: Tona Melendrez Purple Binder May 27, 2024 9:12 AM [facility] 12-11-2023 Note HNO ID: [id number] Author: YAZMIN FARLEY MD Service: ? Author Type: Physician Type: Progress Notes Filed: 12/11/2023 15:24 Note Text: Debora is a 68 year old who presents for a pelvic and breast exam Postmenopausal: yes HRT use: No. Last Pap: 09/25/2022 normal HPV: 09/20/2022 negative History of abnormal pap: No Last mammogram: 2023 abnormal, lipomas noted History of abnormal mammogram: No OB History T1 L1 SAB0 IAB0 Ectopic0 Multiple0 Live Births0 Property Condition Assessor History LMP: 07/17/2011, Postmenopausal Age at Menarche: Age at First : Age at Menopause: Property Condition Assessor History Comments: Sexual Activity: Yes; Male Contraception: Vasectomy PAST MEDICAL HISTORY No date: Allergic rhinitis due to other allergen No date: Benign hypertensive heart disease without heart failure No date: Gout 04/17/2010: Herpes labialis 07/23/2012: Hyperlipidemia LDL goal < 100 No date: Hypothyroidism 04/08/2003: Irregular menstrual cycle Comment: disordered proliferative endometrium No date: Lipomas 07/19/2012: Pancreatic cyst 06/18/2015: Type 2 diabetes mellitus with stage 3 chronic kidney disease (HCC)PAST SURGICAL HISTORY 06/02/04: ENDOMETRIAL BX W/WO ENDOCERVIX BX W/O DILAT SPX Comment: disordered endometrium No date: EXC CYST/ABERRANT BREAST TISSUE OPEN / LESION remote: PAST SURGICAL HISTORY OF Comment: sinus surgery 07-02-12: REM LESION TRUNK,ARM,LEG > 4.0CM FAMILY HISTORY Problem Relation Age of Onset Diabetes Father dialysis Hypertension Father Heart Father Hypertension Mother Lipids Mother Diabetes Son Diabetes Sister Diabetes Paternal Aunt Diabetes Paternal Uncle Diabetes Other niece SOCIAL HISTORY Social History Tobacco Use Smoking status: Never Smokeless tobacco: Never Vaping Use Vaping status: Never Used Substance Use Topics Alcohol use: No Drug use: No Allergies and current medication updated:Yes EXAM: BP 118/74 Ht 5' 3.75 (1.62m) Wt 247 lb (112.0kg) LMP 07/17/2011 BMI 42.74 kg/(m2). GENERAL: pleasant, female in no apparent distress HBREAST: soft, non-tender, symmetric, normal nipple-areolar complex, no lymphadenopathy, no nipple discharge, and multiple lipomas, mobile, soft CHEST: Normal inspiratory effort ABDOMEN: soft, non-tender, no hernia, no masses, and lipoma left side noted PELVIC: external genitalia normal, normal Bartholin's glands, urethra, [place]'s glands, no vulvar lesions, no cervical lesions, good vaginal support, physiologic discharge present, normal appearing perineal body and perianal region, limited by habitus, right mons w/ skin cyst BIMANUAL: uterus normal size, shape and consistency, no adnexal masses, non-tender, and limited by habitus RECTOVAGINAL: deferred. ASSESSMENT/PLAN: 1) Health maintenance: Pap/HPV screening no longer needed Mammogram ordered 2) Follow up one year or sooner as needed Yazmin Farley MD [facility] 12-11-2023 History of Presen t illness Narrative Debora is a 68 year old who presents for a pelvic and breast exam Postmenopausal: yes HRT use: No. Last Pap: 09/25/2022 normal HPV: 09/20/2022 negative History of abnormal pap: No Last mammogram: 2023 abnormal, lipomas noted History of abnormal mammogram: No OB History T1 L1 SAB0 IAB0 Ectopic0 Multiple0 Live Births0 Property Condition Assessor History LMP: 07/17/2011, Postmenopausal Age at Menarche: Age at First : Age at Menopause: Property Condition Assessor History Comments: Sexual Activity: Yes; Male Contraception: Vasectomy PAST MEDICAL HISTORY No date: Allergic rhinitis due to other allergen No date: Benign hypertensive heart disease without heart failure No date: Gout 04/17/2010: Herpes labialis 07/23/2012: Hyperlipidemia LDL goal < 100 No date: Hypothyroidism 04/08/2003: Irregular menstrual cycle Comment: disordered proliferative endometrium No date: Lipomas 07/19/2012: Pancreatic cyst 06/18/2015: Type 2 diabetes mellitus with stage 3 chronic kidney disease (HCC)PAST SURGICAL HISTORY 06/02/04: ENDOMETRIAL BX W/WO ENDOCERVIX BX W/O DILAT SPX Comment: disordered endometrium No date: EXC CYST/ABERRANT BREAST TISSUE OPEN LESION remote: PAST SURGICAL HISTORY OF Comment: sinus surgery 07-02-12: REM LESION TRUNK,ARM,LEG > 4.0CM FAMILY HISTORY Problem Relation Age of Onset Diabetes Father dialysis Hypertension Father Heart Father Hypertension Mother Lipids Mother Diabetes Son Diabetes Sister Diabetes Paternal Aunt Diabetes Paternal Uncle Diabetes Other niece SOCIAL HISTORY Social History Tobacco Use Smoking status: Never Smokeless tobacco: Never Vaping Use Vaping status: Never Used Substance Use Topics Alcohol use: No Drug use: No Allergies and current medication updated:Yes EXAM: BP 118/74 Ht 5' 3.75 (1.62m) Wt 247 lb (112.0kg) LMP 07/17/2011 BMI 42.74 kg/(m^2). GENERAL: pleasant, female in no apparent distress HBREAST: soft, non-tender, symmetric, normal nipple-areolar complex, no lymphadenopathy, no nipple discharge, and multiple lipomas, mobile, soft CHEST: Normal inspiratory effort ABDOMEN: soft, non-tender, no hernia, no masses, and lipoma left side noted PELVIC: external genitalia normal, normal Bartholin's glands, urethra, [place]'s glands, no vulvar lesions, no cervical lesions, good vaginal support, physiologic discharge present, normal appearing perineal body and perianal region, limited by habitus, right mons w/ skin cyst BIMANUAL: uterus normal size, shape and consistency, no adnexal masses, non-tender, and limited by habitus RECTOVAGINAL: deferred. ASSESSMENT/PLAN: 1) Health maintenance: Pap/HPV screening no longer needed Mammogram ordered 2) Follow up one year or sooner as needed Yazmin Farley MD documented in this encounter [facility] 05-21-2023 Miscellaneous Notes May 21, 2023 PID: [id number] Georgie Lewis [address] [place] [address] Dear Ms. Lewis, Your recent breast imaging exam on 05/21/2023 showed a possible finding that requires additional imaging studies for a complete evaluation. Most such findings are probably benign (not cancer). If you have a healthcare provider who ordered/prescribed your screening mammogram: Please call [phone] or [phone]: [phone] to schedule an appointment for your additional imaging (if you have not already done so). If you DO NOT have a healthcare provider (ie you did not have an order/prescription for your screening mammogram): Please call to schedule an appointment for your additional imaging (if you have not already done so). You must have an order/prescription from your physician when calling to schedule your appointment. If your order/prescription is not electronic, you must bring the hard copy with you on the day of your exam to avoid delays. Your imaging studies and reports are kept on file at [facility] as part of your permanent medical record, and are available for your continuing care. Thank you for allowing us to help in meeting your health care needs. Sincerely, Dr. Rodriguez Interpreting Radiologist [facility] (Additional imaging) documented in this encounter [facility] 05-21-2023 History of Presen t illness Narrative Radiology Service Progress Note PATIENT NAME: Georgie Lewis DATE OF SERVICE: May 21, 2023 TIME: 10:05 AM PATIENT IDENTITY VERIFICATION COMPLETED USING TWO (2) IDENTIFIERS: Name and Date of confirmed by patient verbally. FALL SCREENING: Has the patient had 2 falls in the last year or 1 fall with injury or currently using an Ambulatory Assistive Device (Walker, Cane, Wheelchair, Crutches, etc.)? No PATIENT GENDER DATA: Female. status: : No status: NO. PATIENT RELEVANT IMPLANT DATA REVIEWED: Not Applicable PATIENT PRESENTS WITH AN IMPLANTABLE OR ATTACHED NURSERY TECHNICIAN: No RADIOLOGY DEPARTMENT: Mammography PERIPHERAL IV DATA: Not applicable SIGNED BY: Abdifatah Okeefe May 21, 2023 10:05 AM documented in this encounter [facility] 10-23-2022 Miscellaneous Notes Patient notified and verbalized understanding Jordyn Mariano Cma Let patient know I spoke with pharmacist regarding her medications. I have sent over prescription for jardiance- take one tablet in the morning with breakfast along with her other medications. Update me in two weeks with blood sugar readings. Kerline Sanchez APRN.CNP documented in this encounter [facility] 10-19-2022 Miscellaneous Notes Patient calling needs referral for Nephrology faxed to [facility], Dr Bales in [place] at [phone]. Asking for last 3 office notes, last 3 labs, referral, face sheet, insurance card. Her appt is scheduled for 01/09/2023. Printed all items needed and faxed as requested. documented in this encounter [facility] 10-19-2022 History of Presen t illness Narrative 10/19/2022 Patient presents with: Physical SUBJECTIVE: This is a 66 year old that is here today for Above Complaints.. DIABETES MELLITUS: Ms. Lewis was last seen . Since our last visit she denies excessive thirst or increased frequency of urination, chest pain or dyspnea , numbness, tingling or pain in extremities, new or unusual visual symptoms, low sugar/hypoglycemic reactions, weight loss/gain, lightheadedness/dizziness, and bowel changes/loose stools. Follows a diabetic diet most of the time, some of the time. She is compliant with medication(s) and is tolerating med(s) without any side effects. She reports checking her glucose on a once a day schedule with sugars in the fasting less than 200 range. Patient's last HgA1C was Hemoglobin A1C (%) Date Value 10/13/2022 7.4 07/07/2022 6.4 05/20/2021 8.4 11/10/2020 7.2 ) Last Ophthalmology exam was within the past 6 months HYPERLIPIDEMIA: Patient is taking medications: Yes- misses dose about two times a week Patient is watching diet: somewhat. Patient denies myalgias: No. Patient denies gi upset: No HTN: Patient is compliant with meds Yes Monitors bp at home: No. Denies side effects: Yes. Chest pain: No. Dyspnea: No. Edema: No. Palpitations: No. Syncope: No. Headache: No Dizziness: No. GOUT: taking allopurinol as prescribed without side effects. No gout flares PAST MEDICAL HISTORY Diagnosis Date Allergic rhinitis due to other allergen Benign hypertensive heart disease without heart failure Gout Herpes labialis 04/17/2010 Hyperlipidemia LDL goal < 100 07/23/2012 Hypothyroidism Irregular menstrual cycle 04/08/2003 disordered proliferative endometrium Lipomas Pancreatic cyst 07/19/2012 Type 2 diabetes mellitus with stage 3 chronic kidney disease (HCC) 06/18/2015 ALLERGIES Adhesive Tape (Rosins), Levaquin [Levofloxacin], Seasonal [Other], and Zocor [Simvastatin] MEDICATIONS Current Outpatient Medications Medication Sig semaglutide (OZEMPIC) 2 mg/dose (8 mg/3 mL) pen injector Inject 2 mg subcutaneously one time a week. pravastatin (PRAVACHOL) 20 mg tablet Take 1 tablet by mouth daily at bedtime. blood sugar diagnostic (FREESTYLE LITE STRIPS) test strip use 1 TEST STRIP to TEST BLOOD SUGAR twice a day metFORMIN (GLUCOPHAGE) 500 mg tablet Take 1 tablet by mouth twice daily with meals. pioglitazone (ACTOS) 15 mg tablet Take 1 tablet by mouth once daily. lisinopril (ZESTRIL, PRINIVIL) 40 mg tablet Take 1 tablet by mouth once daily. glimepiride (AMARYL) 4 mg tablet Take 1 tablet by mouth twice daily with meals. levothyroxine (SYNTHROID) 75 mcg tablet Take 1 tablet by mouth once daily. Take on empty stomach. For Thyroid bisoprolol-hydroCHLOROthiazide (ZIAC) 2.5-6.25 mg per tablet Take 1 tablet by mouth twice daily. allopurinol (ZYLOPRIM) 300 mg tablet take 1 tablet by mouth once daily for GOUT triamcinolone acetonide (KENALOG) 0.1 % cream Apply 1 application to affected area three times daily. Apply sparingly to area for rash/itching. valACYclovir (VALTREX) 500 mg tablet Take 2 tablets by mouth twice daily. for one day as needed for episode of cold sores Blood-Glucose Meter (FREESTYLE FREEDOM LITE) monitoring kit 1 Each as needed. No current facility-administered medications for this visit. Medications and allergies reviewed by this provider. SOCIAL HISTORY Social History Tobacco Use Smoking status: Never Smokeless tobacco: Never Vaping Use Vaping Use: Never used Substance Use Topics Alcohol use: No Drug use: No REVIEW OF SYSTEMS All other reviewed and negative other than HPI. OBJECTIVE: BP 132/78 Pulse 86 Resp 16 Ht 161.8 cm (5' 3.7) Wt 114.3 kg (252 lb) LMP 07/17/2011 SpO2 98% BMI 43.66 kg/m . Vital signs reviewed by this provider. APPEARANCE Well appearing, alert, in no acute distress, well-hydrated, well nourished. EYES PERRLA, conjunctiva and sclera normal. EARS External ears normal, canals clear HEART RRR with normal S1 and S2, no murmurs, no gallops, no JVD appreciated LUNG clear to auscultation. No wheezes, rhonchi or rales EXTREMITIES Extremities normal, No deformities, No skin discoloration, and No edema SKIN Skin color, texture, turgor normal, no suspicious rashes or lesions Component Latest Ref Rng & Units 10/13/2022 Protein, Total 6.3 - 8.0 g/dL 6.8 Albumin 3.9 - 4.9 g/dL 3.8 (L) Calcium 8.5 - 10.2 mg/dL 9.3 Bilirubin, Total 0.2 - 1.3 mg/dL 0.2 Alkaline Phosphatase 34 - 123 U/L 85 AST 13 - 35 U/L 20 ALT 7 - 38 U/L 18 Glucose 74 - 99 mg/dL 180 (H) BUN 7 - 21 mg/dL 21 Creatinine 0.58 - 0.96 mg/dL 1.39 (H) Sodium 136 - 144 mmol/L 136 Potassium 3.7 - 5.1 mmol/L 4.6 Chloride 97 - 105 mmol/L 99 CO2 22 - 30 mmol/L 25 Anion Gap 9 - 18 mmol/L 12 eGFR >=60 mL/min/1.73m 42 (L) Hemoglobin A1C 4.3 - 5.6 % 7.4 (H) Estimated Average Glucose mg/dL 166 DEPRESSION ASSESSMENT Never done URINE ALBUMIN:CREATININE RATIO due on 05/20/2022 HEMOGLOBIN/HEMATOCRIT due on 05/20/2022 COLORECTAL CANCER SCREENING due on 06/03/2022 COVID-19 VACCINE(4 - Moderna series) due on 07/11/2023 PNEUMOCOCCAL(3 - PPSV23 or PCV20) due on 2022 INFLUENZA(1) due on 12/07/2022 HBA1C due on 04/15/2023 MAMMOGRAM due on 04/27/2023 DILATED RETINAL EXAM due on 06/23/2023 LDL CHOLESTEROL due on 07/08/2023 DIABETIC FOOT EXAM due on 07/11/2023 ANNUAL PCP TEAM CHRONIC DISEASE VISIT due on 07/11/2023 BP CONTROLLED (<130/80) due on 09/19/2023 SERUM CREATININE due on 10/14/2023 PAP TESTING due on 09/19/2027 HPV TESTING due on 09/19/2027 DTAP,TDAP,TD(3 - Td or Tdap) due on 09/20/2029 HEPATITIS C SCREENING Completed SHINGRIX VACCINE Completed HIV SCREENING Discontinued ASSESSMENT/PLAN: 1. Essential hypertension, benign - ICD9: 401.1, ICD10: I10 (primary diagnosis) - Controlled - Continue current medications - Recommend home blood pressure monitoring, to bring results to next visit - Encouraged sodium restriction, DASH or Mediterranean diet - Recommend regular aerobic exercise - Discussed need for and benefit of weight loss. BMI 43.66 kg/(m^2) - Follow up in 3 months or 6 months for hypertension visit - LISINOPRIL 40 MG TABLET - BISOPROLOL 2.5 MG-HYDROCHLOROTHIAZIDE 6.25 MG TABLET 2. 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 Type 2 diabetes mellitus with stage 3a chronic kidney disease, without long-term current use of insulin (HCC) - ICD9: 250.40, 585.3, ICD10: E11.22, N18.31 - Uncontrolled - Worsening control - Stop metformin - Counseled on healthy diet and regular exercise - Discussed need for and benefit of weight loss. BMI 43.66 kg/(m^2) - Discussed diabetic education issues of diabetes complications and monitoring required and hypoglycemic/hyperglycemic symptoms - Follow up in 3 months, sooner should any other issues arise. - eGFR: Worsening - Counseled on avoiding NSAIDs, adequate hydration - Counseled on low sodium diet - consult to nephrology per patient request - GLIMEPIRIDE 4 MG TABLET - CBC + DIFF - ALBUMIN/CREAT RATIO RND UR - HGB A1C - patient reluctant to increase actos due to weight gain. Will discuss adding farxiga with PCP 4. Screening for colon cancer - ICD9: V76.51, ICD10: Z12.11 - FECAL OCCULT BLOOD TEST 5. Stage 3b chronic kidney disease (HCC) - ICD9: 585.3, ICD10: N18.32 - eGFR: Worsening - Counseled on avoiding NSAIDs, adequate hydration - Counseled on low sodium diet - ACEi/ARB prescribed: lisinopril - CONSULT TO NEPHROLOGY 6. 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 - continue current dose of Synthroid 0.075 mg - Follow up in 6 months - TSH BLD Kerline Sanchez APRN.ERIC Prescription instructions reviewed with patient as applicable. Patient advised if symptoms do not improve or if symptoms worsen sooner, to contact their primary care physician. Potential red flag symptoms discussed with the patient. Reviewed appropriate action plan to take if red flag symptoms occur. Patient agreeable to treatment plan. I spent a total of 30 minutes on the date of the service which included preparing to see the patient, [id number] patient care, completing clinical documentation, obtaining and/or reviewing separately obtained history, performing a medically appropriate examination, counseling and educating the patient/family/caregiver, ordering medications, tests, or procedures, and communicating with other HCPs (not separately reported). documented in this encounter [facility] 07-10-2022 History of Presen t illness Narrative Chief Complaint Patient presents with: Follow Up: 6 month HPI Georgie Lewis is a 66 year old female who presents here today for Above Complaints. Denies hospitalizations or ER visits. DIABETES MELLITUS: Ms. Lewis was last seen 6 months ago. Since our last visit she denies excessive thirst or increased frequency of urination, numbness, tingling or pain in extremities, new or unusual visual symptoms. Notes that if she eats dinner after 7pm she will get hypoglycemia. Follows a diabetic diet most of the time. She is compliant with medication(s) and is tolerating med(s) without any side effects. She reports checking her glucose on a once a day schedule. 30 day average sugar 125. Patient's last HgA1C was Hemoglobin A1C (%) Date Value 07/07/2022 6.4 01/06/2022 6.7 05/20/2021 8.4 11/10/2020 7.2 ) Last Ophthalmology exam was within the past 12 months Last Podiatry exam was more than 12 months ago. Taking synthroid as prescribed without side effects. TSH in good range in the last 12 months. Asymptomatic. Was having muscle aches with the atorvastatin due to muscle aches. Switched to pravastatin. Taking every other day because she was forgetting. No side effects. BP well controlled on current regimen. No gout flares with allopurinol. Past medical history, appointments, medications, allergies reviewed. Previous Medical History PAST MEDICAL HISTORY Diagnosis Date Allergic rhinitis due to other allergen Benign hypertensive heart disease without heart failure Gout Herpes labialis 04/17/2010 Hyperlipidemia LDL goal < 100 07/23/2012 Hypothyroidism Irregular menstrual cycle 04/08/2003 disordered proliferative endometrium Lipomas Pancreatic cyst 07/19/2012 Type 2 diabetes mellitus with stage 3 chronic kidney disease (HCC) 06/18/2015 Previous Surgical History PAST SURGICAL HISTORY Procedure Laterality Date ENDOMETRIAL BX W/WO ENDOCERVIX BX W/O DILAT SPX 06/02/04 disordered endometrium EXC CYST/ABERRANT BREAST TISSUE OPEN 1/> LESION PAST SURGICAL HISTORY OF remote sinus surgery REM LESION TRUNK,ARM,LEG > 4.0CM 3 Family History FAMILY HISTORY Problem Relation Age of Onset Diabetes Father dialysis Hypertension Father Heart Father Hypertension Mother Lipids Mother Diabetes Son Diabetes Sister Diabetes Paternal Aunt Diabetes Paternal Uncle Diabetes Other niece Patient Allergies ALLERGIES Allergen Reactions Adhesive Tape (Michelle* Levaquin [Levofloxa* Intolerance Mental status changes, hypoglycemia Seasonal [Other] Zocor [Simvastatin] Other: See Comments muscle pain Current Medications Current Outpatient Medications on File Prior to Visit Medication Sig lisinopril (ZESTRIL, PRINIVIL) 40 mg tablet Take 1 tablet by mouth once daily. glimepiride (AMARYL) 4 mg tablet Take 1 tablet by mouth twice daily with meals. levothyroxine (SYNTHROID) 75 mcg tablet Take 1 tablet by mouth once daily. Take on empty stomach. For Thyroid pravastatin (PRAVACHOL) 20 mg tablet Take 1 tablet by mouth daily at bedtime. semaglutide (OZEMPIC) 2 mg/dose (8 mg/3 mL) pen injector Inject 2 mg subcutaneously one time a week. pioglitazone (ACTOS) 15 mg tablet Take 1 tablet by mouth once daily. metFORMIN (GLUCOPHAGE) 1,000 mg tablet Take 1 tablet by mouth twice daily with meals. bisoprolol-hydroCHLOROthiazide (ZIAC) 2.5-6.25 mg per tablet Take 1 tablet by mouth twice daily. blood sugar diagnostic (FREESTYLE LITE STRIPS) test strip use 1 TEST STRIP to TEST BLOOD SUGAR twice a day allopurinol (ZYLOPRIM) 300 mg tablet take 1 tablet by mouth once daily for GOUT triamcinolone acetonide (KENALOG) 0.1 % cream Apply 1 application to affected area three times daily. Apply sparingly to area for rash/itching. valACYclovir (VALTREX) 500 mg tablet Take 2 tablets by mouth twice daily. for one day as needed for episode of cold sores Blood-Glucose Meter (FREESTYLE FREEDOM LITE) monitoring kit 1 Each as needed. No current facility-administered medications on file prior to visit. Social History Social History Tobacco Use Smoking status: Never Smokeless tobacco: Never Vaping Use Vaping Use: Never used Substance Use Topics Alcohol use: No Drug use: No Review of Symptoms REVIEW OF SYSTEMS GENERAL: No weight loss, malaise or fevers RESPIRATORY: Negative for cough, hemoptysis, wheezing, COPD, dyspnea or shortness of breath CARDIOVASCULAR: Negative for chest pain, leg swelling, hypertension, CHF or palpitations GI: No nausea, vomiting, or diarrhea SKIN: Negative for lesions, rash, and itching EXAM: BP 112/68 Pulse 85 Resp 16 Wt 116.3 kg (256 lb 6.4 oz) LMP 07/17/2011 SpO2 98% BMI 44.01 kg/m General Appearance: Well appearing, alert, in no acute distress, well-hydrated, well nourished.. Skin: Skin color, texture, turgor normal, no suspicious rashes or lesions. Lungs: Lungs clear to auscultation. No wheezing, rhonchi, rales.. Heart: RRR without murmur, gallop, or rubs. No ectopy. Abdomen: Normal abdominal exam, Abdomen soft, non-tender. Bowel sounds normal. No masses, organomegaly. Extremities: No deformities, edema, skin discoloration, clubbing or cyanosis. Good capillary refill. . Feet: Shoes and socks removed, No deformities, ulcers, calluses, normal distal pulses, and sensitive to 10 gm monofilament Health Maintenance List BP CONTROLLED (<130/80) Never done COVID-19 VACCINE(4 - Booster for Moderna series) due on 05/11/2021 DEPRESSION ASSESSMENT Never done URINE ALBUMIN:CREATININE RATIO due on 05/20/2022 HEMOGLOBIN/HEMATOCRIT due on 05/20/2022 DIABETIC FOOT EXAM due on 05/29/2022 COLORECTAL CANCER SCREENING due on 06/03/2022 PAP TESTING due on 01/06/2023 HPV TESTING due on 01/06/2023 PNEUMOCOCCAL(3 - PPSV23 if available, else PCV20) due on 2022 HBA1C due on 01/06/2023 ANNUAL PCP TEAM CHRONIC DISEASE VISIT due on 01/09/2023 MAMMOGRAM due on 04/27/2023 DILATED RETINAL EXAM due on 06/23/2023 LDL CHOLESTEROL due on 07/08/2023 SERUM CREATININE due on 07/08/2023 DTAP,TDAP,TD(3 - Td or Tdap) due on 09/20/2029 INFLUENZA Completed HEPATITIS C SCREENING Completed SHINGRIX VACCINE Completed HIV SCREENING Discontinued Data reviewed Component Latest Ref Rng & Units 09/22/2021 01/06/2022 07/07/2022 Protein, Total 6.3 - 8.0 g/dL 6.9 7.0 Albumin 3.9 - 4.9 g/dL 4.3 3.9 Calcium 8.5 - 10.2 mg/dL 9.6 9.0 Bilirubin, Total 0.2 - 1.3 mg/dL 0.4 0.3 Alkaline Phosphatase 34 - 123 U/L 81 82 AST 13 - 35 U/L 19 23 ALT 7 - 38 U/L 16 17 Glucose 74 - 99 mg/dL 153 (H) 169 (H) BUN 7 - 21 mg/dL 17 19 Creatinine 0.58 - 0.96 mg/dL 1.24 (H) 1.28 (H) Sodium 136 - 144 mmol/L 137 133 (L) Potassium 3.7 - 5.1 mmol/L 4.6 4.3 Chloride 97 - 105 mmol/L 99 98 CO2 22 - 30 mmol/L 27 26 Anion Gap 9 - 18 mmol/L 11 9 eGFR >=60 mL/min/1.73m 49 (L) 47 (L) Cholesterol, Total <200 mg/dL 171 Triglyceride <150 mg/dL 274 (H) HDL Cholesterol >39 mg/dL 35 (L) Non HDL Cholesterol <130 mg/dL 136 (H) Fasting Time hrs 14 VLDL Cholesterol <30 mg/dL 55 (H) TC:HDL Ratio <5.10 4.89 LDL Cholesterol <100 mg/dL 81 LDL:HDL Ratio <2.54 2.31 Hemoglobin A1C 4.3 - 5.6 % 6.7 (H) 6.4 (H) Estimated Average Glucose mg/dL 146 137 TSH 0.270 - 4.200 mIU/L 2.680 Free T4 0.9 - 1.7 ng/dL 1.3 ASSESSMENT/PLAN: 1. Type 2 diabetes mellitus with stage 3a chronic kidney disease, without long-term current use of insulin (HCC) - ICD9: 250.40, 585.3, ICD10: E11.22, N18.31 (primary diagnosis) Controlled. Decrease metformin to 500 mg BID due to GFR <60 but above 45. If GFR goes <45, would discontinue. Continue to work on low carb diet and exercise. F/u in 3 months. - FREESTYLE LITE STRIPS - HGB A1C - COMP METABOLIC PANEL - PIOGLITAZONE 15 MG TABLET - CBC + DIFF - ALBUMIN/CREAT RATIO RND UR 2. Stage 3a chronic kidney disease (HCC) - ICD9: 585.3, ICD10: N18.31 - eGFR: Stable - Counseled on avoiding regular use of NSAIDs, adequate hydration, potential risk of IV dye - Recommend maintaining A1c < 7% - Counseled on renal diet (low sodium/low potassium/low phosphorus) 3. 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 - continue current dose of Synthroid 0.075 mg 4. Essential hypertension, benign - ICD9: 401.1, ICD10: I10 - good control - Continue current medication(s) - Encouraged dietary sodium restriction/DASH diet - Recommended regular aerobic exercise. - Reviewed risks of HTN and principles of treatment - Goal of BP <140/90 5. Chronic gout involving toe without tophus, unspecified cause, unspecified laterality - ICD9: 274.02, ICD10: [id number].[id number] No recent flares on allopurinol. 6. Hyperlipidemia with target LDL less than 100 - ICD9: 272.4, ICD10: E78.5 - good control - Continue current medication. - Encouraged following a low fat, low cholesterol diet. - Discussed the benefits of regular aerobic exercise and weight loss. Pito Moya MD documented in this encounter [facility] 06-09-2022 Miscellaneous Notes Call placed to patient and provider message reviewed. Patient verbalizes understanding and very thankful. Kassi Tavares RN Rx sent. Follow up if worsens or continues. Patient calls to report that she has been taking doxycycline since 06/07/22 for sinobronchitis and each time she takes it she has diarrhea or vomiting. Patient has tried taking with food, on an empty stomach, and is taking a probiotic. Symptoms continue: sinus congestion and drainage, cough with yellow mucus. Patient asking if provider would send in a different antibiotic to [facility]. Patient decline EC visit unless provider recommends. Please review and advise, Kassi Tavares RN documented in this encounter [facility] 06-07-2022 History of Presen t illness Narrative Subjective HPI HPI Georgie Lewis is a 66 year old female who presents today for CC of cough, congestion, sore throat. This started 1 week ago/worsening now. Has tried otc medication without relief. Symptoms are worsened by nothing. Risk factors sick exposures at home. .Patient presents with: Pain, Throat: Pt reported cough,throat redness, [place], x1 wk. PAST MEDICAL HISTORY Diagnosis Date Allergic rhinitis due to other allergen Benign hypertensive heart disease without heart failure Gout Herpes labialis 04/17/2010 Hyperlipidemia LDL goal < 100 07/23/2012 Hypothyroidism Irregular menstrual cycle 04/08/2003 disordered proliferative endometrium Lipomas Pancreatic cyst 07/19/2012 Type 2 diabetes mellitus with stage 3 chronic kidney disease (HCC) 06/18/2015 PAST SURGICAL HISTORY Procedure Laterality Date ENDOMETRIAL BX W/WO ENDOCERVIX BX W/O DILAT SPX 06/02/04 disordered endometrium EXC CYST/ABERRANT BREAST TISSUE OPEN 1/> LESION PAST SURGICAL HISTORY OF remote sinus surgery REM LESION TRUNK,ARM,LEG > 4.0CM 3-13 ALLERGIES Adhesive Tape (Rosins), Levaquin [Levofloxacin], Seasonal [Other], and Zocor [Simvastatin] MEDICATIONS lisinopril (ZESTRIL, PRINIVIL) 40 mg tablet Take 1 tablet by mouth once daily. glimepiride (AMARYL) 4 mg tablet Take 1 tablet by mouth twice daily with meals. levothyroxine (SYNTHROID) 75 mcg tablet Take 1 tablet by mouth once daily. Take on empty stomach. For Thyroid pravastatin (PRAVACHOL) 20 mg tablet Take 1 tablet by mouth daily at bedtime. semaglutide (OZEMPIC) 2 mg/dose (8 mg/3 mL) pen injector Inject 2 mg subcutaneously one time a week. pioglitazone (ACTOS) 15 mg tablet Take 1 tablet by mouth once daily. metFORMIN (GLUCOPHAGE) 1,000 mg tablet Take 1 tablet by mouth twice daily with meals. bisoprolol-hydroCHLOROthiazide (ZIAC) 2.5-6.25 mg per tablet Take 1 tablet by mouth twice daily. blood sugar diagnostic (FREESTYLE LITE STRIPS) test strip use 1 TEST STRIP to TEST BLOOD SUGAR twice a day allopurinol (ZYLOPRIM) 300 mg tablet take 1 tablet by mouth once daily for GOUT triamcinolone acetonide (KENALOG) 0.1 % cream Apply 1 application to affected area three times daily. Apply sparingly to area for rash/itching. valACYclovir (VALTREX) 500 mg tablet Take 2 tablets by mouth twice daily. for one day as needed for episode of cold sores Blood-Glucose Meter (FREESTYLE FREEDOM LITE) monitoring kit 1 Each as needed. doxycycline monohydrate 100 mg tablet Take 1 tablet by mouth twice daily for 7 days. FAMILY HISTORY Problem Relation Age of Onset Diabetes Father dialysis Hypertension Father Heart Father Hypertension Mother Lipids Mother Diabetes Son Diabetes Sister Diabetes Paternal Aunt Diabetes Paternal Uncle Diabetes Other niece Social History Tobacco Use Smoking status: Never Smokeless tobacco: Never Vaping Use Vaping Use: Never used Substance Use Topics Alcohol use: No Drug use: No Review of Systems Constitutional: Positive for chills and malaise/fatigue. Negative for fever. HENT: Positive for congestion and sore throat. Negative for ear pain and nosebleeds. Respiratory: Positive for cough and sputum production. Negative for shortness of breath and wheezing. Cardiovascular: Negative for chest pain. Musculoskeletal: Negative for neck pain. Skin: Negative for itching and rash. Objective Blood pressure 130/78, pulse 87, temperature 37.2 C (98.9 F), temperature source Tympanic, resp. rate 16, weight 115.8 kg (255 lb 6.4 oz), last menstrual period 07/17/2011, SpO2 98 %. Physical Exam Constitutional: General: She is not in acute distress. Appearance: She is not toxic-appearing or diaphoretic. HENT: Head: Normocephalic and atraumatic. Nose: Nose normal. Mouth/Throat: Pharynx: Uvula midline. No pharyngeal swelling, oropharyngeal exudate, posterior oropharyngeal erythema or uvula swelling. Eyes: General: Lids are normal. No scleral icterus. Right eye: No discharge. Left eye: No discharge. Conjunctiva/sclera: Conjunctivae normal. Pupils: Pupils are equal, round, and reactive to light. Neck: Trachea: Trachea normal. Cardiovascular: Rate and Rhythm: Normal rate and regular rhythm. Heart sounds: Normal heart sounds. Pulmonary: Effort: Pulmonary effort is normal. Breath sounds: Rhonchi (scattered bilat, clear with cough.) present. No decreased breath sounds, wheezing or rales. Musculoskeletal: Cervical back: Normal range of motion and neck supple. Lymphadenopathy: Cervical: No cervical adenopathy. Right cervical: No superficial cervical adenopathy. Left cervical: No superficial cervical adenopathy. Skin: Findings: No rash. Neurological: Mental Status: She is alert and oriented to person, place, and time. ASSESSMENT/PLAN: 1. Sinobronchitis - ICD9: 473.9, 490, ICD10: J32.9, J40 (primary diagnosis) - Will begin treatment with as per antibiotic as written, see orders - Supportive care with plenty of fluids, rest, and analgesia prn. - Follow up in 3-5 days if symptoms persist or worsen. - DOXYCYCLINE MONOHYDRATE 100 MG TABLET 2. Throat pain - ICD9: 784.1, ICD10: R07.0 Neg strep - STREP A MOLECULAR (POC) Reggie Keating APRN.CNP Additional Medical Conditions Last edited 06/07/22 11:01 EST by Reggie Keating APRN.MUD MIXER OPERATOR documented in this encounter [facility] 06-06-2022 Miscellaneous Notes Patient has been identified by name and date of : Yes Requested Prescriptions Pending Prescriptions Disp Refills lisinopril (ZESTRIL, PRINIVIL) 40 mg tablet 90 tablet 1 Sig: Take 1 tablet by mouth once daily. RX INSTRUCTIONS: Patient aware RX will be sent to pharmacy. No need to notify patient. [facility] 01/09/22 with Kerline SHELTON 07/10/22 Sara Vincent MA documented in this encounter [facility] 05-31-2022 Miscellaneous Notes Patient phones requesting refills as follows: Requested Prescriptions Pending Prescriptions Disp Refills glimepiride (AMARYL) 4 mg tablet 180 tablet 1 Sig: Take 1 tablet by mouth twice daily with meals. [facility]-01/09/22 Labs-01/06/22 NOV-07/10/22 med filled 8/23/22 Please review and advise. Myriam Frias LPN documented in this encounter [facility] 05-31-2022 Miscellaneous Notes Patient phones requesting refills as follows: Requested Prescriptions Pending Prescriptions Disp Refills levothyroxine (SYNTHROID) 75 mcg tablet 90 tablet 3 Sig: Take 1 tablet by mouth once daily. Take on empty stomach. For Thyroid [facility]-01/09/22 Labs-01/06/22Feb-07/10/22 med filled 05/29/21 Please review and advise. Myriam Frias LPN documented in this encounter [facility] 05-31-2022 Evaluation note Diagnosis Type 2 diabetes mellitus with stage 3a chronic kidney disease, without long-term current use of insulin (HCC) documented in this encounter [facility]01-21-2023 Miscellaneous Notes* Letter - Mammography Coordinator - 04/28/2022 8:53 AM EST April 30, 2022 PID: [id number] Georgie Lewis [address] [place] [id number] Dear Ms. Lewis, We are pleased to inform you that the results of your recent breast imaging exam on 04/27/2022 are normal. Early detection of cancer is very important. We also understand recommendations regarding breast cancer screening are controversial. Please discuss with your primary care provider which strategy is best for you and whether a mammogram is right for you. Your imaging studies and report will be kept on file at [facility] as part of your permanent medical record and are available for your continuing care. Thank you for allowing us to help in meeting your health care needs. Sincerely, Dr. Watts Interpreting Radiologist [facility] (Normal over 40) [facility] Miscellaneous Notes* Telephone Encounter - Myriam Frias LPN - 04/24/2022 8:16 AM EST Patient phones requesting refills as follows: Requested Prescriptions Pending Prescriptions Disp Refills pravastatin (PRAVACHOL) 20 mg tablet 30 tablet 1 Sig: Take 1 tablet by mouth daily at bedtime. [facility]-01/09/22 Labs-01/06/22 NOV-07/10/22 med filled 01/16/22 Please review and advise. Myriam Frias LPN [facility] Miscellaneous Notes* Telephone Encounter - Jaelyn Abraham - 03/12/2022 2:26 PM EST Patient given results and verbalized understanding of instructions given. Jaelyn Abraham * Telephone Encounter - Jaelyn Abraham - 03/12/2022 2:26 PM EST ----- Message from Debora Marshall APRN.CNP sent at 03/12/2022 12:29 PM EST ----- Urine culture did not show clear evidence of infection. She may continue to take antibiotic if it has been helpful. Recommend follow up with PCP to ensure hematuria has resolved. Debora Marshall CNP [facility] History of Present illness Narrative* Debora Marshall APRN.ERIC - 03/11/2022 1:40 PM EST Subjective HPI Georgie Lewis is a 66 year old female who presents with urinary frequency, dysuria, andblood in her urine for the past 2 days. She has not had a fever, chills, or nausea or vomiting. Shedenies any back pain or abdominal pain. Review of Systems Constitutional: Negative for chills and fever. Respiratory: Negative. Cardiovascular: Negative. Gastrointestinal: Negative for abdominal pain, nausea and vomiting. Genitourinary: Positive for dysuria, frequency and hematuria. Musculoskeletal: Negative for back pain. BP 122/74 Pulse 92 Temp 36.2 C (97.1 F) Wt 113.7 kg (250 lb 9.6 oz) LMP 07/17/2011 SpO2 97% BMI 43.02 kg/m PAST MEDICAL HISTORY Diagnosis Date Allergic rhinitis due to other allergen Benign hypertensive heart disease without heart failure Gout Herpes labialis 04/17/2010 Hyperlipidemia LDL goal < 100 07/23/2012 Hypothyroidism Irregular menstrual cycle 04/08/2003 disordered proliferative endometrium Lipomas Pancreatic cyst 07/19/2012 Type 2 diabetes mellitus with stage 3 chronic kidney disease (HCC) 06/18/2015 PAST SURGICAL HISTORY Procedure Laterality Date ENDOMETRIAL BX W/WO ENDOCERVIX BX W/O DILAT SPX 06/02/04 disordered endometrium EXC CYST/ABERRANT BREAST TISSUE OPEN 1/> LESION PAST SURGICAL HISTORY OF remote sinus surgery REM LESION TRUNK,ARM,LEG > 4.0CM 3--13 ALLERGIES Adhesive Tape (Rosins), Levaquin [Levofloxacin], Seasonal [Other], and Zocor [Simvastatin] MEDICATIONS semaglutide (OZEMPIC) 2 mg/dose (8 mg/3 mL) pen injector Inject 2 mg subcutaneously one time a week. pravastatin (PRAVACHOL) 20 mg tablet Take 1 tablet by mouth daily at bedtime. pioglitazone (ACTOS) 15 mg tablet Take 1 tablet by mouth once daily. metFORMIN (GLUCOPHAGE) 1,000 mg tablet Take 1 tablet by mouth twice daily with meals. bisoprolol-hydroCHLOROthiazide (ZIAC) 2.5-6.25 mg per tablet Take 1 tablet by mouth twice daily. blood sugar diagnostic (FREESTYLE LITE STRIPS) test strip use 1 TEST STRIP to TEST BLOOD SUGAR twice a day allopurinol (ZYLOPRIM) 300 mg tablet take 1 tablet by mouth once daily for GOUT glimepiride (AMARYL) 4 mg tablet Take 1 tablet by mouth twice daily with meals. lisinopril (ZESTRIL, PRINIVIL) 40 mg tablet Take 1 tablet by mouth once daily. levothyroxine (SYNTHROID) 75 mcg tablet Take 1 tablet by mouth once daily. Take on empty stomach. For Thyroid triamcinolone acetonide (KENALOG) 0.1 % cream Apply 1 application to affected area three times daily. Apply sparingly to area for rash/itching. valACYclovir (VALTREX) 500 mg tablet Take 2 tablets by mouth twice daily. for one day as needed forepisode of cold sores Blood-Glucose Meter (FREESTYLE FREEDOM LITE) monitoring kit 1 Each as needed. cephALEXin (KEFLEX) 500 mg capsule Take 1 capsule by mouth three times daily for 7 days. FAMILY HISTORY Problem Relation Age of Onset Diabetes Father dialysis Hypertension Father Heart Father Hypertension Mother Lipids Mother Diabetes Son Diabetes Sister Diabetes Paternal Aunt Diabetes Paternal Uncle Diabetes Other niece Social History Tobacco Use Smoking status: Never Smokeless tobacco: Never Vaping Use Vaping Use: Never used Substance Use Topics Alcohol use: No Drug use: No Objective Physical Exam Vitals and nursing note reviewed. Constitutional: Appearance: She is obese. HENT: Mouth/Throat: Pharynx: Uvula midline. Cardiovascular: Rate and Rhythm: Normal rate and regular rhythm. Heart sounds: Normal heart sounds. Pulmonary: Effort: Pulmonary effort is normal. No respiratory distress. Breath sounds: Normal breath sounds. No wheezing or rales. Abdominal: General: There is no distension. Palpations: There is no mass. Tenderness: There is no abdominal tenderness. There is no right CVA tenderness, left CVA tendernessor guarding. Skin: General: Skin is warm and dry. Findings: No erythema or rash. Neurological: Mental Status: She is alert. ASSESSMENT/PLAN: 1. Urinary frequency - ICD9: 788.41, ICD10: R35.0 acute - UA positive for jonathon esterase, hematuria, and proteinuria - Send urine for culture - Begin treatment with cephalexin for 7 days - Patient education for prevention given - UA DIP, URINE (POC) - URINE CULTURE - CEPHALEXIN 500 MG CAPSULE - Follow-up with your PCP in 3-5 days if symptoms have not improved or sooner if symptoms worsen - Discussed red flags and need for immediate medical evaluation if any occur. - Discussed supportive care treatment with fluids, rest and analgesia. - Discussed expected course of illness Debora Marshall APRN.CNP [facility] Instructions* Patient Instructions* Debora Marshall APRN.CNP - 03/11/2022 1:37 PM EST ASSESSMENT/PLAN: 1. Urinary frequency - ICD9: 788.41, ICD10: R35.0 acute - UA positive for jonathon esterase, hematuria, and proteinuria - Send urine for culture - Begin treatment with cephalexin for 7 days - Patient education for prevention given - UA DIP, URINE (POC) - URINE CULTURE - CEPHALEXIN 500 MG CAPSULE - Follow-up with your PCP in 3-5 days if symptoms have not improved or sooner if symptoms worsen - Discussed red flags and need for immediate medical evaluation if any occur. - Discussed supportive care treatment with fluids, rest and analgesia. - Discussed expected course of illness Debora Marshall APRN.MUD MIXER OPERATOR [facility] PATIENT INFO BLADDER INFECTION OVERVIEW Bladder infections are one of the most common infections, causing symptoms of burning with urination and needing to urinate frequently. A bladder infection is a type of urinary tract infection (UTI).Bladder infections are more common is women than men. Most women have an uncomplicated bladder infection that is easily treated with a short course of antibiotics. In men, bladder infections may alsoaffect the prostate gland, and a longer course of treatment may be needed. BLADDER INFECTION CAUSES The urinary tract includes the kidneys (which filter urine), ureters (the tube that carries urine from the kidneys to the bladder), the bladder (which stores urine), and urethra (the tube that carries urine out of the bladder). Bacteria do not normally live in these areas. However, bacteria normally live close to the urethra in women and men who are not circumcised. Bladder infections occur when bacteria travel up the urethra into the bladder. Factors that increase the risk of developing a bladder infection include: Vaginal sex Use of spermicides History of past bladder infections Diabetes In men, not being circumcised or having anal sex increase the risk of bladder infections. BLADDER INFECTION SYMPTOMS The typical symptoms of a bladder infection include: Pain or burning when urinating Frequent need to urinate Urgent need to urinate Blood in the urine Fever, back pain, nausea, or vomiting are not common symptoms of a bladder infection, but can occurin people with a kidney infection (pyelonephritis). If you have these symptoms, you should call your doctor or nurse immediately. Is it a bladder infection or something else? -- Burning with urination can also occur in people with vaginitis (eg, yeast infection) or urethritis (inflammation of the urethra). For this reason, it is important to call your healthcare provider before assuming you have a bladder infection. BLADDER INFECTION DIAGNOSIS Simple bladder infections are usually diagnosed based upon your symptoms alone. However, most patients, especially those who have bladder infection symptoms for the first time, should see a healthcare provider for urine testing. Urine culture -- A urine culture is a test that uses a sample of urine to try and grow bacteria in a laboratory. It usually requires about 48 hours to get results. However, a urine culture is not always required to diagnose a bladder infection. Urine culture is often recommended if: You have never had a bladder infection before You have symptoms that are not typical for bladder infection You have had resistant bladder infections before You have frequent bladder infections You do not begin to feel better within 24 to 48 hours after starting antibiotics You are BLADDER INFECTION TREATMENT Bladder infection -- In young, healthy adolescents and adults with a bladder infection, the usual treatment includes a three to seven day course of antibiotics. The typical drugs chosen are: trimethoprim-sulfamethoxazole (Bactrim ), nitrofurantoin (Macrobid ), ciprofloxacin (Cipro ) or levofloxacin (Levaquin ). In men, the infection may involve your prostate gland and treatment is usually given for at least 7days. Your symptoms should begin to resolve within one day after starting treatment. It is important to take the full course of antibiotics to completely eliminate the infection. If your symptoms persist for more than two or three days after starting treatment, call your healthcare provider. If needed, you can take a prescription medication that numbs the bladder and urethra (phenazopyridine [Pyridium ]) to reduce the burning pain of some UTIs. A similar medication is available without aprescription (eg, Uristat). Both medications change the color of the urine (usually blue or orange)and can interfere with laboratory testing. You should not take these medications for more than 48 hours due to the risk of side effects. These medications do not treat the infection and must be takenalong with an antibiotic. Some providers recommend drinking more fluids while treating bladder infections to help flush bacteria from the bladder. Others believe that drinking more fluids may dilute the antibiotic in the bladder and make the medication less effective. No studies have been performed to address this issue. There are also no good studies on the effectiveness of cranberry juice for treating a bladder infection; we do not recommend using cranberry juice to treat bladder infections. Follow-up care -- Follow-up testing is not needed in healthy, young men or women with a bladder infection if symptoms resolve. women are usually asked to have a repeat urine culture one to two weeks after treatment has ended to make sure the bacteria are no longer in the urine. RECURRENT BLADDER INFECTIONS Bladder infections versus other causes -- Some adults, especially women, develop bladder infectionsfrequently. In this case, it is important to confirm that your symptoms (eg, pain or burning, frequency, and urgency) are caused by a bladder infection. Symptoms are usually similar from one infection to another. The best way to confirm an infection is to have a urine culture. If your urine culture is negative for infection, other causes of pain, burning, and frequency should be investigated. There is no reason to take antibiotics if your urine culture is negative. Need for further testing -- If you continue to develop bladder infections, you may require further testing. If you continue to notice blood in your urine after your bladder infection has cleared, you should have further testing. Preventing recurrent UTIs -- Women with recurrent urinary tract infections may be advised to take steps to prevent bladder infections, including one or more of the following: Changes in control -- Women who develop frequent bladder infections and use spermicides, particularly those who also use a diaphragm, may be encouraged to use an alternate method of control. Cranberry products -- Taking cranberry juice or cranberry tablets has been promoted as one way to help prevent frequent bladder infections. However, this has not been proven. Drinking more fluid and urinating after intercourse -- Although studies have not proven that drinking more fluids or urinating soon after intercourse can prevent infection, some healthcare providers recommend these measures since they are not harmful. Drinking more fluid may help to wash out bacteria that enter the bladder. Postmenopausal women -- Postmenopausal women who develop recurrent bladder infections may benefit from using vaginal estrogen. Vaginal estrogen is available in a flexible ring that is worn in the vagina for three months (eg, Estring ), a small tablet (Vagifem ), or a cream (eg, Premarin or Estrace ). Vaginal estrogen is discussed in more detail in a separate topic review. Antibiotics -- A preventive antibiotic treatment may be recommended if you repeatedly develop bladder infections and have not responded to other preventive measures. Antibiotics are highly effective in preventing recurrent bladder infections and can be taken in several different ways. Preventive antibiotic -- You can take a low dose of an antibiotic once per day or three times per week for six months to several years. Antibiotics following intercourse -- In women who develop urinary tract infections after sex, taking a single low dose antibiotic after intercourse can help to prevent bladder infections. Self-treatment -- A plan to begin antibiotics at the first sign of a bladder infection may be recommended in some situations. Before starting this regimen, it is important that you have had testing (urine cultures) to confirm that your symptoms are caused by a bladder infection; some people have symptoms of a bladder infection but do not actually have an infection. [facility] Miscellaneous Notes* Telephone Encounter - Myriam Frias LPN - 03/07/2022 11:44 AM EST Patient phones requesting refills as follows: Requested Prescriptions Pending Prescriptions Disp Refills semaglutide (OZEMPIC) 2 mg/dose (8 mg/3 mL) pen injector 3 mL 5 Sig: Inject 2 mg subcutaneously one time a week. ERICH-01/09/22 Labs-01/06/22 NOV-07/10/22 med filled 09/26/21 Please review and advise. Myriam Frias LPN documented in this encounterL[facility]10-31-2022 Miscellaneous Notes* Telephone Encounter - Jaelyn Abraham - 02/05/2022 7:28 AM EDT Patient given results and verbalized understanding of instructions given. Jaelyn Abraham * Telephone Encounter - Jaelyn Abraham - 02/05/2022 7:26 AM EDT ----- Message from Debora Marshall APRN.MUD MIXER OPERATOR sent at 02/05/2022 7:24 AM EDT ----- Please advise patient the COVID test was negative but she tested positive for Influenza A. Supportive care is indicated. She has been having symptoms for 5+ plus so antiviral medication is not indicated. Follow instructions given by provider at visit, f/u with PCP if symptoms persist or worsen. documented in this encounterL[facility]10-30-[facility]22 History of Present illness Narrative* Jennifer Austin APRN.MUD MIXER OPERATOR - 02/04/2022 9:50 AM EDT CC: Patient presents with: Sinus Problem: sinus pressure, drainage, headache, tired and bodyaches, sore throat x 5 days HPI: Georgie Lewis is a 66 year old female who presents to the office with complaint of head congestion, sore throat, and sinus symptoms for 5 days. Symptoms are worsening Associated symptoms includes sore throat and body aches. Denies fever, nausea, vomiting , and diarrhea. Treatments tried include nothing so far. with no relief of symptoms. Sick contacts: unknown. History of asthma, frequent episodes of bronchitis, chronic bronchitis, bronchiectasis or COPD: No Smoker: No Seasonal/environmental allergies: No The ROS is otherwise negative. The patient's pmh, medications, allergies, and past visits are reviewed. PHYSICAL EXAM: BP 134/68 Pulse 110 Temp 37.5 C (99.5 F) Resp 16 Wt 112.5 kg (248 lb) LMP 07/17/2011 SpO2 96% BMI 42.57 kg/m General appearance: alert, cooperative, pleasant, in no acute distress Head: Normocephalic Eyes: EOM's intact, conjunctiva pink and moist, no icterus, sclera white, non-injected Ears: Right ear: External ear/canal- Normal, TM - clear with good landmarks. Left ear: External ear/canal- Normal, TM - clear with good landmarks Oropharynx:moderate erythema, without exudates present Heart: Negative. RRR without obvious murmur, gallop, or rubs. No ectopy. Lungs: clear to auscultation, without rales or wheeze, good air exchange PAST MEDICAL HISTORY Diagnosis Date Allergic rhinitis due to other allergen Benign hypertensive heart disease without heart failure Gout Herpes labialis 04/17/2010 Hyperlipidemia LDL goal < 100 07/23/2012 Hypothyroidism Irregular menstrual cycle 04/08/2003 disordered proliferative endometrium Lipomas Pancreatic cyst 07/19/2012 Type 2 diabetes mellitus with stage 3 chronic kidney disease (HCC) 06/18/2015 PAST SURGICAL HISTORY Procedure Laterality Date ENDOMETRIAL BX W/WO ENDOCERVIX BX W/O DILAT SPX 06/02/04 disordered endometrium EXC CYST/ABERRANT BREAST TISSUE OPEN 1/> LESION PAST SURGICAL HISTORY OF remote sinus surgery REM LESION TRUNK,ARM,LEG > 4.0CM 3-27-13 ALLERGIES Adhesive Tape (Rosins), Levaquin [Levofloxacin], Seasonal [Other], and Zocor [Simvastatin] MEDICATIONS pravastatin (PRAVACHOL) 20 mg tablet Take 1 tablet by mouth daily at bedtime. pioglitazone (ACTOS) 15 mg tablet Take 1 tablet by mouth once daily. metFORMIN (GLUCOPHAGE) 1,000 mg tablet Take 1 tablet by mouth twice daily with meals. bisoprolol-hydroCHLOROthiazide (ZIAC) 2.5-6.25 mg per tablet Take 1 tablet by mouth twice daily. blood sugar diagnostic (FREESTYLE LITE STRIPS) test strip use 1 TEST STRIP to TEST BLOOD SUGAR twice a day allopurinol (ZYLOPRIM) 300 mg tablet take 1 tablet by mouth once daily for GOUT glimepiride (AMARYL) 4 mg tablet Take 1 tablet by mouth twice daily with meals. lisinopril (ZESTRIL, PRINIVIL) 40 mg tablet Take 1 tablet by mouth once daily. semaglutide (OZEMPIC) 2 mg/dose (8 mg/3 mL) pen injector Inject 2 mg subcutaneously one time a week. levothyroxine (SYNTHROID) 75 mcg tablet Take 1 tablet by mouth once daily. Take on empty stomach. For Thyroid triamcinolone acetonide (KENALOG) 0.1 % cream Apply 1 application to affected area three times daily. Apply sparingly to area for rash/itching. valACYclovir (VALTREX) 500 mg tablet Take 2 tablets by mouth twice daily. for one day as needed forepisode of cold sores Blood-Glucose Meter (FREESTYLE FREEDOM LITE) monitoring kit 1 Each as needed. FAMILY HISTORY Problem Relation Age of Onset Diabetes Father dialysis Hypertension Father Heart Father Hypertension Mother Lipids Mother Diabetes Son Diabetes Sister Diabetes Paternal Aunt Diabetes Paternal Uncle Diabetes Other niece Social History Tobacco Use Smoking status: Never Smokeless tobacco: Never Vaping Use Vaping Use: Never used Substance Use Topics Alcohol use: No Drug use: No ASSESSMENT/PLAN: 1. At increased risk of exposure to COVID-19 virus - ICD9: V15.89, ICD10: Z91.89 (primary diagnosis) - COVID WITH FLUA+B, ROUTINE 2. Sore throat - ICD9: 462, ICD10: J02.9 - STREP A MOLECULAR (POC) - negative Patient does not like [id number] medications so we are awaiting to see the viral panel results. Prescription instructions reviewed with patient as applicable. Potential red flag symptoms discussed with the patient. Reviewed appropriate action plan to take if red flag symptoms occur. Patient agreeable to treatment plan. Jennifer Austin APRN.ERCI documented in this encounterL[facility]09-09-2022 Miscellaneous Notes* Telephone Encounter - Lillian Barros Ma - 12/15/2021 11:03 AM EDT Last office visit: 09/26/21 F/u scheduled: 01/08/22 Lillian Barros Ma documented in this encounterL[facility]08-23-2022 Miscellaneous Notes* Telephone Encounter - Maria Alejandra Jauregui LPN - 11/28/2021 8:00 AM EDT Patient has been identified by name and date of : Yes Patient phones for refill(s): Requested Prescriptions Pending Prescriptions Disp Refills glimepiride (AMARYL) 4 mg tablet 180 tablet 1 Sig: Take 1 tablet by mouth twice daily with meals. Date of last office visit in primary care: 09/26/21 next apt 01/08/22 Last 2 Encounter Wt Readings: Date: Wt: 09/26/2021 110.4 kg (243 lb 6.4 oz) 07/19/2021 108 kg (238 lb) Previous labs/tests for medication: Diabetes: Hemoglobin A1C (%) Date Value 09/22/2021 7.3 05/20/2021 8.4 11/10/2020 7.2 Please advise. Thank you. Maria Alejandra Jauregui LPN documented in this encounterL[facility]05-17-2022 Miscellaneous Notes* Telephone Encounter - Cara Jauregui Pss - 08/22/2021 11:54 AM EDT Patient has been identified by name and date of : Yes Pending Prescriptions Disp Refills GLIMEPIRIDE 4 MG TABLET 60 tablet 2 Sig: Take 1 tablet by mouth twice daily with meals. SHIRLEY: No RX INSTRUCTIONS: Patient requesting a call when RX is approved and sent to the pharmacy. Please call patient at: [phone]. Cara Jauregui Pss documented in this encounterL[facility]05-17-2022 Evaluation note* Diagnosis Type 2 diabetes mellitus with stage 3a chronic kidney disease, without long-term current use of insulin (HCC) documented in this encounter [facility] History of Present illness Narrative* Pito Moya MD - 07/19/2021 1:22 PM EDT Chief Complaint Patient presents with: Transition Of Care HPI Georgie Lewis is a 65 year old female who presents here today for Transfer care visit from Dr. Mc. DIABETES MELLITUS: Ms. Lewis was last seen 2 months ago. Glimepiride increased to 4 mg BID from 4 mg daily due to high A1c. Since our last visit she denies excessive thirst or increased frequency of urination, numbness, tingling or pain in extremities, new or unusual visual symptoms and low sug ar/hypoglycemic reactions. Follows a diabetic diet some of the time. She is compliant with medication(s) and is tolerating med(s) without any side effects. She reports checking her glucose on a 2-3 times a day schedule with sugars in the 150-200 range. Patient's last HgA1C was Hemoglobin A1C (%) Date Value 05/20/2021 8.4 11/10/2020 7.2 ) Last Ophthalmology exam was within the past 3 months-Dr. Saul Last Podiatry exam was within the past 12 months BP well controlled on Ziac and lisinopril. Gout: no flares on allopurinol. Hypothyroidism: asymptomatic on synthroid 75 mcg daily. Past medical history, appointments, medications, allergies reviewed. Previous Medical History PAST MEDICAL HISTORY Diagnosis Date Allergic rhinitis due to other allergen Benign hypertensive heart disease without heart failure Gout Herpes labialis 04/17/2010 Hyperlipidemia LDL goal < 100 07/23/2012 Hypothyroidism Irregular menstrual cycle 04/08/2003 disordered proliferative endometrium Pancreatic cyst 07/19/2012 Type 2 diabetes mellitus with stage 3 chronic kidney disease (HCC) 06/18/2015 Previous Surgical History PAST SURGICAL HISTORY Procedure Laterality Date ENDOMETRIAL BX W/WO ENDOCERVIX BX W/O DILAT SPX 06/02/04 disordered endometrium EXC CYST/ABERRANT BREAST TISSUE OPEN /> LESION PAST SURGICAL HISTORY OF remote sinus surgery REM LESION TRUNK,ARM,LEG > 4.0CM 07-02-12 Family History FAMILY HISTORY Problem Relation Age of Onset Diabetes Father dialysis Hypertension Father Heart Father Hypertension Mother Lipids Mother Diabetes Son Diabetes Sister Diabetes Paternal Aunt Diabetes Paternal Uncle Diabetes Other niece Patient Allergies ALLERGIES Allergen Reactions Adhesive Tape (Michelle* Levaquin [Levofloxa* Intolerance Mental status changes, hypoglycemia Seasonal [Other] Zocor [Simvastatin] Other: See Comments muscle pain Current Medications Current Outpatient Medications on File Prior to Visit Medication Sig levothyroxine (SYNTHROID) 75 mcg tablet Take 1 tablet by mouth once daily. Take on empty stomach. For Thyroid glimepiride (AMARYL) 4 mg tablet Take 1 tablet by mouth twice daily with meals. atorvastatin (LIPITOR) 20 mg tablet Take 1 tablet by mouth once daily. For cholesterol. metFORMIN (GLUCOPHAGE) 1,000 mg tablet Take 1 tablet by mouth twice daily with meals. triamcinolone acetonide (KENALOG) 0.1 % cream Apply 1 application to affected area three times daily. Apply sparingly to area for rash/itching. allopurinol (ZYLOPRIM) 300 mg tablet Take 1 tablet by mouth once daily. For gout. bisoprolol-hydroCHLOROthiazide (ZIAC) 2.5-6.25 mg per tablet Take 1 tablet by mouth twice daily. lisinopril (ZESTRIL, PRINIVIL) 40 mg tablet Take 1 tablet by mouth once daily. blood sugar diagnostic (FREESTYLE LITE STRIPS) test strip Tests blood sugars 2 times a day. E11.22;N18.3. No insulin. semaglutide (OZEMPIC) 1 mg/dose (4 mg/3 mL) pen Inject 1 mg subcutaneously one time a week. azithromycin (ZITHROMAX) 500 mg tablet Take 1 tablet by mouth once daily. valACYclovir (VALTREX) 500 mg tablet Take 2 tablets by mouth twice daily. for one day as needed forepisode of cold sores meloxicam (MOBIC) 15 mg tablet Take 1 tablet by mouth once daily. With food. Blood-Glucose Meter (FREESTYLE FREEDOM LITE) monitoring kit 1 Each as needed. No current facility-administered medications on file prior to visit. Social History Social History Tobacco Use Smoking status: Never Smoker Smokeless tobacco: Never Used Vaping Use Vaping Use: Never used Substance Use Topics Alcohol use: No Drug use: No Review of Symptoms REVIEW OF SYSTEMS GENERAL: No weight loss, malaise or fevers RESPIRATORY: Negative for cough, hemoptysis, wheezing, COPD, dyspnea or shortness of breath CARDIOVASCULAR: Negative for chest pain, leg swelling, hypertension, CHF or palpitations GI: No nausea, vomiting, or diarrhea SKIN: Negative for lesions, rash, and itching EXAM: BP (P) 122/74 (BP Site: Left Arm, BP Position: Sitting, BP Cuff Size: Large Adult) Pulse (P) 66 Resp (P) 16 Wt 108 kg (238 lb) LMP 07/17/2011 BMI 40.85 kg/m General Appearance: Well appearing, alert, in no acute distress, well-hydrated, well nourished.. Skin: Skin color, texture, turgor normal, no suspicious rashes or lesions. Lungs: Lungs clear to auscultation. No wheezing, rhonchi, rales.. Heart: RRR without murmur, gallop, or rubs. No ectopy. Abdomen: Normal abdominal exam, Abdomen soft, non-tender. Bowel sounds normal. No masses, organomegaly. Extremities: No deformities, edema, skin discoloration, clubbing or cyanosis. Good capillary refill. Health Maintenance List HBA1C due on 08/17/2021 LDL CHOLESTEROL due on 11/10/2021 MAMMOGRAM due on 04/20/2022 URINE ALBUMIN:CREATININE RATIO due on 05/20/2022 SERUM CREATININE due on 05/20/2022 HEMOGLOBIN/HEMATOCRIT due on 05/20/2022 DIABETIC FOOT EXAM due on 05/29/2022 ANNUAL PCP TEAM CHRONIC DISEASE VISIT due on 05/29/2022 BP CONTROLLED (<130/80) due on 05/29/2022 DEPRESSION SCREENING due on 05/29/2022 COLORECTAL CANCER SCREENING due on 06/03/2022 DILATED RETINAL EXAM due on 06/20/2022 PAP TESTING due on 01/06/2023 HPV TESTING due on 01/06/2023 DTAP,TDAP,TD(3 - Td or Tdap) due on 09/20/2029 TWO PNEUMOVAX 5 YEARS APART PRIOR TO AGE 65 Completed ADULT PREVNAR-13 Completed INFLUENZA Completed HEPATITIS C SCREENING Completed SHINGRIX VACCINE Completed COVID-19 VACCINE Completed MENINGOCOCCAL CONJUGATE Aged Out HIV SCREENING Discontinued Data reviewed Component Latest Ref Rng & Units 05/20/2021 Protein, Total 6.3 - 8.0 g/dL 6.6 Albumin 3.9 - 4.9 g/dL 4.1 Calcium 8.5 - 10.2 mg/dL 9.2 Bilirubin, Total 0.2 - 1.3 mg/dL 0.4 Alkaline Phosphatase 34 - 123 U/L 78 AST 13 - 35 U/L 24 Glucose 74 - 99 mg/dL 203 (H) BUN 7 - 21 mg/dL 21 Creatinine 0.58 - 0.96 mg/dL 1.19 (H) Sodium 136 - 144 mmol/L 137 Potassium 3.7 - 5.1 mmol/L 4.8 Chloride 97 - 105 mmol/L 99 CO2 22 - 30 mmol/L 27 Anion Gap 9 - 18 mmol/L 11 ALT 7 - 38 U/L 23 eGFR- 55 eGFR-All Other Races . 46 WBC 3.70 - 11.00 k/uL 6.13 RBC 3.90 - 5.20 m/uL 4.39 Hemoglobin 11.5 - 15.5 g/dL 11.8 Hematocrit 36.0 - 46.0 % 38.3 MCV 80.0 - 100.0 fL 87.2 MCH 26.0 - 34.0 pG 26.9 MCHC 30.5 - 36.0 g/dL 30.8 RDW-CV 11.5 - 15.0 % 14.2 Platelet Count 150 - 400 k/uL 177 MPV 9.0 - 12.7 fL 11.7 Absolute nRBC <0.01 k/uL <0.01 Creatinine, Ur Random (UCRR) 20 - 300 mg/dL 110.5 Albumin, Urine Random mg/L <12.0 Albumin/Creat Ratio <30 mg/g Not calculated Hemoglobin A1C 4.3 - 5.6 % 8.4 (H) Estimated Average Glucose mg/dL 194 ASSESSMENT/PLAN: 1. Type 2 diabetes mellitus with stage 3a chronic kidney disease, without long- term current use of insulin (HCC) - ICD9: 250.40, 585.3, ICD10: E11.22, N18.31 (primary diagnosis) poorly controlled - Add pioglitazone (Actos), given booklets on meal planning and survival skills. - Blood glucose monitoring on a three times a day schedule - Encouraged regular aerobic exercise and weight loss - Daily Asprin therapy recommended - Follow up in 2 months, sooner should any other issues arise. - Discussed diabetic education issues of half-way diabetic complications, hypoglycemic symptoms, hyperglycemic symptoms, diet, medications- side effects and need for compliance, importance of exercise and importance of annual examinations with Opthalmology with patient. - PIOGLITAZONE 15 MG TABLET Discussed adding DPP 4 to GLP 1, but studies have shown limited benefit when used together. Considered SGLT2, but with previous GFR of 45 and last GFR only 46, will try low dose actos instead along with meal planning and exercise. 2. 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 - check TSH in 3 months - continue current dose of Synthroid 0.075 mg 3. Essential hypertension, benign - ICD9: 401.1, ICD10: I10 - good control - Continue current medication(s) - Encouraged dietary sodium restriction/DASH diet - Recommended regular aerobic exercise. - Goal of BP <140/90 4. Hyperlipidemia with target LDL less than 100 - ICD9: 272.4, ICD10: E78.5 - good control - Continue current medication. - Encouraged following a low fat, low cholesterol diet. - Discussed the benefits of regular aerobic exercise and weight loss. 5. Chronic gout involving toe without tophus, unspecified cause, unspecified laterality - ICD9: 274.02, ICD10: M1A.9XX0 Controlled on allopurinol. Recheck uric acid level prior to next OV. 6. 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 Essential hypertension, benign Hyperlipidemia with target LDL less than 100 Other and unspecified hyperlipidemia Chronic gout involving toe without tophus, unspecified cause, unspecified laterality Obesity, Class III, BMI 40-49.9 (morbid obesity) ([facility]) Morbid obesity documented in this encounter [facility] History of Past illness Narrative* Problem Noted Date Resolved Date Chronic diarrhea 12/24/2019 04/22/2020 Acute gout involving toe 05/06/2018 021 Pancreatic cyst 07/19/2012 06/18/2015 Herpes labialis 04/17/2010 06/18/2015 Type II or unspecified type diabetes mellitus without mention of complication, not stated as uncontrolled 10/31/2006 Pure hyperglyceridemia 10/31/2006 3 Sprain and strain of unspecified site of knee an d leg 10/17/2006 03/16/2014 Irregular menstrual cycle 08/01/20052011 documented as of this encounter (statuses as of 07/19/2021) [facility] of Past illness Narrative* Problem Noted Date Resolved Date Chronic diarrhea 12/24/2019 04/22/2020 Acute gout involving toe 05/06/2018 021 Pancreatic cyst 07/19/2012 06/18/2015 Herpes labialis 04/17/2010 06/18/2015 Type II or unspecified type diabetes mellitus without mention of complication, not stated as uncontrolled 10/31/2006 Pure hyperglyceridemia 10/31/2006 3 Sprain and strain of unspecified site of knee an d leg 10/17/2006 03/16/2014 Irregular menstrual cycle 08/01/20052011 documented as of this encounter (statuses as of 08/22/2021) [facility] of Past illness Narrative* Problem Noted Date Resolved Date Chronic diarrhea 12/24/2019 04/22/2020 Acute gout involving toe 05/06/2018 021 Pancreatic cyst 07/19/2012 06/18/2015 Herpes labialis 04/17/2010 06/18/2015 Type II or unspecified type diabetes mellitus without mention of complication, not stated as uncontrolled 10/31/2006 Pure hyperglyceridemia 10/31/2006 3 Sprain and strain of unspecified site of knee an d leg 10/17/2006 03/16/2014 Irregular menstrual cycle 08/01/20052011 documented as of this encounter (statuses as of 11/27/2021) [facility] illness Narrative* Problem Noted Date Resolved Date Chronic diarrhea 12/24/2019 04/22/2020 Acute gout involving toe 05/06/2018 021 Pancreatic cyst 07/19/2012 06/18/2015 Herpes labialis 04/17/2010 06/18/2015 Type II or unspecified type diabetes mellitus without mention of complication, not stated as uncontrolled 10/31/2006 Pure hyperglyceridemia 10/31/2006 3 Sprain and strain of unspecified site of knee an d leg 10/17/2006 03/16/2014 Irregular menstrual cycle 08/01/20052011 documented as of this encounter (statuses as of 11/28/2021) [facility] illness Narrative* Problem Noted Date Resolved Date Chronic diarrhea 12/24/2019 04/22/2020 Acute gout involving toe 05/06/2018 021 Pancreatic cyst 07/19/2012 06/18/2015 Herpes labialis 04/17/2010 06/18/2015 Type II or unspecified type diabetes mellitus without mention of complication, not stated as uncontrolled 10/31/2006 Pure hyperglyceridemia 10/31/2006 3 Sprain and strain of unspecified site of knee an d leg 10/17/2006 03/16/2014 Irregular menstrual cycle 08/01/20052011 documented as of this encounter (statuses as of 12/15/2021) [facility] Narrative* Problem Noted Date Resolved Date Chronic diarrhea 12/24/2019 04/22/2020 Acute gout involving toe 05/06/2018 021 Pancreatic cyst 07/19/2012 06/18/2015 Herpes labialis 04/17/2010 06/18/2015 Type II or unspecified type diabetes mellitus without mention of complication, not stated as uncontrolled 10/31/2006 Pure hyperglyceridemia 10/31/2006 3 Sprain and strain of unspecified site of knee an d leg 10/17/2006 03/16/2014 Irregular menstrual cycle 08/01/20052011 documented as of this encounter (statuses as of 01/01/2022) [facility] Narrative* Problem Noted Date Resolved Date Chronic diarrhea 12/24/2019 04/22/2020 Acute gout involving toe 05/06/2018 021 Pancreatic cyst 07/19/2012 06/18/2015 Herpes labialis 04/17/2010 06/18/2015 Type II or unspecified type diabetes mellitus without mention of complication, not stated as uncontrolled 10/31/2006 Pure hyperglyceridemia 10/31/2006 3 Sprain and strain of unspecified site of knee an d leg 10/17/2006 03/16/2014 Irregular menstrual cycle 08/01/20052011 documented as of this encounter (statuses as of 01/16/2022) [place] [id number] History of Past illness Narrative* Problem Noted Date Resolved Date Chronic diarrhea 12/24/2019 04/22/2020 Acute gout involving toe 05/06/2018 021 Pancreatic cyst 07/19/2012 06/18/2015 Herpes labialis 04/17/2010 06/18/2015 Type II or unspecified type diabetes mellitus without mention of complication, not stated as uncontrolled 10/31/2006 Pure hyperglyceridemia 10/31/2006 3 Sprain and strain of unspecified site of knee an d leg 10/17/2006 03/16/2014 Irregular menstrual cycle 08/01/20052011 documented as of this encounter (statuses as of 02/04/2022) [facility] Narrative* Problem Noted Date Resolved Date Chronic diarrhea 12/24/2019 04/22/2020 Acute gout involving toe 05/06/2018 021 Pancreatic cyst 07/19/2012 06/18/2015 Herpes labialis 04/17/2010 06/18/2015 Type II or unspecified type diabetes mellitus without mention of complication, not stated as uncontrolled 10/31/2006 Pure hyperglyceridemia 10/31/2006 3 Sprain and strain of unspecified site of knee an d leg 10/17/2006 03/16/2014 Irregular menstrual cycle 08/01/20052011 documented as of this encounter (statuses as of 02/05/2022) [facility] Narrative* Problem Noted Date Resolved Date Chronic diarrhea 12/24/2019 04/22/2020 Acute gout involving toe 05/06/2018 021 Pancreatic cyst 07/19/2012 06/18/2015 Herpes labialis 04/17/2010 06/18/2015 Type II or unspecified type diabetes mellitus without mention of complication, not stated as uncontrolled 10/31/2006 Pure hyperglyceridemia 10/31/2006 3 Sprain and strain of unspecified site of knee an d leg 10/17/2006 03/16/2014 Irregular menstrual cycle 08/01/20052011 documented as of this encounter (statuses as of 02/06/2022) [address]2020 History of Past illness Narrative* Problem Noted Date Resolved Date Chronic diarrhea 12/24/2019 04/22/2020 Acute gout involving toe 05/06/2018 021 Pancreatic cyst 07/19/2012 06/18/2015 Herpes labialis 04/17/2010 06/18/2015 Type II or unspecified type diabetes mellitus without mention of complication, not stated as uncontrolled 10/31/2006 Pure hyperglyceridemia 10/31/2006 3 Sprain and strain of unspecified site of knee an d leg 10/17/2006 03/16/2014 Irregular menstrual cycle 08/01/20052011 documented as of this encounter (statuses as of 03/07/2022) [place] [id number] History of Past illness Narrative* Problem Noted Date Resolved Date Chronic diarrhea 12/24/2019 04/22/2020 Acute gout involving toe 05/06/2018 021 Pancreatic cyst 07/19/2012 06/18/2015 Herpes labialis 04/17/2010 06/18/2015 Type II or unspecified type diabetes mellitus without mention of complication, not stated as uncontrolled 10/31/2006 Pure hyperglyceridemia 10/31/2006 3 Sprain and strain of unspecified site of knee an d leg 10/17/2006 03/16/2014 Irregular menstrual cycle 08/01/20052011 documented as of this encounter (statuses as of 03/11/2022) [place] [id number] History of Past illness Narrative* Problem Noted Date Resolved Date Chronic diarrhea 12/24/2019 04/22/2020 Acute gout involving toe 05/06/2018 021 Pancreatic cyst 07/19/2012 06/18/2015 Herpes labialis 04/17/2010 06/18/2015 Type II or unspecified type diabetes mellitus without mention of complication, not stated as uncontrolled 10/31/2006 Pure hyperglyceridemia 10/31/2006 3 Sprain and strain of unspecified site of knee an d leg 10/17/2006 03/16/2014 Irregular menstrual cycle 08/01/20052011 documented as of this encounter (statuses as of 03/12/2022) [place] [id number] History of Past illness Narrative* Problem Noted Date Resolved Date Chronic diarrhea 12/24/2019 04/22/2020 Acute gout involving toe 05/06/2018 021 Pancreatic cyst 07/19/2012 06/18/2015 Herpes labialis 04/17/2010 06/18/2015 Type II or unspecified type diabetes mellitus without mention of complication, not stated as uncontrolled 10/31/2006 Pure hyperglyceridemia 10/31/2006 3 Sprain and strain of unspecified site of knee an d leg 10/17/2006 03/16/2014 Irregular menstrual cycle 08/01/20052011 documented as of this encounter (statuses as of 04/24/2022) [facility] History of Past illness Narrative* Problem Noted Date Resolved Date Chronic diarrhea 12/24/2019 04/22/2020 Acute gout involving toe 05/06/2018 021 Pancreatic cyst 07/19/2012 06/18/2015 Herpes labialis 04/17/2010 06/18/2015 Type II or unspecified type diabetes mellitus without mention of complication, not stated as uncontrolled 10/31/2006 Pure hyperglyceridemia 10/31/2006 3 Sprain and strain of unspecified site of knee an d leg 10/17/2006 03/16/2014 Irregular menstrual cycle 08/01/20052011 documented as of this encounter (statuses as of 05/01/2022) [facility] History of Past illness Narrative* Problem Noted Date Resolved Date Chronic diarrhea 12/24/2019 04/22/2020 Acute gout involving toe 05/06/2018 021 Pancreatic cyst 07/19/2012 06/18/2015 Herpes labialis 04/17/2010 06/18/2015 Type II or unspecified type diabetes mellitus without mention of complication, not stated as uncontrolled 10/31/2006 Pure hyperglyceridemia 10/31/2006 3 Sprain and strain of unspecified site of knee an d leg 10/17/2006 03/16/2014 Irregular menstrual cycle 08/01/20052011 documented as of this encounter (statuses as of 05/31/2022) [facility] History of Past illness Narrative* Problem Noted Date Resolved Date Chronic diarrhea 12/24/2019 04/22/2020 Acute gout involving toe 05/06/2018 021 Pancreatic cyst 07/19/2012 06/18/2015 Herpes labialis 04/17/2010 06/18/2015 Type II or unspecified type diabetes mellitus without mention of complication, not stated as uncontrolled 10/31/2006 Pure hyperglyceridemia 10/31/2006 3 Sprain and strain of unspecified site of knee an d leg 10/17/2006 03/16/2014 Irregular menstrual cycle 08/01/20052011 documented as of this encounter (statuses as of 06/06/2022) [facility] of Past illness Narrative* Problem Noted Date Resolved Date Chronic diarrhea 12/24/2019 04/22/2020 Acute gout involving toe 05/06/2018 021 Pancreatic cyst 07/19/2012 06/18/2015 Herpes labialis 04/17/2010 06/18/2015 Type II or unspecified type diabetes mellitus without mention of complication, not stated as uncontrolled 10/31/2006 Pure hyperglyceridemia 10/31/2006 3 Sprain and strain of unspecified site of knee an d leg 10/17/2006 03/16/2014 Irregular menstrual cycle 08/01/20052011 documented as of this encounter (statuses as of 06/07/2022) [facility] of Past illness Narrative* Problem Noted Date Resolved Date Chronic diarrhea 12/24/2019 04/22/2020 Acute gout involving toe 05/06/2018 021 Pancreatic cyst 07/19/2012 06/18/2015 Herpes labialis 04/17/2010 06/18/2015 Type II or unspecified type diabetes mellitus without mention of complication, not stated as uncontrolled 10/31/2006 Pure hyperglyceridemia 10/31/2006 3 Sprain and strain of unspecified site of knee an d leg 10/17/2006 03/16/2014 Irregular menstrual cycle 08/01/20052011 documented as of this encounter (statuses as of 06/09/2022) [facility] of Past illness Narrative* Problem Noted Date Resolved Date Chronic diarrhea 12/24/2019 04/22/2020 Acute gout involving toe 05/06/2018 021 Pancreatic cyst 07/19/2012 06/18/2015 Herpes labialis 04/17/2010 06/18/2015 Type II or unspecified type diabetes mellitus without mention of complication, not stated as uncontrolled 10/31/2006 Pure hyperglyceridemia 10/31/2006 3 Sprain and strain of unspecified site of knee an d leg 10/17/2006 03/16/2014 Irregular menstrual cycle 08/01/20052011 documented as of this encounter (statuses as of 07/11/2022) [facility] of Past illness Narrative* Problem Noted Date Diagnosed Date Resolved Date Chronic diarrhea 12/24/2019 04/22/2020 Acute gout involving toe 05/06/2018 Pancreatic cyst 07/19/2012 06/18/2015 Herpes labialis 04/17/2010 06/18/2015 Type II or unspecified type diabetes mellitus without mention of complication, not stated as uncontrolled 10/31/2006 08/03/2013 Pure hyperglyceridemia 10/31/200607/23 Sprain and strain of unspeci fied site of knee and leg 10/17/2006 03/16/2014 Irregular menstrual cycle 08/01/2005 documented as of this encounter (statuses as of 10/20/2022) [facility] of [facility] illness Narrative* Problem Noted Date Diagnosed Date Resolved Date Chronic diarrhea 12/24/2019 04/22/2020 Acute gout involving toe 05/06/2018 Pancreatic cyst 07/19/2012 06/18/2015 Herpes labialis 04/17/2010 06/18/2015 Type II or unspecified type diabetes mellitus without mention of complication, not stated as uncontrolled 10/31/2006 08/03/2013 Pure hyperglyceridemia 10/31/200607/23 Sprain and strain of unspeci fied site of knee and leg 10/17/2006 03/16/2014 Irregular menstrual cycle 08/01/2005 documented as of this encounter (statuses as of 10/23/2022) [facility] of Past illness Narrative* Problem Noted Date Diagnosed Date Resolved Date Chronic diarrhea 12/24/2019 04/22/2020 Acute gout involving toe 05/06/2018 Pancreatic cyst 07/19/2012 06/18/2015 Herpes labialis 04/17/2010 06/18/2015 Type II or unspecified type diabetes mellitus without mention of complication, not stated as uncontrolled 10/31/2006 08/03/2013 Pure hyperglyceridemia 10/31/200607/23 Sprain and strain of unspeci fied site of knee and leg 10/17/2006 03/16/2014 Irregular menstrual cycle 08/01/2005 documented as of this encounter (statuses as of 10/23/2022) [facility] of Past illness Narrative* Problem Noted Date Diagnosed Date Resolved Date Chronic diarrhea 12/24/2019 04/22/2020 Acute gout involving toe 05/06/2018 Pancreatic cyst 07/19/2012 06/18/2015 Herpes labialis 04/17/2010 06/18/2015 Type II or unspecified type diabetes mellitus without mention of complication, not stated as uncontrolled 10/31/2006 08/03/2013 Pure hyperglyceridemia 10/31/200607/23 Sprain and strain of unspeci fied site of knee and leg 10/17/2006 03/16/2014 Irregular menstrual cycle 08/01/2005 documented as of this encounter (statuses as of 02/10/2023) [facility] History of Past illness Narrative* Problem Noted Date Diagnosed Date Resolved Date Chronic diarrhea 12/24/2019 04/22/2020 Acute gout involving toe 05/06/2018 Pancreatic cyst 07/19/2012 06/18/2015 Herpes labialis 04/17/2010 06/18/2015 Type II or unspecified type diabetes mellitus without mention of complication, not stated as uncontrolled 10/31/2006 08/03/2013 Pure hyperglyceridemia 10/31/200607/23 Sprain and strain of unspeci fied site of knee and leg 10/17/2006 03/16/2014 Irregular menstrual cycle 08/01/2005 documented as of this encounter (statuses as of 05/21/2023) [facility] History of Past illness Narrative* Problem Noted Date Diagnosed Date Resolved Date Chronic diarrhea 12/24/2019 04/22/2020 Acute gout involving toe 05/06/2018 Pancreatic cyst 07/19/2012 06/18/2015 Herpes labialis 04/17/2010 06/18/2015 Type II or unspecified type diabetes mellitus without mention of complication, not stated as uncontrolled 10/31/2006 08/03/2013 Pure hyperglyceridemia 10/31/200607/23 Sprain and strain of unspeci fied site of knee and leg 10/17/2006 03/16/2014 Irregular menstrual cycle 08/01/2005 documented as of this encounter (statuses as of 05/22/2023) [facility] History of Past illness Narrative* Problem Noted Date Diagnosed Date Resolved Date Chronic diarrhea 12/24/2019 04/22/2020 Acute gout involving toe 05/06/2018 Pancreatic cyst 07/19/2012 06/18/2015 Herpes labialis 04/17/2010 06/18/2015 Type II or unspecified type diabetes mellitus without mention of complication, not stated as uncontrolled 10/31/2006 08/03/2013 Pure hyperglyceridemia 10/31/200607/23 Sprain and strain of unspeci fied site of knee and leg 10/17/2006 03/16/2014 Irregular menstrual cycle 08/01/2005 documented as of this encounter (statuses as of 05/23/2023) [place] [address]-17-2020 History of Past illness Narrative* Problem Noted Date Diagnosed Date Resolved Date Chronic diarrhea 12/24/2019 04/22/2020 Acute gout involving toe 05/06/2018 Pancreatic cyst 07/19/2012 06/18/2015 Herpes labialis 04/17/2010 06/18/2015 Type II or unspecified type diabetes mellitus without mention of complication, not stated as uncontrolled 10/31/2006 08/03/2013 Pure hyperglyceridemia 10/31/200607/23 Sprain and strain of unspeci fied site of knee and leg 10/17/2006 03/16/2014 Irregular menstrual cycle 08/01/2005 documented as of this encounter (statuses as of 05/30/2023) [facility] Essential hypertension, benign [facility] Diagnosis Type 2 diabetes mellitus with stage 3a chronic kidney disease, without long-term current use of insulin (HCC) [facility] Diagnosis 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 [facility] Diagnosis Hyperlipidemia with target LDL less than 100- Primary Other and unspecified hyperlipidemia [facility]* Diagnosis At increased risk of exposure to COVID-19 virus- Primary Sore throat Acute pharyngitis [facility]* Diagnosis Urinary frequency- Primary [facility]* Diagnosis Essential hypertension, benign [facility]* Diagnosis Sinobronchitis- Primary Unspecified sinusitis (chronic) Throat pain [facility] Diagnosis Type 2 diabetes mellitus with stage 3a chronic kidney disease, without long-term current use of insulin (HCC)- Primary Stage 3a chronic kidney disease (HCC) 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 Essential hypertension, benign Chronic gout involving toe without tophus, unspecified cause, unspecified laterality Hyperlipidemia with target LDL less than 100 Other and unspecified hyperlipidemia [facility]* Diagnosis Essential hypertension, benign- Primary 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 Type 2 diabetes mellitus with stage 3a chronic kidney disease, without long-term current use of insulin (HCC) Screening for colon cancer Special screening for malignant neoplasms, colon Stage 3b chronic kidney disease (HCC) 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 note* Diagnosis Encounter for gynecological examination (general) (routine) without abnormal findings Encounter for screening mammogram for breast cancer [facility]* Diagnosis Abnormal mammogram Abnormal mammogram, unspecified [facility] Diagnosis Encounter for gynecological examination (general) (routine) without abnormal findings- Primary Encounter for screening mammogram for breast cancer [facility]* Diagnosis Encounter for gynecological examination (general) (routine) without abnormal findings Encounter for screening mammogram for breast cancer documented in this encounter [facility] for referral (narrative)* Diagnostic Procedure Only (Routine) - Closed Specialty Diagnoses / Procedures Referred By Bird barkley Referred To Contact [facility] Diagnoses Encounter for screening mammogram for malignant neoplasm of breast Procedures IAM SCREENING W TREV SCREENING DIGITAL BREAST TOMOSYNTHESIS BI SCREENING MAMMOGRAPHY BI 2-VIEW BREAST INC CAD Yazmin Farley MD [address] [place] [address] [facility] [address] [place] [address] Referral ID Status Reason Start Date Expiration Date V isits Requested Visits Authorized [id number] Closed Auto-Generate d Referral 04/06/2022 05/06/2023 1 1 [facility] for referral (narrative)* Diagnostic Procedure Only (Routine) - Authorized Specialty Diagnoses / Procedures Referred By Bird barkley Referred To Contact [facility] Diagnoses Abnormal mammogram Procedures US BREAST LTD LEFT US BREAST UNI REAL TIME WITH IMAGE LIMITED Yazmin Farley MD [address] [place] [address] [facility] [address] [place] [address] Referral ID Status Reason Start Date Expiration Date Visits Requested Visits Authorized [id number] Authorized Auto-Generat ed Referral 05/21/2023 06/19/2024 1 1 * Diagnostic Procedure Only (Routine) - Authorized Specialty Diagnoses / Procedures Referred By Bird barkley Referred To Contact [facility] Diagnoses Abnormal mammogram Procedures IAM DIAGNOSTIC LEFT DIAGNOSTIC MAMMOGRAPHY COMPUTER-AIDED DETCJ UNI Yazmin Farley MD [address] [place] [address] [facility] [address] [place] [address] Referral ID Status Reason Start Date Expiration Date Visits Requested Visits Authorized [id number] Authorized Auto-Generat ed Referral 05/21/2023 06/19/2024 1 1 [facility] for referral (narrative)* Diagnostic Procedure Only (Routine) - Closed Specialty Diagnoses / Procedures Referred By Contac t Referred To Contact [facility] Diagnoses Encounter for gynecological examination (general) (routine) without abnormal findings Encounter for screening mammogram for breast cancer Procedures IAM SCREENING W TREV SCREENING DIGITAL BREAST TOMOSYNTHESIS BI SCREENING MAMMOGRAPHY BI 2-VIEW BREAST INC CAD Yazmin Farley MD [address] [place] [address] [facility] [address] [place] [address] Referral ID Status Reason Start Date Expiration Date V isits Requested Visits Authorized [id number] Closed Auto-Generate d Referral 09/18/2022 10/18/2023 1 1 [facility] for referral (narrative)* Diagnostic Procedure Only (Routine) - Closed Specialty Diagnoses / Procedures Referred By Bird t Referred To Contact [facility] Diagnoses Abnormal mammogram Procedures US BREAST LTD LEFT US BREAST UNI REAL TIME WITH IMAGE LIMITED Yazmin Farley MD [address] [place] [address] [facility] [address] [address] Referral ID Status Reason Start Date Expiration Date V isits Requested Visits Authorized [id number] Closed Auto-Generate d Referral 05/21/2023 06/19/2024 1 1 [facility] for referral (narrative)* Diagnostic Procedure Only (Routine) - Authorized Specialty Diagnoses / Procedures Referred By Contac t Referred To Contact [facility] Diagnoses Encounter for gynecological examination (general) (routine) without abnormal findings Encounter for screening mammogram for breast cancer Procedures IAM SCREENING W TREV SCREENING DIGITAL BREAST TOMOSYNTHESIS BI SCREENING MAMMOGRAPHY BI 2-VIEW BREAST INC CAD Yazmin Farley MD [address] [place] [address] [facility] [address] [place] [address] Referral ID Status Reason Start Date Expiration Date Visits Requested Visits Authorized [id number] Authorized Auto-Generat ed Referral 12/11/2023 01/09/2025 1 1 [facility] for referral (narrative)No reason for referral information availableWSycamore Medical Center Work Phone: Reason for visit Narrative* Diagnostic Procedure Only (Routine) - Closed Specialty Diagnoses / Procedures Referred By Bird t Referred To Contact [facility] Diagnoses Encounter for screening mammogram for malignant neoplasm of breast Procedures IAM SCREENING W TREV SCREENING DIGITAL BREAST TOMOSYNTHESIS BI SCREENING MAMMOGRAPHY BI 2-VIEW BREAST INC Yazmin Hernandez MD [address] [place] [address] [facility] [address] [place] [id number] Referral ID Status Reason Start Date Expiration Date V isits Requested Visits Authorized [id number] Closed Auto-Generate d Referral 04/06/2022 05/06/2023 1 1 [facility] for visit Narrative* Diagnostic Procedure Only (Routine) - Closed Specialty Diagnoses / Procedures Referred By Bird barkley Referred To Contact [facility] Diagnoses Encounter for gynecological examination (general) (routine) without abnormal findings Encounter for screening mammogram for breast cancer Procedures IAM SCREENING W TREV SCREENING DIGITAL BREAST TOMOSYNTHESIS BI SCREENING MAMMOGRAPHY BI 2-VIEW BREAST INC Yazmin Hernandez MD [address] [place] [address] [facility] [address] [place] [phone] Referral ID Status Reason Start Date Expiration Date V isits Requested Visits Authorized [id number] Closed Auto-Generate d Referral 09/18/2022 10/18/2023 1 1 [facility] for visit Narrative* Diagnostic Procedure Only (Routine) - Closed Specialty Diagnoses / Procedures Referred By Bird t Referred To Contact [facility] Diagnoses Abnormal mammogram Procedures IAM DIAGNOSTIC LEFT DIAGNOSTIC MAMMOGRAPHY COMPUTER-AIDED DETCJ UNI Yazmin Farley MD [address] [place] [address] [facility] [address] [place] [address] Referral ID Status Reason Start Date Expiration Date V isits Requested Visits Authorized [id number] Closed Auto-Generate d Referral 05/21/2023 06/19/2024 1 1 [facility]* Diagnostic Procedure Only (Routine) - Closed Specialty Diagnoses / Procedures Referred By Dandreac t Referred To Contact [facility] Diagnoses Encounter for gynecological examination (general) (routine) without abnormal findings Encounter for screening mammogram for breast cancer Procedures IAM SCREENING W TREV SCREENING DIGITAL BREAST TOMOSYNTHESIS BI SCREENING MAMMOGRAPHY BI 2-VIEW BREAST INC Yazmin Hernandez MD [address] [place] [address] Phone: tel: fax: [facility] [address] [place] [address] Referral ID Status Reason Start Date Expiration Date V isits Requested Visits Authorized [id number] Closed Auto-Generate d Referral 12/11/2023 01/09/2025 1 1 [facility] Reason for Referral Specialty Diagnoses / Procedures Referred By Contac t Referred To Contact Diagnoses Type 2 diabetes mellitus with stage 3a chronic kidney disease, without long-term current use of insulin (HCC) 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 [address] [place] [address] Referral ID Status Reason Start Date Expiration Date Visits Re quested Visits Authorized [id number] Closed 1 1 Specialty Diagnoses / Procedures Referred By Contac t Referred To Contact Nephrology Diagnoses Stage 3b chronic kidney disease (HCC) Procedures CONSULT TO NEPHROLOGY OFFICE/OUTPATIENT [facility] 60-74 MINUTES 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 [address] [place] [address] Referral ID Status Reason Start Date Expiration Date Visits Requested Visits Authorized [id number] Authorized PCP Requested Referral 10/19/2022 10/19/2023 1 1 Referral ID Status Reason Start Date Expiration Date Visits Re quested Visits Authorized [id number] Closed 1 1 Health Concerns Infection Onset Date Last Indicated Resolved Time COVID-19 Rule-Out 02/04/2022 02/04/2022 Chief Complaint and Reason for Visit Chief Complaint Chronic kidney disea se, stage 3a Chief Complaint SCREENING Chief Complaint SCREENING 2 DRS/ 2 ORDERS Chief Complaint SCREENING 2 DRS/ 2 ORDERS ADD LEFT ELBOW XRAY Chief Complaint Admit Date CKD July 29, 2024 9:3 7am LUMP IN NECK September 08, 2024 9:20a m Chief Complaint Admit Date CKD July 29, 2024 9:3 7am LUMP IN NECK September 08, 2024 9:20a m EORDERS October 07, 2024 10:16 am Summary Purpose Family History No Family History Records Found Relationship Condition Age at Onset Recorded Date/T michelle mother Hypertension Unknown Diabetes mellitus Unknown Disorder of thyroid Unknown father Kidney disorder Unknown Cardiac disease Unknown Advance Directives No Advanced Directives Records FoundNo Advanced Directives Records FoundNo Advanced Directives Records Found Additional Source Comments Source Comments (unrecognize d section and content) In the event this informatio n is protected by the Federal Confidentiality of Alcohol and Drug Abuse Patient Records regulations: The Federal rules restrict any use of the information to criminally investigate or prosecute any alcohol or drug abuse patient.[facility] the event this information is protected by the Federal Confidentiality of Alcohol and Drug Abuse Patient Records regulations: The Federal rules restrict any use of the information to criminally investigate or prosecute any alcohol or drug abuse patient.[facility] the event this information is protected by the Federal Confidentiality of Alcohol and Drug Abuse Patient Records regulations: The Federal rules restrict any use of the information to criminally investigate or prosecute any alcohol or drug abuse patient.[facility] the event this information is protected by the Federal Confidentiality of Alcohol and Drug Abuse Patient Records regulations: The Federal rules restrict any use of the information to criminally investigate or prosecute any alcohol or drug abuse patient.[facility] the event this information is protected by the Federal Confidentiality of Alcohol and Drug Abuse Patient Records regulations: The Federal rules restrict any use of the information to criminally investigate or prosecute any alcohol or drug abuse patient.[facility] CenterIn the event this information is protected by the Federal Confidentiality of Alcohol and Drug Abuse Patient Records regulations: The Federal rules restrict any use of the information to criminally investigate or prosecute any alcohol or drug abuse patient.[facility] CenterIn the event this information is protected by the Federal Confidentiality of Alcohol and Drug Abuse Patient Records regulations: The Federal rules restrict any use of the information to criminally investigate or prosecute any alcohol or drug abuse patient.[facility] CenterIn the event this information is protected by the Federal Confidentiality of Alcohol and Drug Abuse Patient Records regulations: The Federal rules restrict any use of the information to criminally investigate or prosecute any alcohol or drug abuse patient.[facility] CenterIn the event this information is protected by the Federal Confidentiality of Alcohol and Drug Abuse Patient Records regulations: The Federal rules restrict any use of the information to criminally investigate or prosecute any alcohol or drug abuse patient.[facility] CenterIn the event this information is protected by the Federal Confidentiality of Alcohol and Drug Abuse Patient Records regulations: The Federal rules restrict any use of the information to criminally investigate or prosecute any alcohol or drug abuse patient.[facility] CenterIn the event this information is protected by the Federal Confidentiality of Alcohol and Drug Abuse Patient Records regulations: The Federal rules restrict any use of the information to criminally investigate or prosecute any alcohol or drug abuse patient.[facility] CenterIn the event this information is protected by the Federal Confidentiality of Alcohol and Drug Abuse Patient Records regulations: The Federal rules restrict any use of the information to criminally investigate or prosecute any alcohol or drug abuse patient.[facility] CenterIn the event this information is protected by the Federal Confidentiality of Alcohol and Drug Abuse Patient Records regulations: The Federal rules restrict any use of the information to criminally investigate or prosecute any alcohol or drug abuse patient.[facility] CenterIn the event this information is protected by the Federal Confidentiality of Alcohol and Drug Abuse Patient Records regulations: The Federal rules restrict any use of the information to criminally investigate or prosecute any alcohol or drug abuse patient.[facility] CenterIn the event this information is protected by the Federal Confidentiality of Alcohol and Drug Abuse Patient Records regulations: The Federal rules restrict any use of the information to criminally investigate or prosecute any alcohol or drug abuse patient.[facility] CenterIn the event this information is protected by the Federal Confidentiality of Alcohol and Drug Abuse Patient Records regulations: The Federal rules restrict any use of the information to criminally investigate or prosecute any alcohol or drug abuse patient.[facility] CenterIn the event this information is protected by the Federal Confidentiality of Alcohol and Drug Abuse Patient Records regulations: The Federal rules restrict any use of the information to criminally investigate or prosecute any alcohol or drug abuse patient.[facility] CenterIn the event this information is protected by the Federal Confidentiality of Alcohol and Drug Abuse Patient Records regulations: The Federal rules restrict any use of the information to criminally investigate or prosecute any alcohol or drug abuse patient.[facility] CenterIn the event this information is protected by the Federal Confidentiality of Alcohol and Drug Abuse Patient Records regulations: The Federal rules restrict any use of the information to criminally investigate or prosecute any alcohol or drug abuse patient.[facility] CenterIn the event this information is protected by the Federal Confidentiality of Alcohol and Drug Abuse Patient Records regulations: The Federal rules restrict any use of the information to criminally investigate or prosecute any alcohol or drug abuse patient.[facility] CenterIn the event this information is protected by the Federal Confidentiality of Alcohol and Drug Abuse Patient Records regulations: The Federal rules restrict any use of the information to criminally investigate or prosecute any alcohol or drug abuse patient.[facility] CenterIn the event this information is protected by the Federal Confidentiality of Alcohol and Drug Abuse Patient Records regulations: The Federal rules restrict any use of the information to criminally investigate or prosecute any alcohol or drug abuse patient.[facility] CenterIn the event this information is protected by the Federal Confidentiality of Alcohol and Drug Abuse Patient Records regulations: The Federal rules restrict any use of the information to criminally investigate or prosecute any alcohol or drug abuse patient.[facility] CenterIn the event this information is protected by the Federal Confidentiality of Alcohol and Drug Abuse Patient Records regulations: The Federal rules restrict any use of the information to criminally investigate or prosecute any alcohol or drug abuse patient.[facility] CenterIn the event this information is protected by the Federal Confidentiality of Alcohol and Drug Abuse Patient Records regulations: The Federal rules restrict any use of the information to criminally investigate or prosecute any alcohol or drug abuse patient.[facility] CenterIn the event this information is protected by the Federal Confidentiality of Alcohol and Drug Abuse Patient Records regulations: The Federal rules restrict any use of the information to criminally investigate or prosecute any alcohol or drug abuse patient.[facility] CenterIn the event this information is protected by the Federal Confidentiality of Alcohol and Drug Abuse Patient Records regulations: The Federal rules restrict any use of the information to criminally investigate or prosecute any alcohol or drug abuse patient.[facility] CenterIn the event this information is protected by the Federal Confidentiality of Alcohol and Drug Abuse Patient Records regulations: The Federal rules restrict any use of the information to criminally investigate or prosecute any alcohol or drug abuse patient.[facility] CenterIn the event this information is protected by the Federal Confidentiality of Alcohol and Drug Abuse Patient Records regulations: The Federal rules restrict any use of the information to criminally investigate or prosecute any alcohol or drug abuse patient.[facility] CenterIn the event this information is protected by the Federal Confidentiality of Alcohol and Drug Abuse Patient Records regulations: The Federal rules restrict any use of the information to criminally investigate or prosecute any alcohol or drug abuse patient.[facility] CenterIn the event this information is protected by the Federal Confidentiality of Alcohol and Drug Abuse Patient Records regulations: The Federal rules restrict any use of the information to criminally investigate or prosecute any alcohol or drug abuse patient.[facility] CenterIn the event this information is protected by the Federal Confidentiality of Alcohol and Drug Abuse Patient Records regulations: The Federal rules restrict any use of the information to criminally investigate or prosecute any alcohol or drug abuse patient.[facility] Reason for Visit (unrecogniz ed section and content) Reason Comments Transition Of Care Reason Comments Refill Request Reason Onset Date Comments Refill Request 11/28/2021 Reason Comments Sinus Problem sinus pressure, drai nage, headache, tired and bodyaches, sore throat x 5 days Reason Comments Results, Lab Reason Onset Date Comments Refill Request 03/06/2022 Reason Comments Urinary Problem Pt reported hematuri a, frequency onset AM. Reason Comments Results Reason Onset Date Comments Refill Request 04/24/2022 Reason Onset Date Comments Refill Request 05/30/2022 Reason Onset Date Comments Refill Request 06/06/2022 Reason Comments Pain, Throat Pt reported cough,th roat redness, [place], x1 wk. Reason Comments Medication Problem Reason Comments Follow Up 6 month Reason Comments Consult Reason Comments Physical Reason Comments Yearly Exam Care Teams (unrecognized sec tion and content) Chronic Disease Epidemiologist Relationship Specialty Start Date End Date Pito Moya MD [address] [facility] [place] [address] PCP - General Family Practice 07/19/21 Chronic Disease Epidemiologist Relationship Specialty Start Date End Date Pito Moya MD [address] [facility] [place] [place] [address] PCP - General Family Practice 07/19/21 Chronic Disease Epidemiologist Relationship Specialty Start Date End Date Pito Moya MD [address] [facility] [place] [address] PCP - General Family Practice 07/19/21 Chronic Disease Epidemiologist Relationship Specialty Start Date End Date Pito Moya MD [address] [facility] [place] [address] PCP - General Family Practice 07/19/21 Chronic Disease Epidemiologist Relationship Specialty Start Date End Date Pito Moya MD [address] [facility] [place] [address] PCP - General Family Medicine 07/19/21 Chronic Disease Epidemiologist Relationship Specialty Start Date End Date Pito Moya MD [address] [facility] [place] [address] PCP - General Family Medicine 07/19/21 Chronic Disease Epidemiologist Relationship Specialty Start Date End Date Pito Moya MD [address] [facility] [place] [address] PCP - General Family Medicine 07/19/21 Chronic Disease Epidemiologist Relationship Specialty Start Date End Date Pito Moya MD [address] [facility] [place] [place] [address] PCP - General Family Medicine 07/19/21 Chronic Disease Epidemiologist Relationship Specialty Start Date End Date Pito Moya MD [address] [facility] [place] [address] PCP - General Family Medicine 07/19/21 Chronic Disease Epidemiologist Relationship Specialty Start Date End Date Pito Moya MD [address] [place] [address] PCP - General Family Medicine 07/19/21 Chronic Disease Epidemiologist Relationship Specialty Start Date End Date Pito Moya MD [address] [place] [address] PCP - General Family Medicine 07/19/21 Chronic Disease Epidemiologist Relationship Specialty Start Date End Date Pito Moya MD [address] [place] [address] PCP - General Family Medicine 07/19/21 Chronic Disease Epidemiologist Relationship Specialty Start Date End Date Pito Moya MD [address] [place] [address] PCP - General Family Medicine 07/19/21 Chronic Disease Epidemiologist Relationship Specialty Start Date End Date Pito Moya MD [address] [place] [address] PCP - General Family Medicine 07/19/21 Chronic Disease Epidemiologist Relationship Specialty Start Date End Date Pito Moya MD [address] [facility] [place] [address] PCP - General Family Medicine 07/19/21 Team Status: Active Member Role Status Jasmyn Heart MD Primary Care Provider Active Team Status: Inactive Member Role Status Jasmyn Heart MD Primary Care Provider, Attending Prov ider Active Team Status: Inactive Member Role Status Jasmyn Heart MD Primary Care Provider Active SWATHI SHELDON Attending Provider, Referring Prov ider Active Chronic Disease Epidemiologist Relationship Specialty Start Date End Date Pito Moya MD [address] [facility] [place] [place] [address] PCP - General Family Medicine 07/19/21 Chronic Disease Epidemiologist Relationship Specialty Start Date End Date Keith Heart MD [address] [facility] [address] [place] [address] PCP - General Internal Medicine 05/21/23 Chronic Disease Epidemiologist Relationship Specialty Start Date End Date Keith Heart MD [address] [facility] [address] [place] [address] PCP - General Internal Medicine 05/21/23 Chronic Disease Epidemiologist Relationship Specialty Start Date End Date Keith Heart MD [address] [facility] [address] [place] [address] PCP - General Internal Medicine 05/21/23 Chronic Disease Epidemiologist Relationship Specialty Start Date End Date Keith Heart MD [address] [facility] [address] [place] [address] PCP - General Internal Medicine 05/21/23 Team Status: Inactive Member Role Status Jasmyn Heart MD Primary Care Provide r, Attending Provider, Referring Provider Active Team Status: Inactive Member Role Status Jasmyn Heart MD Primary Care Provide r, Attending Provider, Referring Provider Active SWATHI SHELDON Other Provider Active Team Status: Inactive Member Role Status Jasmyn Heart MD Primary Care Provider, Other Provider Active SWATHI SHELDON Attending Provider, Referring Prov ider Active Chronic Disease Epidemiologist Relationship Specialty Start Date End Date Keith Heatr MD [address] [facility] [address] [place] [address] PCP - General Internal Medicine 05/21/23 Chronic Disease Epidemiologist Relationship Specialty Start Date End Date Keith Heart MD [address] [facility] [address] [place], [place] [address] PCP - General Internal Medicine 05/21/23 Chronic Disease Epidemiologist Relationship Specialty Start Date End Date Keith Heart MD [address] [facility] [address] [place], [place] [address] PCP - General Internal Medicine 05/21/23 Team Status: Inactive Member Role Status Dates Keith Heart MD Primary Care Provider Active St art: July 29, 2024 End: July 29, 2024 SWATHI SHELDON Attending Provider Active St art: July 29, 2024 End: July 29, 2024 SWATHI SHELDON Referring Provider Active St art: July 29, 2024 End: July 29, 2024 Team Status: Inactive Member Role Status Jasmyn Heart MD Primary Care Provider Active St art: September 08, 2024 End: September 08, 2024 Keith Heart MD Attending Provider Active Start : September 08, 2024 End: September 08, 2024 Keith Heart MD Referring Provider Active Start : September 08, 2024 End: September 08, 2024 Team Status: Active Member Role/Relationship Status Jasmyn Heart MD Primary Care Provider Active Team Status: Inactive Member Role/Relationship Status Jasmyn Heart MD Primary Care Provider Active St art: July 29, 2024 End: July 29, 2024 SWATHI SHELDON Attending Provider Active St art: July 29, 2024 End: July 29, 2024 SWATHI SHELDON Referring Provider Active St art: July 29, 2024 End: July 29, 2024 Team Status: Inactive Member Role/Relationship Status Jasmyn Heart MD Primary Care Provider Active St art: September 08, 2024 End: September 08, 2024 Keith Heart MD Attending Provider Active Start : September 08, 2024 End: September 08, 2024 Keith Heart MD Referring Provider Active Start : September 08, 2024 End: September 08, 2024 Team Status: Inactive Member Role/Relationship Status Dates Keith Heart MD Primary Care Provider Active St art: October 07, 2024 End: October 07, 2024 Keith Heart MD Attending Provider Active Start : October 07, 2024 End: October 07, 2024 Keith Heart MD Referring Provider Active Start : October 07, 2024 End: October 07, 2024 Goals (unrecognized section and content) Goals may be documented in a n alternate sectionGoals may be documented in an alternate sectionGoals may be documented in an alternate sectionGoals may be documented in an alternate sectionGoals may be documented in an alternate sectionGoals may be documented in an alternate sectionGoals may be documented in an alternate section INFORMATION SOURCE (unrecogn ized section and content) DATE CREATED AUTHOR 06/06/2023 [facility] DATE CREATED AUTHOR AUTHOR'S ORGANIZ ATION 05/29/2024 [facility] DATE CREATED AUTHOR AUTHOR'S ORGANIZ ATION 10/17/2024 [facility] FOR RECORDS PERTAINING TO PATIENTS WHO ARE OR HAVE BEEN ENROLLED IN A CHEMICAL DEPENDENCY/SUBSTANCEABUSE PROGRAM, SOME INFORMATION MAY BE OMITTED. This clinical summary was aggregated from multiple sources. Caution should be exercised in using it in the provision of clinical care. This summary normalizes information from multiple sources, and as a consequence, information in this document may materially change the coding, format and clinical context of patient data. In addition, data may be omitted in some cases. CLINICAL DECISIONS SHOULD BE BASED ON THE PRIMARY CLINICAL RECORDS. [facility] [employer] [facility]. provides no warranty or guarantee of the accuracy or completeness of information in this document.
== END | disposition home or self-care (01) ==
LOC: MFPLAB 10:42
PROVIDERS: PCP Family Medicine; Visit Provider Family Medicine
DX: E11.9 Type 2 diabetes mellitus without complications (principal)
CPT/HCPCS: 36415; 82043; 83036

== ENCOUNTER → 2025-01-18 | Outpatient (CLI) | payer MEDICARE, OTHER, SELFPAY ==
--- NOTE | 2025-01-18 10:05 | RAD_ITS ---
PROCEDURE: KNEE 4 OR MORE VIEWS 01/18/2025 REASON FOR EXAM: ACUTE PAIN TECHNIQUE: Procedure Code: RADKN Modality: DX Procedure: KNEE 4 OR MORE VIEWS Laterality: FINDINGS: No evidence of acute fracture or dislocation. Mild degenerative changes of the knee. No knee joint effusion. RAD/Knee 4 or More Views IMPRESSION: No acute osseous abnormality. Mild osteoarthrosis. Reading Location: [id number]
--- NOTE | 2025-01-18 10:05 | RAD_ITS ---
PROCEDURE: KNEE 4 OR MORE VIEWS 01/18/2025 REASON FOR EXAM: ACUTE PAIN TECHNIQUE: Procedure Code: RADKN Modality: DX Procedure: KNEE 4 OR MORE VIEWS Laterality: FINDINGS: No evidence of acute fracture or dislocation. Mild degenerative changes of the knee. No knee joint effusion. RAD/Knee 4 or More Views IMPRESSION: No acute osseous abnormality. Mild osteoarthrosis. Reading Location: [id number]
== END | disposition home or self-care (01) ==
LOC: MTRAD 10:01
PROVIDERS: PCP Family Medicine; Referring Provider Family Medicine; Visit Provider Family Medicine
DX: M25.561 Pain in right knee (principal)
CPT/HCPCS: 73564

== ENCOUNTER → 2025-02-08 | Outpatient (CLI) | payer MEDICARE, OTHER, SELFPAY ==
[2025-02-08 12:38] LABS: Hematocrit 40.3 % (37-47); Hemoglobin 13.0 g/dL (12.0-15.0); Mean Corp Hgb Conc 32.3 g/dL (32-36); Mean Corpuscular Volume 85.9 fL (81-99); Mean Platelet Vol. 11.5 fl (6.2-12.0); Platelet Count 168 K/mm3 (150-450); RBC Distribution Width CV 14.1 % (11.6-14.6); RBC Distribution Width SD 44.2 fl (35.1-43.9); Red Blood Count 4.69 M/mm3 (4.2-5.4); White Blood Count 6.2 K/mm3 (4.4-11.0)
[2025-02-08 12:58] LABS: PTHIN 62 pg/mL (11-61)
[2025-02-08 13:07] LABS: Albumin, Serum 4.3 g/dL (3.4-4.8); Anion Gap 11 (5-15); BUN 25 mg/dL (4-19); BUN/Creat Ratio 16.5 RATIO (10-20); Calcium,Total 9.9 mg/dL (7.6-11.0); Carbon Dioxide 28.0 mmol/L (21.0-32.0); Chloride 98 mmol/L (98-108); Creatinine, Urine (random) 99.80 mg/dL (28.00-217.00); Glucose 190 mg/dL (70-99); Potassium 4.4 mmol/L (3.3-5.1); Protein, Urine (Random) 8.8 mg/dL (0.0-12.0); Protein:Creat Ratio 88 mg/g CRE (0-200); Vitamin D,25 Hydroxy 35.5 ng/mL (30-100)
== END | disposition home or self-care (01) ==
LOC: MTLAB 09:59
PROVIDERS: PCP Family Medicine
DX: N18.31 Chronic kidney disease, stage 3a (principal)
CPT/HCPCS: 36415; 80069; 82306; 82570; 83970; 84156; 85027